=== PATIENT | female | born 1950 | race Caucasian/White ===

== ENCOUNTER → 2018-11-04 13:42 | Outpatient (CLI) | payer MEDICARE, OTHER, SELFPAY | PROVIDERS: PCP Family Medicine; Visit Provider Family Medicine | DX: I89.0 Lymphedema, not elsewhere classified (principal); S31.103A Unspecified open wound of abdominal wall, right lower quadrant without penetration into peritoneal cavity, initial encounter; E11.622 Type 2 diabetes mellitus with other skin ulcer | CPT/HCPCS: 11042; 87070; 87075; 87205; 99203; 99213 ==

== ENCOUNTER → 2018-11-18 13:02 | Outpatient (CLI) | payer MEDICARE, OTHER, SELFPAY | PROVIDERS: PCP Family Medicine; Visit Provider Family Medicine | DX: I89.0 Lymphedema, not elsewhere classified (principal); E11.622 Type 2 diabetes mellitus with other skin ulcer; S31.103D Unspecified open wound of abdominal wall, right lower quadrant without penetration into peritoneal cavity, subsequent encounter | CPT/HCPCS: 99213 ==

== ENCOUNTER → 2018-12-02 12:57 | Outpatient (CLI) | payer MEDICARE, OTHER, SELFPAY | PROVIDERS: PCP Family Medicine; Visit Provider Family Medicine | DX: I89.0 Lymphedema, not elsewhere classified (principal); S31.103A Unspecified open wound of abdominal wall, right lower quadrant without penetration into peritoneal cavity, initial encounter; E11.622 Type 2 diabetes mellitus with other skin ulcer; E66.01 Morbid (severe) obesity due to excess calories | CPT/HCPCS: 11042; 87070; 87075; 87077; 87186; 87205 ==

== ENCOUNTER → 2018-12-09 10:57 | Outpatient (CLI) | payer MEDICARE, OTHER, SELFPAY | PROVIDERS: PCP Family Medicine; Visit Provider Family Medicine | DX: E11.628 Type 2 diabetes mellitus with other skin complications (principal); I89.0 Lymphedema, not elsewhere classified; S31.103A Unspecified open wound of abdominal wall, right lower quadrant without penetration into peritoneal cavity, initial encounter; L08.9 Local infection of the skin and subcutaneous tissue, unspecified; B96.4 Proteus (mirabilis) (morganii) as the cause of diseases classified elsewhere; E66.01 Morbid (severe) obesity due to excess calories | CPT/HCPCS: 11044; 97597; 99203; 99213; 99214 ==

== ENCOUNTER → 2018-12-24 13:03 | Outpatient (CLI) | payer MEDICARE, OTHER, SELFPAY | PROVIDERS: PCP Family Medicine; Visit Provider Family Medicine | DX: E11.628 Type 2 diabetes mellitus with other skin complications (principal); S31.103D Unspecified open wound of abdominal wall, right lower quadrant without penetration into peritoneal cavity, subsequent encounter; I89.0 Lymphedema, not elsewhere classified; L08.9 Local infection of the skin and subcutaneous tissue, unspecified; B96.4 Proteus (mirabilis) (morganii) as the cause of diseases classified elsewhere; E66.01 Morbid (severe) obesity due to excess calories | CPT/HCPCS: 99212; 99213 ==

== ENCOUNTER → 2019-01-07 09:56 | Outpatient (CLI) | payer MEDICARE, OTHER, SELFPAY | PROVIDERS: PCP Family Medicine; Visit Provider Family Medicine | DX: I89.0 Lymphedema, not elsewhere classified (principal); S31.103A Unspecified open wound of abdominal wall, right lower quadrant without penetration into peritoneal cavity, initial encounter; E11.622 Type 2 diabetes mellitus with other skin ulcer | CPT/HCPCS: 11042; 87070; 87077; 87185; 87186; 87205 ==

== ENCOUNTER → 2019-02-10 13:09 | Outpatient (CLI) | payer MEDICARE, OTHER, SELFPAY | PROVIDERS: PCP Family Medicine; Visit Provider Family Medicine | DX: E11.628 Type 2 diabetes mellitus with other skin complications (principal); S31.103A Unspecified open wound of abdominal wall, right lower quadrant without penetration into peritoneal cavity, initial encounter; I89.0 Lymphedema, not elsewhere classified; E66.01 Morbid (severe) obesity due to excess calories | CPT/HCPCS: 17250 ==

== ENCOUNTER → 2019-02-24 09:47 | Outpatient (CLI) | payer MEDICARE, OTHER, SELFPAY | PROVIDERS: PCP Family Medicine; Visit Provider Family Medicine | DX: E11.628 Type 2 diabetes mellitus with other skin complications (principal); S31.103A Unspecified open wound of abdominal wall, right lower quadrant without penetration into peritoneal cavity, initial encounter; I89.0 Lymphedema, not elsewhere classified; R23.8 Other skin changes | CPT/HCPCS: 11042; 87070; 87075; 87077; 87147; 87185; 87186; 87205 ==

== ENCOUNTER → 2019-03-17 13:19 | Outpatient (CLI) | payer MEDICARE, OTHER, SELFPAY | PROVIDERS: PCP Family Medicine; Visit Provider Family Medicine | DX: I89.0 Lymphedema, not elsewhere classified (principal); S31.103A Unspecified open wound of abdominal wall, right lower quadrant without penetration into peritoneal cavity, initial encounter; E11.628 Type 2 diabetes mellitus with other skin complications | CPT/HCPCS: 11042; 97605; 99214 ==

== ENCOUNTER → 2019-03-19 08:47 | Outpatient (CLI) | payer MEDICARE, OTHER, SELFPAY | PROVIDERS: PCP Family Medicine; Visit Provider Family Medicine | DX: I89.0 Lymphedema, not elsewhere classified (principal); S31.103A Unspecified open wound of abdominal wall, right lower quadrant without penetration into peritoneal cavity, initial encounter | CPT/HCPCS: 97607 ==

== ENCOUNTER → 2019-03-24 09:31 | Outpatient (CLI) | payer MEDICARE, OTHER, SELFPAY | PROVIDERS: PCP Family Medicine; Visit Provider Family Medicine | DX: I89.0 Lymphedema, not elsewhere classified (principal); S31.103A Unspecified open wound of abdominal wall, right lower quadrant without penetration into peritoneal cavity, initial encounter; R23.8 Other skin changes; E11.628 Type 2 diabetes mellitus with other skin complications | CPT/HCPCS: 11042 ==

== ENCOUNTER → 2019-03-31 10:03 | Outpatient (CLI) | payer MEDICARE, OTHER, SELFPAY | PROVIDERS: PCP Family Medicine; Visit Provider Family Medicine | DX: E11.622 Type 2 diabetes mellitus with other skin ulcer (principal); I89.0 Lymphedema, not elsewhere classified; S31.103A Unspecified open wound of abdominal wall, right lower quadrant without penetration into peritoneal cavity, initial encounter; R23.8 Other skin changes | CPT/HCPCS: 97597 ==

== ENCOUNTER 2019-04-02 14:30 | Outpatient (RCR) | payer MEDICARE, OTHER, SELFPAY ==
--- NOTE | 2019-03-05 16:02 | PT.OIE ---
Current Diagnoses Lymphedema, not elsewhere classified (03/05/19) Unspecified open wound of abdominal wall, right lower quadrant without penetration into peritoneal cavity, initial encounter (03/05/19) Visit Care Team Role Provider Type Cee Diggs DO Primary Care Provider Non-Staff Specialty: Family Practice Address: [address] [place] [address], [phone] Email: Pawel Mckenzie MD Attending Provider Physician Specialty: Wound Care Address: [address] [place] [address], [phone] Email: [email or web address] Physical Therapy Initial Evaluation PT-OP-A Visit Information Start: 03/04/19 16:21 Freq: Status: Active Protocol: Document 03/05/19 14:30 SAK (Rec: 03/05/19 14:55 SAK [id number]) Out-Patient Physical Therapy Visit Information Visit Information Visit Type Initial Evaluation Visit Start Time 14:30 Visit Stop Time 15:21 Total Visit Minutes 51 Visit Number 1 Evaluation Information Evaluation Date 03/05/19 PT-OP-C Subjective Start: 03/04/19 16:21 Freq: Status: Active Protocol: Document 03/05/19 14:30 SAK (Rec: 03/05/19 14:55 SAK [id number]) OP-PT Subjective Patient Comments Patient Comments Patient reports Dr. Cruz thinks she has lymphedema in her abdomen though reports she has an abdominal hernia; previous history of hernia repair, redo, infection. States over the past 1 1/2 years hernia worsening right side of abdomen, denies pain. Denies LE swelling. Has been going wo wound care for abcess right side of abdomen; previously healed but then reopened. Has not been wearing any type of compression over her abdomen since her first hernia surgery . Has not had any lymph node removal. Patient is 5'3 275 lbs. OP-PT Pain Assessment Pain Assessment Grid Paper Pain Assessment Grid Completed No PT-OP-J Posture/Palpation/Skin Start: 03/04/19 16:21 Freq: Status: Active Protocol: Document 03/05/19 14:30 SAK (Rec: 03/05/19 15:47 SAK [id number]) Palpation Assessment Location abdomen Palpation Details soft, nontender, no fibrosis apparent. Good scar mobility from abdominal surgical scars. Skin Assessment Circumference Measurement below abdomen Measurement (Centimeters) 136.2 waist Measurement (Centimeters) 155 inferior to breast Measurement (Centimeters) 128.2 Incisional Assessment Incision Appearance/Comments prior abdominal surgical scars (see photos in chart) well- healed and good mobility. Other Assessments Skin Assessment Comments 2x2 dressing over abdominal wound, wound not observed. PT-OP-Q Treatments Start: 03/04/19 16:21 Freq: Status: Active Protocol: Document 03/05/19 14:30 [facility] (Rec: 03/05/19 15:59 [facility] [id number]) Self-Care/Home Management Treatment Education Other Education Discussed compression options, patient given information regarding Lymphedema products website and [facility] [place] for consultation regarding compression garment options for her abdominal edema. PT-OP-T Assessment and Plan Start: 03/04/19 16:21 Freq: Status: Active Protocol: Document 03/05/19 14:30 [facility] (Rec: 03/05/19 15:47 [facility] [id number]) Physical Therapy Assessment Rehab Potential Rehabilitation Potential Good Evaluation Complexity Number of Personal Factors/Comorbidities 1-2 Number of Body Systems Impaired 1-2 Clinical Presentation at Evaluation Evolving Impairments Impairments Edema Goals 1 Impairment edema Short Term Goal (STG) Patient to be instructed in edema management and be given information about obtaining appropriate compression garment for abdominal edema, instructed in deep breathing, ther ex, and self massage for edema reduction STG Duration 4 wks Alf Goal (LTG) Patient to be fit with appropriate abdominal compression garment and be independent in self-management . LTG Duration 8 wks Assessment Summary Assessment Patient presents with moderate edema in right side of abdomen which appears related to her abdominal hernia. She would benefit from the use of an abdominal compression garment, plus ther ex and massage for edema management. Additionally I recommend she return to her surgeon to consider surgical repair of her hernia which appears to be worsening. No fibrosis of tissue present. She is in agreement. Our facility did not have an appropriate compression garment for her; I showed her options online and gave her information for [facility] [place] to obtain appropriate garment. She was receptive and demonstrated good understanding. She will return for follow-up 03/19/19 and at that time will be instructed in ther ex (to be performed while wearing garment) and self-massage. At that time we will determine need for further PT sessions. Physical Therapy Plan Frequency and Duration Frequency of Treatment 1x/Week Duration of Treatment 8 wks Plan of Care Start Date 03/05/19 Plan of Care End Date 04/25/19 Therapeutic Interventions Therapeutic Interventions Home Exercise Program,Manual Therapy,Self-Care/Home Management,Therapeutic Exercises Next Visit Focus/Plan Next Note Type Treatment Note Next Visit Plan Assess any garment patient has obtained for proper fit and edema control. Circumferential measurements, instruct in ther ex and provide gentle massage for edema reduction with instruction for self- management..
--- NOTE | 2019-03-19 07:58 | PT-OP ANOTE ---
Patient cancelled appointment due to not having followed up with surgeon yet and hasn't yet obtained appropriate abdominal binder.
--- NOTE | 2019-04-02 15:27 | PT.OTN ---
Current Diagnoses Lymphedema, not elsewhere classified (04/02/19) Unspecified open wound of abdominal wall, right lower quadrant without penetration into peritoneal cavity, initial encounter (04/02/19) Physical Therapy Treatment Note PT-OP-A Visit Information Start: 03/04/19 16:21 Freq: Status: Active Protocol: Document 04/02/19 14:30 SAK (Rec: 04/02/19 15:26 SAK [id number]) Out-Patient Physical Therapy Visit Information Visit Information Visit Type Treatment Note Visit Start Time 14:30 Visit Stop Time 15:13 Total Visit Minutes 43 Visit Number 2 Evaluation Information Evaluation Date 03/05/19 PT-OP-C Subjective Start: 03/04/19 16:21 Freq: Status: Active Protocol: Document 04/02/19 14:30 SAK (Rec: 04/02/19 15:26 SAK [id number]) OP-PT Subjective Patient Comments Patient Comments States it has been a rough few weeks with use of wound vac and debridement of her wound. Reports Dr. Cruz says the abdominal binder she bought online (went to [employer] but states they didn't have other options besides what she could obtain online) can be worn over the wound vac. She has had moderate discomfort in her abdomen due to the debridement and wound vac. PT-OP-J Posture/Palpation/Skin Start: 03/04/19 16:21 Freq: Status: Active Protocol: Document 03/05/19 14:30 SAK (Rec: 03/05/19 15:47 SAK [id number]) Palpation Assessment Location abdomen Palpation Details soft, nontender, no fibrosis apparent. Good scar mobility from abdominal surgical scars. Skin Assessment Circumference Measurement below abdomen Measurement (Centimeters) 136.2 waist Measurement (Centimeters) 155 inferior to breast Measurement (Centimeters) 128.2 Incisional Assessment Incision Appearance/Comments prior abdominal surgical scars (see photos in chart) well- healed and good mobility. Other Assessments Skin Assessment Comments 2x2 dressing over abdominal wound, wound not observed. PT-OP-Q Treatments Start: 03/04/19 16:21 Freq: Status: Active Protocol: Document 04/02/19 14:30 SAK (Rec: 04/02/19 15:26 SAK [id number]) Therapeutic Exercises Supine Exercises shoulder flexion Reps/Minutes 2x5 hip IR/ER Comments 2x5 bridging Reps/Minutes 2x5 lower trunk rotation Reps/Minutes 2x5 diaphragmatic breathing Reps/Minutes 2x5 Self-Care/Home Management Treatment Education Other Education Patient abdominal binder applied; requires 2 people and patient to assist. Good fit achieved with multiple positions with no slipping. Patient instructed in HEP for activation of lymphatic system to be done while wearing binder. Also instructed to begin use of her exercise bike at home to facilitate lymphatic flow while wearing compression binder. Patient to contact PT with any further issues. May schedule follow-up to measure circumference after use of binder 1-2 wks. PT-OP-T Assessment and Plan Start: 03/04/19 16:21 Freq: Status: Active Protocol: Document 04/02/19 14:30 SAK (Rec: 04/02/19 15:26 SAK [id number]) Physical Therapy Assessment Rehab Potential Rehabilitation Potential Good Evaluation Complexity Number of Personal Factors/Comorbidities 1-2 Number of Body Systems Impaired 1-2 Clinical Presentation at Evaluation Evolving Impairments Impairments Edema Goals 1 Impairment edema Short Term Goal (STG) Patient to be instructed in edema management and be given information about obtaining appropriate compression garment for abdominal edema, instructed in deep breathing, ther ex, and self massage for edema reduction STG Duration goal met 04/02/19 Assisted Goal (LTG) Patient to be fit with appropriate abdominal compression garment and be independent in self-management . 04/02/19: binder fits appropriately, patient to have assistance of for proper fit and support and demonstrated good understanding. She demonstrated good understanding of exercises to be performed while wearing binder for compression. Was able to tolerate 10 min on ex recumbent elliptical and plans to start use of exercise bike at home. She will contact PT with any further difficulties or issues. LTG Duration 8 wks Assessment Summary Assessment Patient to be on hold for PT pending any further difficulties or issues with use of binder and self management of edema. Physical Therapy Plan Frequency and Duration Frequency of Treatment 1x/Week Duration of Treatment 8 wks Plan of Care Start Date 03/05/19 Plan of Care End Date 04/25/19 Therapeutic Interventions Therapeutic Interventions Home Exercise Program,Manual Therapy,Self-Care/Home Management,Therapeutic Exercises Next Visit Focus/Plan Next Note Type Treatment Note Next Visit Plan Patient on hold at this time for PT; will contact if any further issues with binder or therapeutic exercises. She is going to consult with surgeon regarding hernia.
--- NOTE | 2019-06-30 11:06 | PT.OPDS ---
Current Diagnoses Lymphedema, not elsewhere classified (04/02/19) Unspecified open wound of abdominal wall, right lower quadrant without penetration into peritoneal cavity, initial encounter (04/02/19) Visit Care Team Role Provider Type Cee Diggs DO Primary Care Provider Non-Staff Specialty: Family Practice Address: [address] [place] [address], [phone] Email: Pawel Mckenzie MD Attending Provider Physician Specialty: Wound Care Address: [address] [place] [address], [id number] Email: [email or web address] Visit Number Visit Number 2 Discharge Summary PT-OP-C Subjective Start: 03/04/19 16:21 Freq: Status: Active Protocol: Document 04/02/19 14:30 SAK (Rec: 04/02/19 15:26 SAK [id number]) OP-PT Subjective Patient Comments Patient Comments States it has been a rough few weeks with use of wound vac and debridement of her wound. Reports Dr. Cruz says the abdominal binder she bought online (went to [facility] but states they didn't have other options besides what she could obtain online) can be worn over the wound vac. She has had moderate discomfort in her abdomen due to the debridement and wound vac. PT-OP-J Posture/Palpation/Skin Start: 03/04/19 16:21 Freq: Status: Active Protocol: Document 03/05/19 14:30 SAK (Rec: 03/05/19 15:47 SAK [id number]) Palpation Assessment Location abdomen Palpation Details soft, nontender, no fibrosis apparent. Good scar mobility from abdominal surgical scars. Skin Assessment Circumference Measurement below abdomen Measurement (Centimeters) 136.2 waist Measurement (Centimeters) 155 inferior to breast Measurement (Centimeters) 128.2 Incisional Assessment Incision Appearance/Comments prior abdominal surgical scars (see photos in chart) well- healed and good mobility. Other Assessments Skin Assessment Comments 2x2 dressing over abdominal wound, wound not observed. PT-OP-T Assessment and Plan Start: 03/04/19 16:21 Freq: Status: Active Protocol: Document 06/30/19 11:05 SAK (Rec: 06/30/19 11:06 PHILOMENA [id number]) Physical Therapy Plan Discharge Physical Therapy Discharge Reasons No Longer Attending PT Discharge Comments following up with physician and surgeon
== END 2019-07-01 07:56 ==
LOC: PHYS 14:30
PROVIDERS: PCP Family Medicine; Visit Provider Family Medicine
DX: I89.0 Lymphedema, not elsewhere classified (principal); S31.103A Unspecified open wound of abdominal wall, right lower quadrant without penetration into peritoneal cavity, initial encounter
CPT/HCPCS: 97110; 97162; 97535

== ENCOUNTER → 2019-04-03 14:55 | Outpatient (CLI) | payer MEDICARE, OTHER, SELFPAY | PROVIDERS: PCP Family Medicine; Visit Provider Family Medicine | DX: I89.0 Lymphedema, not elsewhere classified (principal); S31.103A Unspecified open wound of abdominal wall, right lower quadrant without penetration into peritoneal cavity, initial encounter | CPT/HCPCS: 97607 ==

== ENCOUNTER → 2019-04-10 10:08 | Outpatient (CLI) | payer MEDICARE, OTHER, SELFPAY | PROVIDERS: PCP Family Medicine; Visit Provider Family Medicine | DX: E11.628 Type 2 diabetes mellitus with other skin complications (principal); S31.103A Unspecified open wound of abdominal wall, right lower quadrant without penetration into peritoneal cavity, initial encounter; I89.0 Lymphedema, not elsewhere classified; R23.8 Other skin changes | CPT/HCPCS: 11042; 97607 ==

== ENCOUNTER → 2019-04-16 14:54 | Outpatient (CLI) | payer MEDICARE, OTHER, SELFPAY | PROVIDERS: PCP Family Medicine; Visit Provider Family Medicine | DX: I89.0 Lymphedema, not elsewhere classified (principal); S31.103A Unspecified open wound of abdominal wall, right lower quadrant without penetration into peritoneal cavity, initial encounter; E11.628 Type 2 diabetes mellitus with other skin complications | CPT/HCPCS: 11042 ==

== ENCOUNTER → 2019-05-05 10:57 | Outpatient (CLI) | payer MEDICARE, OTHER, SELFPAY | PROVIDERS: PCP Family Medicine; Visit Provider Family Medicine | DX: E11.628 Type 2 diabetes mellitus with other skin complications (principal); I89.0 Lymphedema, not elsewhere classified; S31.103A Unspecified open wound of abdominal wall, right lower quadrant without penetration into peritoneal cavity, initial encounter; R23.8 Other skin changes | CPT/HCPCS: 17250 ==

== ENCOUNTER → 2019-05-12 10:09 | Outpatient (CLI) | payer MEDICARE, OTHER, SELFPAY | PROVIDERS: PCP Family Medicine; Visit Provider Family Medicine | DX: I89.0 Lymphedema, not elsewhere classified (principal); R23.8 Other skin changes; Z79.84 Long term (current) use of oral hypoglycemic drugs; E11.628 Type 2 diabetes mellitus with other skin complications | CPT/HCPCS: 99212 ==

== ENCOUNTER → 2020-02-23 12:55 | Outpatient (CLI) | payer MEDICARE, OTHER, SELFPAY | PROVIDERS: PCP Family Medicine; Referring Provider Family Medicine; Visit Provider Family Medicine | DX: I89.0 Lymphedema, not elsewhere classified (principal); S31.103A Unspecified open wound of abdominal wall, right lower quadrant without penetration into peritoneal cavity, initial encounter; E11.622 Type 2 diabetes mellitus with other skin ulcer; L08.9 Local infection of the skin and subcutaneous tissue, unspecified | CPT/HCPCS: 11042; 87070; 87075; 87077; 87147; 87186; 87205; 99214 ==

== ENCOUNTER → 2020-03-01 11:36 | Outpatient (CLI) | payer MEDICARE, OTHER, SELFPAY | PROVIDERS: PCP Family Medicine; Referring Provider Family Medicine; Visit Provider Family Medicine | DX: I89.0 Lymphedema, not elsewhere classified (principal); S31.103A Unspecified open wound of abdominal wall, right lower quadrant without penetration into peritoneal cavity, initial encounter; E11.628 Type 2 diabetes mellitus with other skin complications | CPT/HCPCS: 11042; 11045 ==

== ENCOUNTER → 2020-03-08 10:52 | Outpatient (CLI) | payer MEDICARE, OTHER, SELFPAY | PROVIDERS: PCP Family Medicine; Referring Provider Family Medicine; Visit Provider Family Medicine | DX: I89.0 Lymphedema, not elsewhere classified (principal); S31.103A Unspecified open wound of abdominal wall, right lower quadrant without penetration into peritoneal cavity, initial encounter | CPT/HCPCS: 99213 ==

== ENCOUNTER → 2020-03-15 14:15 | Outpatient (CLI) | payer MEDICARE, OTHER, SELFPAY | PROVIDERS: PCP Family Medicine; Referring Provider Family Medicine; Visit Provider Family Medicine | DX: I89.0 Lymphedema, not elsewhere classified (principal); E11.628 Type 2 diabetes mellitus with other skin complications; S31.103A Unspecified open wound of abdominal wall, right lower quadrant without penetration into peritoneal cavity, initial encounter | CPT/HCPCS: 11042; 11045 ==

== ENCOUNTER → 2020-03-22 15:33 | Outpatient (CLI) | payer MEDICARE, OTHER, SELFPAY | PROVIDERS: PCP Family Medicine; Referring Provider Family Medicine; Visit Provider Family Medicine | DX: I89.0 Lymphedema, not elsewhere classified (principal); S31.103A Unspecified open wound of abdominal wall, right lower quadrant without penetration into peritoneal cavity, initial encounter; E11.628 Type 2 diabetes mellitus with other skin complications | CPT/HCPCS: 11042 ==

== ENCOUNTER → 2020-03-29 15:17 | Outpatient (CLI) | payer MEDICARE, OTHER, SELFPAY | PROVIDERS: PCP Family Medicine; Referring Provider Family Medicine; Visit Provider Family Medicine | DX: I89.0 Lymphedema, not elsewhere classified (principal); E11.628 Type 2 diabetes mellitus with other skin complications; S31.103A Unspecified open wound of abdominal wall, right lower quadrant without penetration into peritoneal cavity, initial encounter; E11.622 Type 2 diabetes mellitus with other skin ulcer; L08.9 Local infection of the skin and subcutaneous tissue, unspecified; R60.0 Localized edema | CPT/HCPCS: 11042; 11045; 87070; 87075; 87077; 87186; 87205; 99214 ==

== ENCOUNTER → 2020-04-13 14:27 | Outpatient (CLI) | payer MEDICARE, OTHER, SELFPAY | PROVIDERS: PCP Family Medicine; Referring Provider Family Medicine; Visit Provider Family Medicine | DX: E11.628 Type 2 diabetes mellitus with other skin complications (principal); I89.0 Lymphedema, not elsewhere classified; S31.103A Unspecified open wound of abdominal wall, right lower quadrant without penetration into peritoneal cavity, initial encounter | CPT/HCPCS: 15271; Q4110 ==

== ENCOUNTER → 2020-04-19 09:39 | Outpatient (CLI) | payer MEDICARE, OTHER, SELFPAY | PROVIDERS: PCP Family Medicine; Referring Provider Family Medicine; Visit Provider Family Medicine | DX: E11.628 Type 2 diabetes mellitus with other skin complications (principal); I89.0 Lymphedema, not elsewhere classified; S31.103A Unspecified open wound of abdominal wall, right lower quadrant without penetration into peritoneal cavity, initial encounter; L08.9 Local infection of the skin and subcutaneous tissue, unspecified | CPT/HCPCS: 11042; 87070; 87077; 87186; 87205; 99214 ==

== ENCOUNTER → 2020-04-25 10:30 | Outpatient (CLI) | payer MEDICARE, OTHER, SELFPAY | PROVIDERS: PCP Family Medicine; Referring Provider Family Medicine; Visit Provider Family Medicine | DX: I89.0 Lymphedema, not elsewhere classified (principal); S31.103A Unspecified open wound of abdominal wall, right lower quadrant without penetration into peritoneal cavity, initial encounter; L08.9 Local infection of the skin and subcutaneous tissue, unspecified; L03.311 Cellulitis of abdominal wall; E11.628 Type 2 diabetes mellitus with other skin complications | CPT/HCPCS: 11042; 87070; 87075; 87077; 87186; 87205; 99214 ==

== ENCOUNTER → 2020-05-02 15:11 | Outpatient (CLI) | payer MEDICARE, OTHER, SELFPAY | PROVIDERS: PCP Family Medicine; Referring Provider Family Medicine; Visit Provider Family Medicine | DX: E11.628 Type 2 diabetes mellitus with other skin complications (principal); S31.103A Unspecified open wound of abdominal wall, right lower quadrant without penetration into peritoneal cavity, initial encounter; I89.0 Lymphedema, not elsewhere classified; Z79.2 Long term (current) use of antibiotics | CPT/HCPCS: 11042; 99213; Q4105 ==

== ENCOUNTER → 2020-05-09 14:35 | Outpatient (CLI) | payer MEDICARE, OTHER, SELFPAY | PROVIDERS: PCP Family Medicine; Referring Provider Family Medicine; Visit Provider Family Medicine | DX: I89.0 Lymphedema, not elsewhere classified (principal); S31.103A Unspecified open wound of abdominal wall, right lower quadrant without penetration into peritoneal cavity, initial encounter; Z68.42 Body mass index [BMI] 45.0-49.9, adult; E11.628 Type 2 diabetes mellitus with other skin complications; E66.01 Morbid (severe) obesity due to excess calories | CPT/HCPCS: 11042 ==

== ENCOUNTER → 2020-05-17 14:59 | Outpatient (CLI) | payer MEDICARE, OTHER, SELFPAY | PROVIDERS: PCP Family Medicine; Referring Provider Family Medicine; Visit Provider Family Medicine | DX: I89.0 Lymphedema, not elsewhere classified (principal); S31.103A Unspecified open wound of abdominal wall, right lower quadrant without penetration into peritoneal cavity, initial encounter; E11.628 Type 2 diabetes mellitus with other skin complications; E66.01 Morbid (severe) obesity due to excess calories; Z68.42 Body mass index [BMI] 45.0-49.9, adult | CPT/HCPCS: 11042 ==

== ENCOUNTER → 2020-05-18 09:39 | Outpatient (CLI) | payer MEDICARE, OTHER, SELFPAY | PROVIDERS: PCP Family Medicine; Referring Provider Family Medicine; Visit Provider Family Medicine | DX: I89.0 Lymphedema, not elsewhere classified (principal); L08.9 Local infection of the skin and subcutaneous tissue, unspecified | CPT/HCPCS: 87070; 87205; 99213 ==

== ENCOUNTER → 2020-05-18 14:16 | Outpatient (ROUT) | payer MEDICARE, OTHER, SELFPAY | PROVIDERS: PCP Family Medicine; Visit Provider Family Medicine | DX: L08.9 Local infection of the skin and subcutaneous tissue, unspecified (principal) | CPT/HCPCS: 87070; 87205 ==

== ENCOUNTER → 2020-05-25 11:21 | Outpatient (CLI) | payer MEDICARE, OTHER, SELFPAY | PROVIDERS: PCP Family Medicine; Referring Provider Family Medicine; Visit Provider Family Medicine | DX: I89.0 Lymphedema, not elsewhere classified (principal); S31.103A Unspecified open wound of abdominal wall, right lower quadrant without penetration into peritoneal cavity, initial encounter; E11.628 Type 2 diabetes mellitus with other skin complications | CPT/HCPCS: 11042 ==

== ENCOUNTER → 2020-06-01 10:48 | Outpatient (CLI) | payer MEDICARE, OTHER, SELFPAY | PROVIDERS: PCP Family Medicine; Referring Provider Family Medicine; Visit Provider Family Medicine | DX: I89.0 Lymphedema, not elsewhere classified (principal); S31.103A Unspecified open wound of abdominal wall, right lower quadrant without penetration into peritoneal cavity, initial encounter; E66.01 Morbid (severe) obesity due to excess calories; E11.628 Type 2 diabetes mellitus with other skin complications | CPT/HCPCS: 15271; Q4110 ==

== ENCOUNTER → 2020-06-08 13:47 | Outpatient (CLI) | payer MEDICARE, OTHER, SELFPAY | PROVIDERS: PCP Family Medicine; Referring Provider Family Medicine; Visit Provider Family Medicine | DX: I89.0 Lymphedema, not elsewhere classified (principal); S31.103A Unspecified open wound of abdominal wall, right lower quadrant without penetration into peritoneal cavity, initial encounter | CPT/HCPCS: 99212 ==

== ENCOUNTER → 2020-06-15 14:20 | Outpatient (CLI) | payer MEDICARE, OTHER, SELFPAY | PROVIDERS: PCP Family Medicine; Referring Provider Family Medicine; Visit Provider Family Medicine | DX: I89.0 Lymphedema, not elsewhere classified (principal); S31.103A Unspecified open wound of abdominal wall, right lower quadrant without penetration into peritoneal cavity, initial encounter; E11.628 Type 2 diabetes mellitus with other skin complications | CPT/HCPCS: 11042 ==

== ENCOUNTER → 2020-06-22 10:02 | Outpatient (CLI) | payer MEDICARE, OTHER, SELFPAY | PROVIDERS: PCP Family Medicine; Referring Provider Family Medicine; Visit Provider Family Medicine | DX: I89.0 Lymphedema, not elsewhere classified (principal); S31.103A Unspecified open wound of abdominal wall, right lower quadrant without penetration into peritoneal cavity, initial encounter; E11.628 Type 2 diabetes mellitus with other skin complications; L08.9 Local infection of the skin and subcutaneous tissue, unspecified | CPT/HCPCS: 87070; 87077; 87147; 87186; 87205; 97597; 99214 ==

== ENCOUNTER → 2020-06-22 14:55 | Outpatient (ROUT) | payer MEDICARE, OTHER, SELFPAY | PROVIDERS: PCP Family Medicine; Visit Provider Family Medicine | DX: L08.9 Local infection of the skin and subcutaneous tissue, unspecified (principal) | CPT/HCPCS: 87070; 87075; 87077; 87147; 87186; 87205 ==

== ENCOUNTER → 2020-06-30 10:18 | Outpatient (CLI) | payer MEDICARE, OTHER, SELFPAY | PROVIDERS: PCP Family Medicine; Referring Provider Family Medicine; Visit Provider Family Medicine | DX: E11.628 Type 2 diabetes mellitus with other skin complications (principal); I89.0 Lymphedema, not elsewhere classified; S31.103A Unspecified open wound of abdominal wall, right lower quadrant without penetration into peritoneal cavity, initial encounter; L08.9 Local infection of the skin and subcutaneous tissue, unspecified; B95.61 Methicillin susceptible Staphylococcus aureus infection as the cause of diseases classified elsewhere; E66.01 Morbid (severe) obesity due to excess calories; Z68.42 Body mass index [BMI] 45.0-49.9, adult; Z48.01 Encounter for change or removal of surgical wound dressing | CPT/HCPCS: 99213; 99214 ==

== ENCOUNTER → 2020-07-07 09:25 | Outpatient (CLI) | payer MEDICARE, OTHER, SELFPAY | PROVIDERS: PCP Family Medicine; Referring Provider Family Medicine; Visit Provider Family Medicine | DX: I89.0 Lymphedema, not elsewhere classified (principal); E11.628 Type 2 diabetes mellitus with other skin complications; S31.103A Unspecified open wound of abdominal wall, right lower quadrant without penetration into peritoneal cavity, initial encounter; S31.105A Unspecified open wound of abdominal wall, periumbilic region without penetration into peritoneal cavity, initial encounter; E66.01 Morbid (severe) obesity due to excess calories; Z68.42 Body mass index [BMI] 45.0-49.9, adult | CPT/HCPCS: 87070; 87075; 87077; 87186; 87205; 97597; 99214 ==

== ENCOUNTER → 2020-07-13 13:28 | Outpatient (CLI) | payer MEDICARE, OTHER, SELFPAY | PROVIDERS: PCP Family Medicine; Referring Provider Family Medicine; Visit Provider Family Medicine | DX: I89.0 Lymphedema, not elsewhere classified (principal); E11.628 Type 2 diabetes mellitus with other skin complications; S31.103A Unspecified open wound of abdominal wall, right lower quadrant without penetration into peritoneal cavity, initial encounter; S31.105A Unspecified open wound of abdominal wall, periumbilic region without penetration into peritoneal cavity, initial encounter; L08.9 Local infection of the skin and subcutaneous tissue, unspecified; B95.7 Other staphylococcus as the cause of diseases classified elsewhere; E66.01 Morbid (severe) obesity due to excess calories; Z68.41 Body mass index [BMI] 40.0-44.9, adult | CPT/HCPCS: 11042; 97597 ==

== ENCOUNTER → 2020-07-27 10:38 | Outpatient (CLI) | payer MEDICARE, OTHER, SELFPAY | PROVIDERS: PCP Family Medicine; Referring Provider Family Medicine; Visit Provider Family Medicine | DX: E11.628 Type 2 diabetes mellitus with other skin complications (principal); I89.0 Lymphedema, not elsewhere classified; S31.103A Unspecified open wound of abdominal wall, right lower quadrant without penetration into peritoneal cavity, initial encounter; S31.105A Unspecified open wound of abdominal wall, periumbilic region without penetration into peritoneal cavity, initial encounter | CPT/HCPCS: 15271; 15272; Q4110 ==

== ENCOUNTER → 2020-08-03 14:13 | Outpatient (CLI) | payer MEDICARE, OTHER, SELFPAY | PROVIDERS: PCP Family Medicine; Referring Provider Family Medicine; Visit Provider Family Medicine | DX: I89.0 Lymphedema, not elsewhere classified (principal); S31.103A Unspecified open wound of abdominal wall, right lower quadrant without penetration into peritoneal cavity, initial encounter; S31.105A Unspecified open wound of abdominal wall, periumbilic region without penetration into peritoneal cavity, initial encounter; T36.8X5A Adverse effect of other systemic antibiotics, initial encounter; E11.628 Type 2 diabetes mellitus with other skin complications | CPT/HCPCS: 11042; 11045; 87070; 87075; 87077; 87186; 87205; 99214 ==

== ENCOUNTER → 2020-08-11 10:33 | Outpatient (CLI) | payer MEDICARE, OTHER, SELFPAY | PROVIDERS: PCP Family Medicine; Referring Provider Family Medicine; Visit Provider Family Medicine | DX: I89.0 Lymphedema, not elsewhere classified (principal); S31.103A Unspecified open wound of abdominal wall, right lower quadrant without penetration into peritoneal cavity, initial encounter; E11.622 Type 2 diabetes mellitus with other skin ulcer; S31.105A Unspecified open wound of abdominal wall, periumbilic region without penetration into peritoneal cavity, initial encounter; S31.100A Unspecified open wound of abdominal wall, right upper quadrant without penetration into peritoneal cavity, initial encounter; L08.9 Local infection of the skin and subcutaneous tissue, unspecified; B95.7 Other staphylococcus as the cause of diseases classified elsewhere; E11.628 Type 2 diabetes mellitus with other skin complications | CPT/HCPCS: 11042; 99214 ==

== ENCOUNTER → 2020-08-11 14:36 | Outpatient (ROUT) | payer MEDICARE, OTHER, SELFPAY | PROVIDERS: PCP Family Medicine; Visit Provider Family Medicine | DX: L08.9 Local infection of the skin and subcutaneous tissue, unspecified (principal) | CPT/HCPCS: 87070; 87075; 87077; 87147; 87186; 87205 ==

== ENCOUNTER → 2020-08-24 10:24 | Outpatient (CLI) | payer MEDICARE, OTHER, SELFPAY | PROVIDERS: PCP Family Medicine; Referring Provider Family Medicine; Visit Provider Family Medicine | DX: I89.0 Lymphedema, not elsewhere classified (principal); S31.103A Unspecified open wound of abdominal wall, right lower quadrant without penetration into peritoneal cavity, initial encounter; E11.622 Type 2 diabetes mellitus with other skin ulcer; S31.105A Unspecified open wound of abdominal wall, periumbilic region without penetration into peritoneal cavity, initial encounter; B95.7 Other staphylococcus as the cause of diseases classified elsewhere | CPT/HCPCS: 87070; 87075; 87205; 99213 ==

== ENCOUNTER → 2020-08-31 15:15 | Outpatient (CLI) | payer MEDICARE, OTHER, SELFPAY | PROVIDERS: PCP Family Medicine; Referring Provider Family Medicine; Visit Provider Family Medicine | DX: E11.628 Type 2 diabetes mellitus with other skin complications (principal); I89.0 Lymphedema, not elsewhere classified; S31.103A Unspecified open wound of abdominal wall, right lower quadrant without penetration into peritoneal cavity, initial encounter; L08.9 Local infection of the skin and subcutaneous tissue, unspecified | CPT/HCPCS: 99213; 99214 ==

== ENCOUNTER → 2020-10-10 12:08 | Outpatient (CLI) | payer MEDICARE, OTHER, SELFPAY | PROVIDERS: PCP Family Medicine; Referring Provider Family Medicine; Visit Provider Family Medicine | DX: E11.628 Type 2 diabetes mellitus with other skin complications (principal); I89.0 Lymphedema, not elsewhere classified; S31.103A Unspecified open wound of abdominal wall, right lower quadrant without penetration into peritoneal cavity, initial encounter; L08.9 Local infection of the skin and subcutaneous tissue, unspecified; E66.01 Morbid (severe) obesity due to excess calories; Z68.42 Body mass index [BMI] 45.0-49.9, adult | CPT/HCPCS: 11042; 99213 ==

== ENCOUNTER → 2020-10-31 13:19 | Outpatient (CLI) | payer MEDICARE, OTHER, SELFPAY | PROVIDERS: PCP Family Medicine; Referring Provider Family Medicine; Visit Provider Family Medicine | DX: I89.0 Lymphedema, not elsewhere classified (principal); S31.103A Unspecified open wound of abdominal wall, right lower quadrant without penetration into peritoneal cavity, initial encounter; E11.622 Type 2 diabetes mellitus with other skin ulcer | CPT/HCPCS: 97597 ==

== ENCOUNTER → 2020-11-17 11:09 | Outpatient (CLI) | payer MEDICARE, OTHER, SELFPAY | PROVIDERS: PCP Family Medicine; Referring Provider Family Medicine; Visit Provider Family Medicine | DX: I89.0 Lymphedema, not elsewhere classified (principal); S31.103A Unspecified open wound of abdominal wall, right lower quadrant without penetration into peritoneal cavity, initial encounter; E11.622 Type 2 diabetes mellitus with other skin ulcer; E66.01 Morbid (severe) obesity due to excess calories; Z68.42 Body mass index [BMI] 45.0-49.9, adult | CPT/HCPCS: 97597; 99213 ==

== ENCOUNTER → 2020-12-08 13:50 | Outpatient (CLI) | payer MEDICARE, OTHER, SELFPAY | PROVIDERS: PCP Family Medicine; Referring Provider Family Medicine; Visit Provider Family Medicine | DX: I89.0 Lymphedema, not elsewhere classified (principal); L98.491 Non-pressure chronic ulcer of skin of other sites limited to breakdown of skin; E11.622 Type 2 diabetes mellitus with other skin ulcer | CPT/HCPCS: 97597; 99212 ==

== ENCOUNTER → 2020-12-29 10:33 | Outpatient (CLI) | payer MEDICARE, OTHER, SELFPAY | PROVIDERS: PCP Family Medicine; Referring Provider Family Medicine; Visit Provider Family Medicine | DX: I89.0 Lymphedema, not elsewhere classified (principal); L98.491 Non-pressure chronic ulcer of skin of other sites limited to breakdown of skin | CPT/HCPCS: 99213 ==

== ENCOUNTER → 2021-01-18 10:03 | Outpatient (CLI) | payer MEDICARE, OTHER, SELFPAY | PROVIDERS: PCP Family Medicine; Referring Provider Family Medicine; Visit Provider Family Medicine | DX: I89.0 Lymphedema, not elsewhere classified (principal); S31.103A Unspecified open wound of abdominal wall, right lower quadrant without penetration into peritoneal cavity, initial encounter; E11.622 Type 2 diabetes mellitus with other skin ulcer | CPT/HCPCS: 97597; 99212 ==

== ENCOUNTER → 2021-02-01 10:13 | Outpatient (CLI) | payer MEDICARE, OTHER, SELFPAY | PROVIDERS: PCP Family Medicine; Referring Provider Family Medicine; Visit Provider Family Medicine | DX: I89.0 Lymphedema, not elsewhere classified (principal); S31.103A Unspecified open wound of abdominal wall, right lower quadrant without penetration into peritoneal cavity, initial encounter; E11.628 Type 2 diabetes mellitus with other skin complications | CPT/HCPCS: 11042; 99212 ==

== ENCOUNTER → 2021-02-22 10:01 | Outpatient (CLI) | payer MEDICARE, OTHER, SELFPAY | PROVIDERS: PCP Family Medicine; Referring Provider Family Medicine; Visit Provider Family Medicine | DX: S31.103A Unspecified open wound of abdominal wall, right lower quadrant without penetration into peritoneal cavity, initial encounter (principal); E11.628 Type 2 diabetes mellitus with other skin complications | CPT/HCPCS: 99213 ==

== ENCOUNTER → 2021-03-01 10:41 | Outpatient (CLI) | payer MEDICARE, OTHER, SELFPAY | PROVIDERS: PCP Family Medicine; Referring Provider Family Medicine; Visit Provider Family Medicine | DX: S31.103A Unspecified open wound of abdominal wall, right lower quadrant without penetration into peritoneal cavity, initial encounter (principal); E11.622 Type 2 diabetes mellitus with other skin ulcer | CPT/HCPCS: 87070; 87075; 87077; 87147; 87186; 87205; 99212; 99213 ==

== ENCOUNTER → 2021-03-21 14:20 | Outpatient (CLI) | payer MEDICARE, OTHER, SELFPAY | PROVIDERS: PCP Family Medicine; Referring Provider Family Medicine; Visit Provider Family Medicine | DX: S31.103A Unspecified open wound of abdominal wall, right lower quadrant without penetration into peritoneal cavity, initial encounter (principal); E11.622 Type 2 diabetes mellitus with other skin ulcer | CPT/HCPCS: 15271; 99213; Q4132 ==

== ENCOUNTER → 2021-03-28 14:32 | Outpatient (CLI) | payer MEDICARE, OTHER, SELFPAY | PROVIDERS: PCP Family Medicine; Referring Provider Family Medicine; Visit Provider Family Medicine | DX: S31.103A Unspecified open wound of abdominal wall, right lower quadrant without penetration into peritoneal cavity, initial encounter (principal); E11.622 Type 2 diabetes mellitus with other skin ulcer | CPT/HCPCS: 15271; Q4133 ==

== ENCOUNTER → 2021-04-04 10:04 | Outpatient (CLI) | payer MEDICARE, OTHER, SELFPAY | PROVIDERS: PCP Internal Medicine; Referring Provider Internal Medicine; Visit Provider Family Medicine | DX: S31.103A Unspecified open wound of abdominal wall, right lower quadrant without penetration into peritoneal cavity, initial encounter (principal); E11.622 Type 2 diabetes mellitus with other skin ulcer | CPT/HCPCS: 15271; Q4133 ==

== ENCOUNTER → 2021-04-17 13:19 | Outpatient (CLI) | payer MEDICARE, OTHER, SELFPAY | PROVIDERS: PCP Internal Medicine; Referring Provider Internal Medicine; Visit Provider Family Medicine | DX: S31.103A Unspecified open wound of abdominal wall, right lower quadrant without penetration into peritoneal cavity, initial encounter (principal); E11.622 Type 2 diabetes mellitus with other skin ulcer; L08.9 Local infection of the skin and subcutaneous tissue, unspecified | CPT/HCPCS: 87070; 87075; 87077; 87147; 87186; 87205; 99213 ==

== ENCOUNTER → 2021-04-25 09:36 | Outpatient (CLI) | payer MEDICARE, OTHER, SELFPAY ==
[2021-04-25 10:45] LABS: Hemoglobin A1C% w Est Avg Glu 8.2 % (4.0-6.0)
[2021-04-25 11:04] LABS: Alanine Aminotransferase 36 IU/L (<35); Albumin 4.1 g/dL (3.5-5.0); Albumin Globulin Ratio 1.5 (1.0-2.8); Alkaline Phosphatase 52 U/L (38-126); Aspartate Aminotransferase 59 IU/L (14-36); BUN Creatinine Ratio 19.5 (6-22); Bilirubin Total 1.2 mg/dL (0.2-1.3); Blood Urea Nitrogen 16 mg/dL (7-17); Calcium 10.2 mg/dL (8.4-10.2); Carbon Dioxide 25 mmol/L (22-32); Chloride 105 mmol/L (98-107); Creatine Kinase 35 U/L (30-135); Estimated Glomerular Filt Rate > 60.0 mL/min (>60); Globulin 2.8 g/dL (1.7-4.1); Glucose 197 mg/dL (80-110); HEMOLYSIS 15 (0-50); Potassium 4.5 mmol/L (3.4-5.1); Sodium 138 mmol/L (137-145); Total Protein 6.9 g/dL (6.3-8.2)
[2021-04-25 12:02] LABS: TSH w/ Reflex to FT4 0.32 uIU/mL (0.47-4.68)
[2021-04-25 12:28] LABS: Free T4, Direct Thyroxine 1.13 ng/dL (0.78-2.19)
== END ==
PROVIDERS: PCP Internal Medicine; Referring Provider Internal Medicine; Visit Provider Internal Medicine
DX: E11.9 Type 2 diabetes mellitus without complications (principal); E78.2 Mixed hyperlipidemia; F32.A Depression, unspecified; I10 Essential (primary) hypertension; M79.10 Myalgia, unspecified site
CPT/HCPCS: 36415; 80053; 82550; 83036; 84439; 84443

== ENCOUNTER → 2021-05-01 14:12 | Outpatient (CLI) | payer MEDICARE, OTHER, SELFPAY | PROVIDERS: PCP Internal Medicine; Referring Provider Internal Medicine; Visit Provider Family Medicine | DX: L98.492 Non-pressure chronic ulcer of skin of other sites with fat layer exposed (principal); E11.622 Type 2 diabetes mellitus with other skin ulcer; E66.01 Morbid (severe) obesity due to excess calories; Z68.42 Body mass index [BMI] 45.0-49.9, adult | CPT/HCPCS: 11042 ==

== ENCOUNTER → 2021-05-22 15:11 | Outpatient (CLI) | payer MEDICARE, OTHER, SELFPAY | PROVIDERS: PCP Internal Medicine; Referring Provider Internal Medicine; Visit Provider Family Medicine | DX: Z09 Encounter for follow-up examination after completed treatment for conditions other than malignant neoplasm (principal); E11.9 Type 2 diabetes mellitus without complications; E66.01 Morbid (severe) obesity due to excess calories; Z68.42 Body mass index [BMI] 45.0-49.9, adult; Z79.84 Long term (current) use of oral hypoglycemic drugs | CPT/HCPCS: 99212; 99213 ==

== ENCOUNTER → 2021-07-27 10:31 | Outpatient (CLI) | payer MEDICARE, OTHER, SELFPAY ==
[2021-07-27 12:25] LABS: Hemoglobin A1C% w Est Avg Glu 8.6 % (4.0-6.0)
[2021-07-27 13:13] LABS: HEMOLYSIS < 15 (0-50); Iron 100 ug/dL (37-170)
[2021-07-27 13:20] LABS: Alanine Aminotransferase 57 IU/L (<35); Albumin 4.2 g/dL (3.5-5.0); Albumin Globulin Ratio 1.6 (1.0-2.8); Alkaline Phosphatase 56 U/L (38-126); Aspartate Aminotransferase 81 IU/L (14-36); BUN Creatinine Ratio 22.4 (6-22); Bilirubin Total 1.5 mg/dL (0.2-1.3); Blood Urea Nitrogen 19 mg/dL (7-17); Calcium 9.4 mg/dL (8.4-10.2); Carbon Dioxide 27 mmol/L (22-32); Chloride 105 mmol/L (98-107); Estimated Glomerular Filt Rate > 60 mL/min (>60); Globulin 2.7 g/dL (1.7-4.1); Glucose 227 mg/dL (80-110); HEMOLYSIS < 15 (0-50); Potassium 4.7 mmol/L (3.4-5.1); Sodium 140 mmol/L (137-145); Total Protein 6.9 g/dL (6.3-8.2)
[2021-07-27 13:24] LABS: Percent Iron Saturation 25 % (15-50); Total Iron Binding Capacity 393 ug/dL (265-497); Transferrin 311 mg/dL (206-381)
[2021-07-27 16:39] LABS: Hep C Virus Ab w/Reflex Quant NEGATIVE s/c (NEGATIVE); Hepatitis B Surface Antigen NEGATIVE s/c (NEGATIVE)
== END ==
PROVIDERS: PCP Internal Medicine; Referring Provider Internal Medicine; Visit Provider Internal Medicine
DX: E11.9 Type 2 diabetes mellitus without complications (principal); E66.01 Morbid (severe) obesity due to excess calories; R74.01 Elevation of levels of liver transaminase levels
CPT/HCPCS: 36415; 80053; 83036; 83540; 83550; 86803; 87340

== ENCOUNTER → 2021-11-17 11:56 | Outpatient (CLI) | payer MEDICARE, OTHER, SELFPAY ==
[2021-11-17 12:45] LABS: Hemoglobin A1C% w Est Avg Glu 7.6 % (4.0-6.0)
[2021-11-17 13:07] LABS: Alanine Aminotransferase 35 IU/L (<35); Albumin 4.1 g/dL (3.5-5.0); Albumin Globulin Ratio 1.4 (1.0-2.8); Alkaline Phosphatase 53 U/L (38-126); Aspartate Aminotransferase 57 IU/L (14-36); BUN Creatinine Ratio 23.2 (6-22); Bilirubin Total 1.7 mg/dL (0.2-1.3); Blood Urea Nitrogen 19 mg/dL (7-17); Calcium 10.1 mg/dL (8.4-10.2); Carbon Dioxide 29 mmol/L (22-32); Chloride 103 mmol/L (98-107); Estimated Glomerular Filt Rate > 60 mL/min (>60); Globulin 2.9 g/dL (1.7-4.1); Glucose 161 mg/dL (80-110); HEMOLYSIS < 15 (0-50); Potassium 4.7 mmol/L (3.4-5.1); Sodium 139 mmol/L (137-145)
== END ==
PROVIDERS: PCP Internal Medicine; Referring Provider Internal Medicine; Visit Provider Internal Medicine
DX: E11.65 Type 2 diabetes mellitus with hyperglycemia (principal); E80.4 Gilbert syndrome; I10 Essential (primary) hypertension; R74.01 Elevation of levels of liver transaminase levels
CPT/HCPCS: 36415; 80053; 83036

== ENCOUNTER 2021-12-19 09:10 | Day surgery (SDC) | payer MEDICARE, OTHER, SELFPAY ==
[2021-12-19 09:44] LABS: COVID19 -Nasal RAPID Negative (Negative)
[2021-12-19 09:45] VITALS: BP 102/61; PULSE 98; RESP 20; TEMP 36.1; O2SAT 97; BMI 49.4
[2021-12-19 10:05] VITALS: BMI 49.4
[2021-12-19] MEDS: LACTATED RINGERS 1,000 ML 150 ML IV (10:07)
[2021-12-19 10:24] VITALS: BP 125/52; PULSE 58; RESP 12; O2SAT 98
--- NOTE | 2021-12-19 10:27 | PM.HP.1 ---
History of Present Illness History of Present Illness Date Patient Seen: 12/19/21 Time Patient Seen: 10:27 Chief complaint: DEC Narrative: The patient presents for colorectal screening. Previous colonoscopy 2013 demonstrated benign polyps. Her father had colon cancer. On further history denies any recent gastrointestinal symptoms. No nausea, vomiting, abdominal pain, loss of appetite, unexplained weight loss, change in bowel habits, diarrhea, constipation, melena, hematochezia, or bright red blood per rectum. Patient History Medical History Arm pain Atrial septal defect Chicken pox Deep vein thrombosis Depression Diabetes type 2, controlled (~2003) Elevated transaminase measurement Essential hypertension Fractures Gilbert's syndrome (~1999) Hearing loss History of adenomatous polyp of colon Measles Mixed hyperlipidemia Obesity, morbid Paroxysmal atrial flutter Rubella (~1967) Uncontrolled type 2 diabetes mellitus with hyperglycemia Ventral hernia Visit for wound care Surgical History Anesthesia H/O cardiac radiofrequency ablation (~04/2019) History of cataract removal with insertion of prosthetic lens (~2017) History of elbow surgery (~1986) Hx of laparoscopic gastric banding (~2009) S/P appy S/P atrial septal defect closure (~1983) S/P cholecystectomy S/P repair of ventral hernia Status post carpal tunnel release of both wrists Family & Social History Family History Father Colon cancer Atrial fibrillation Mother Diabetes mellitus Hypertension Brother Chronic pain Sister Mental health problem Uses wheelchair Grandfather Hypertension Stroke Grandfather Stroke Grandmother Alzheimer's disease Social History: household members none Tobacco & Substance use: Smoking Status Never smoker alcohol intake current alcohol intake frequency holiday/special occasion Substance Use Type does not use Meds Home Medications and Allergies Home Medications Medication Instructions Recorded Confirmed Type ascorbate calcium (vitamin C) 1 cap PO DAILY 03/02/21 11/23/21 History aspirin 81 mg tablet,delayed 81 mg PO DAILY 03/02/21 11/23/21 History release (Adult Low Dose Aspirin) calcium citrate 1,000 mg tablet 1,000 mg PO BID 03/02/21 11/23/21 History cholecalciferol (vitamin D3) 10 10 mcg PO DAILY 03/02/21 11/23/21 History mcg (400 unit) capsule krill oil 1 cap PO DAILY 03/02/21 11/23/21 History multivitamin 1 tab PO DAILY 03/02/21 11/23/21 History vitamin B complex 1 tab PO DAILY 03/02/21 11/23/21 History glimepiride 2 mg tablet 2 mg PO DAILY #90 tabs 03/30/21 11/23/21 Rx lisinopril 10 mg tablet 10 mg PO DAILY #90 tabs 03/30/21 11/23/21 Rx metformin 1,000 mg tablet 1,000 mg PO BID #180 tabs 03/30/21 11/23/21 Rx metoprolol tartrate 50 mg tablet 50 mg PO DAILY #90 tabs 03/30/21 11/23/21 Rx paroxetine HCl 20 mg tablet 20 mg PO DAILY #90 tabs 03/30/21 11/23/21 Rx simvastatin 40 mg tablet 40 mg PO BEDTIME #90 tabs 03/30/21 11/23/21 Rx pioglitazone 15 mg tablet 15 mg PO DAILY #90 tabs 08/15/21 11/23/21 Rx Disabled Parking #1 ea 11/23/21 11/23/21 Rx sodium,potassium,mag sulfates 17.5 See Rx Instructions PO .COMPLEX 12/04/21 Rx gram-3.13 gram-1.6 gram oral soln #354 mL (Suprep Bowel Prep Kit) Allergies Allergy/AdvReac Type Severity Reaction Status Date / Time Penicillins Allergy Intermediate Hives Verified 12/19/21 09:35 morphine AdvReac Intermediate Nausea/Vomi Verified 12/19/21 09:35 ting Exam Vital Signs (past 8 hours): - 12/19/21 09:45 Temperature 97.0 F L Pulse Rate 98 H Respiratory Rate 20 Blood Pressure 102/61 Pulse Oximetry 97 Oxygen Delivery Method Room Air Oxygen Delivery Method Room Air Narrative Exam Narrative: General adult woman alert oriented no acute distress Chest nonlabored respiration Abdomen soft nontender nondistended Objective Labs Labs: Laboratory Results - last 24 hr 12/19/21 09:25 SARS-CoV-2 (PCR) Negative Assessment & Plan Assessment & Plan narrative: The patient requires colorectal screening and colonoscopy is recommended. Technical details were discussed. Risks, benefits, alternatives explained. Risks including but not limited to myocardial infarction, aspiration, bleeding, pain, missed lesion, incomplete examination, need for further radiographic studies, colonic perforation, and need for major abdominal surgery were discussed. All questions were answered to their satisfaction, and they are in agreement with this plan. Time Spent With Patient Critical Care time: I spent a total of [] minutes of critical care time on this patient's care today; this time is exclusive of procedural time.
[2021-12-19] MEDS: MIDAZOLAM 5 MG/5 ML VIAL IV (10:52)
[2021-12-19] MEDS: fentaNYL 100 MCG/2 ML INJ IV (10:54)
--- NOTE | 2021-12-19 11:02 | SUR.OPER ---
EXTERNAL PRERSSURE REQUIRED, TOLERATED PROCEDURE WELL
--- NOTE | 2021-12-19 11:15 | PM.OP.COLON ---
Operative Date/Time/Diagnoses Date of procedure: 12/19/21 Time of procedure: 11:15 Pre-op diagnosis: Family history of colon cancer. Personal history of colonic polyps. Post-op diagnosis: same Procedure & Clinicians Study performed: Colonoscopy Same procedure as scheduled: Yes Indications: Personal history of colonic polyps. Family history of colon cancer. Surgeon: Javy Johnson Procedure Notes Procedure in detail: Medications: Conscious sedation using 5mg IV midazolam and 150mcg IV of fentanyl The history and physical was performed/updated and the patient is ASA class is 3. The procedure was discussed in detail with the patient. Potential risks complications including infection, bleeding, missed diagnosis, perforation, need for surgery, and were explained. Their questions were answered and informed consent was obtained. Patient was brought to the procedure room and placed standard monitoring equipment. The patient's vital signs were monitored continuously throughout the entire procedure. Prior to starting time-out was performed. The patient was placed in the left lateral recumbent position. Procedural sedation was administered. Examination began with a thorough inspection of the perianal area there was no evidence of fissures, fistulae, external hemorrhoids or cutaneous malignancy. The colonoscopy scope was then placed into the anal canal and was advanced to the cecum, which was identified by the ileocecal valve, the appendiceal orifice and the confluence of the taenia. The scope was then slowly withdrawn examining colon thoroughly in all directions, irrigating it of any residual stool. FINDINGS 1. No masses or polyps 2. Tortuous colon 3. Internal hemorrhoids The patient tolerated the procedure well. They will be discharged once criteria are met. The prep was of good/excellent quality. The withdrawl time was 7 minutes. The sedation time was 34 minutes. Specimen(s): none sent Complications: none Impression: Normal colon Post-procedure Plan for aftercare: No further colonoscopy is necessary Disposition: same day surgery
[2021-12-19 11:19] VITALS: BP 126/63; PULSE 60; RESP 13; TEMP 36.2; O2SAT 97
[2021-12-19 11:29] VITALS: BP 108/67; PULSE 62; RESP 14; TEMP 36.2; O2SAT 98
[2021-12-19 11:38] VITALS: BP 101/65; PULSE 63; RESP 16; TEMP 36.2; O2SAT 99
== END 2021-12-19 11:45 | disposition home or self-care (01) ==
PROVIDERS: PCP Internal Medicine; Referring Provider Surgery; Visit Provider Surgery
PROC: 0DJD8ZZ Inspection of Lower Intestinal Tract, Via Natural or Artificial Opening Endoscopic (ICD-10-PCS; CPT 45378; principal; 2021-12-19 10:45)
DX: Z12.11 Encounter for screening for malignant neoplasm of colon (principal); Z80.0 Family history of malignant neoplasm of digestive organs; Z86.010 Personal history of colon polyps; K64.8 Other hemorrhoids
CPT/HCPCS: G0105; 87635; 99152; 99153; C9803; J2250; J3010

== ENCOUNTER → 2022-02-06 13:01 | Outpatient (CLI) | payer MEDICARE, OTHER, SELFPAY | PROVIDERS: PCP Internal Medicine; Referring Provider Internal Medicine; Visit Provider Family Medicine | DX: S31.103A Unspecified open wound of abdominal wall, right lower quadrant without penetration into peritoneal cavity, initial encounter (principal); E11.628 Type 2 diabetes mellitus with other skin complications; Z79.84 Long term (current) use of oral hypoglycemic drugs; E66.01 Morbid (severe) obesity due to excess calories; Z68.43 Body mass index [BMI] 50.0-59.9, adult; M54.16 Radiculopathy, lumbar region; M43.16 Spondylolisthesis, lumbar region; M43.8X6 Other specified deforming dorsopathies, lumbar region; R10.9 Unspecified abdominal pain | CPT/HCPCS: 72110; 87086; 99213; 99214 ==

== ENCOUNTER → 2022-02-06 15:15 | Outpatient (CLI) | payer MEDICARE, OTHER, SELFPAY ==
--- NOTE | 2022-02-06 15:17 | DI.RAD.S_ITS ---
PROCEDURE: XR LUMBAR SPINE MIN 4V INDICATIONS: low back pain w/radiculopathy, fall 10 days ago TECHNIQUE: 5 views of the lumbar spine were acquired, including bilateral oblique views. COMPARISON: [facility], CT, CT ABDOMEN PELVIS WITH CONTRAST, 01/14/2018, 15:18. FINDINGS: Bones: There are 5 [id number] lumbar vertebral bodies. There is grade 1 L1 on L2 retrolisthesis. A compression deformity at is present at L5 with approximately 40% vertebral body height loss. There may be some retropulsion of fracture fragments present. No other compression deformities. There is diffuse intervertebral disc space narrowing, endplate sclerosis, osteophytosis, and facet sclerosis throughout the lumbar spine. Soft tissues: Overlying bowel gas pattern is normal. No suspicious soft tissue calcifications. Oblique images: No pars defects where visualized. Severe facet sclerosis limits evaluation of the L4-5 pars interarticularis. IMPRESSION: 1. L5 compression deformity, the acuity of which is unknown without prior recent comparison studies. Question retropulsed fracture fragments. If the patient endorses acute pain in this region, acute fracture could be suspected. If further characterization is warranted, noncontrast MRI of the lumbar spine could be used. 2. L1-2 retrolisthesis. No spondylolysis where visualized. Dictated by: Cyndi Neil M.D. on 02/06/2022 at 16:04 Approved by: Cyndi Neil M.D. on 02/06/2022 at 16:08
== END ==
PROVIDERS: PCP Internal Medicine; Referring Provider Student in an Organized Health Care Education/Training Program; Visit Provider Student in an Organized Health Care Education/Training Program
DX: M54.16 Radiculopathy, lumbar region (principal); M43.16 Spondylolisthesis, lumbar region; M43.8X6 Other specified deforming dorsopathies, lumbar region
CPT/HCPCS: 72110

== ENCOUNTER → 2022-02-06 15:19 | Outpatient (CLI) | payer MEDICARE, OTHER, SELFPAY | PROVIDERS: PCP Internal Medicine; Visit Provider Student in an Organized Health Care Education/Training Program | DX: R10.9 Unspecified abdominal pain (principal) | CPT/HCPCS: 87086 ==

== ENCOUNTER → 2022-02-20 11:26 | Outpatient (CLI) | payer MEDICARE, OTHER, SELFPAY ==
[2022-02-20 13:24] LABS: Alanine Aminotransferase 26 IU/L (<35); Albumin 3.7 g/dL (3.5-5.0); Albumin Globulin Ratio 1.2 (1.0-2.8); Alkaline Phosphatase 85 U/L (38-126); Aspartate Aminotransferase 38 IU/L (14-36); BUN Creatinine Ratio 22.2 (6-22); Bilirubin Total 1.2 mg/dL (0.2-1.3); Blood Urea Nitrogen 22 mg/dL (7-17); Calcium 9.4 mg/dL (8.4-10.2); Carbon Dioxide 27 mmol/L (22-32); Chloride 105 mmol/L (98-107); Cholesterol 120 mg/dL (140-199); Estimated Glomerular Filt Rate > 60 mL/min (>60); Globulin 3.1 g/dL (1.7-4.1); Glucose 143 mg/dL (80-110); HDL Cholesterol 38 mg/dL (40-60); HEMOLYSIS < 15 (0-50); LDL Cholesterol Calculated 51 mg/dL (<100); Potassium 4.2 mmol/L (3.4-5.1); Sodium 143 mmol/L (137-145); Total Protein 6.8 g/dL (6.3-8.2); Triglycerides 153 mg/dL (35-150)
== END ==
PROVIDERS: PCP Internal Medicine; Referring Provider Internal Medicine; Visit Provider Internal Medicine
DX: E78.2 Mixed hyperlipidemia (principal); E11.65 Type 2 diabetes mellitus with hyperglycemia; I10 Essential (primary) hypertension
CPT/HCPCS: 36415; 80053; 80061

== ENCOUNTER → 2022-02-22 14:53 | Outpatient (CLI) | payer MEDICARE, OTHER, SELFPAY ==
--- NOTE | 2022-02-22 14:55 | DI.RAD.S_ITS ---
PROCEDURE: XR CHEST 2V INDICATIONS: dyspnea TECHNIQUE: 2 views of the chest were acquired. COMPARISON: None. FINDINGS: Surgical changes and devices: Midline sternal wires. Patient's mandible obscures the lung apices. Lungs and pleura: Lungs are clear. No pleural effusions or pneumothorax. Mediastinum: Heart size enlarged. Mild vascular congestion accentuated by low lung volumes. Bones and chest wall: No suspicious bony abnormalities. Soft tissues appear unremarkable. IMPRESSION: Cardiomegaly and mild vascular congestion Approved by: Randy Crockett M.D. on 02/22/2022 at 18:01
[2022-02-22 17:23] LABS: Add Manual Diff / Slide Review NO; Basophils Absolute Auto 0 /uL (0-100); Basophils Percent Auto 0.4 % (0-2); Eosinophils Absolute Auto 100 /uL (0-450); Eosinophils Percent Auto 1.5 % (2-4); Hematocrit 34.1 % (36-46); Hemoglobin 11.2 g/dL (12.0-16.0); Lymphocytes Absolute Auto 1000 /uL (1100-4500); Lymphocytes Percent Auto 19.4 % (25-40); Mean Corpuscular HGB Conc 32.7 % (30-36); Mean Corpuscular Hemoglobin 28.7 PG (26-34); Mean Corpuscular Volume 87.7 fL (80-100); Monocytes Absolute Auto 300 /uL (0-900); Monocytes Percent Auto 6.4 % (3-14); Neutrophils Absolute Auto 3800 /uL (1500-7000); Neutrophils Percent Auto 72.3 % (50-75); Platelet Count 140 X10^3/uL (150-400); Red Blood Cell Count 3.89 X10^6/uL (4.0-5.2); Red Cell Distribution Width 15.5 % (11.6-14.8); White Blood Cell Count 5.2 X10^3/uL (4.5-11.0)
[2022-02-22 17:31] LABS: Hemoglobin A1C% w Est Avg Glu 7.1 % (4.0-6.0)
[2022-02-22 17:56] LABS: NT-proBNP (BNP-Adult 18+) 988 pg/mL (<125)
== END ==
PROVIDERS: PCP Internal Medicine; Referring Provider Internal Medicine; Visit Provider Internal Medicine
DX: E11.65 Type 2 diabetes mellitus with hyperglycemia (principal); I50.9 Heart failure, unspecified; R06.00 Dyspnea, unspecified; I51.7 Cardiomegaly
CPT/HCPCS: 36415; 71046; 83036; 83880; 85025

== ENCOUNTER → 2022-02-26 12:39 | Outpatient (CLI) | payer MEDICARE, OTHER, SELFPAY ==
--- NOTE | 2022-02-26 12:40 | DI.ECHO.S_ITS ---
[facility] +---------+ : : [address] : [place] : : : : [id number] : : : : Phone: [phone]+ Echocardiogram Report + + :Name: JONELLE HAMPTON Study Date: 02/26/2022 Height: 62 in : :[facility] ReadingLocation: Weight: 275 lb : : Gender: Female BSA: 2.2 m2 : :: 1950 Age: 71 yrs BP: 168/82 mmHg: :Reason For Study: Dyspnea : :Ordering Physician: NITZA, : :ADRIANNA An Performed By: Mo Matos : :Referring: ADRIANNA GODDARD : + + Interpretation Summary The ejection fraction is estimated to be 55-60%. The left atrium is severely dilated. The right atrium is moderate to severely dilated. There is mild tricuspid regurgitation. The right ventricular systolic pressure is estimated to be at least 78 mmHg based on an estimated right atrial pressure of 8 mm Hg. The right ventricle is grossly normal size. There is severe pulmonary hypertension. Procedure: A two-dimensional transthoracic echocardiogram with color flow and Doppler was performed. The study quality was technically difficult. There is no prior echocardiogram noted for this patient. Left Ventricle: The left ventricle is normal in size and wall thickness. The left ventricle is not well visualized. Left ventricular systolic function is normal. The ejection fraction is estimated to be 55-60%. There are no focal wall motion abnormalities. Diastolic parameters suggest a pseudonormalization pattern, consistent with probable elevated filling pressures. Right Ventricle: The right ventricle is not well visualized. The right ventricle is grossly normal size. Atria: The left atrium is severely dilated. The right atrium is moderate to severely dilated. The interatrial septum grossly appears intact with no obvious evidence for an atrial septal defect. Mitral Valve: The mitral valve is grossly normal. There is trace mitral regurgitation. Aortic Valve: The aortic valve is normal in structure and function. No aortic regurgitation is present. Tricuspid Valve: The tricuspid valve is normal in structure and function. There is mild tricuspid regurgitation. The right ventricular systolic pressure is estimated to be at least 78 mmHg based on an estimated right atrial pressure of 8 mm Hg. There is severe pulmonary hypertension. Pulmonic Valve: The pulmonic valve is normal in structure and function. There is no pulmonic valvular regurgitation. Great Vessels: The aortic root is normal size. The dimensions of the ascending aorta are normal. The IVC is dilated (diameter is greater than 2.1 cm) yet it collapses greater than 50% with a sniff. This suggests a right atrial pressure of 8 mm Hg. Pericardium/ Pleura There is no pericardial effusion. There is no pleural effusion. MMode/2D Measurements & Calculations LVIDd: 5.4 cm LVOT diam: 2.1 cm LVIDs: 3.8 cm Ao root diam: 3.1 cm FS: 29.6 % asc Aorta Diam: 3.3 cm IVSd: 1.0 cm LVPWd: 1.0 cm LV batres. diameter/BSA (cm/m^2): 2.5 LV sys. diameter/BSA (cm/m^2): 1.7 LA dimension: 4.3 cm RA long axis: 5.8 cm LA A2 area: 31.3 cm2 IVC diam: 2.6 cm LA A4 area: 27.9 cm2 LA length (vol): 6.3 cm LA vol: 117.5 ml LA vol index: 53.7 ml/m2 Doppler Measurements & Calculations Ao V2 max: 138.0 cm/sec LVOT Max Warren: 112.0 cm/sec Ao V2 mean: 90.6 cm/sec LV V1 max P.0 mmHg Ao max P.0 mmHg LV V1 VTI: 25.5 cm Ao mean P.0 mmHg CHIP(I,D): 2.9 cm2 Ao V2 VTI: 30.0 cm CHIP(V,D): 2.8 cm2 sev ratio: 0.85 CHIP indexed to BSA (cm^2/m^2): 1.3 MV E max warren: 132.0 cm/sec TR max warren: 417.0 cm/sec MV A max warren: 71.3 cm/sec TR max P.6 mmHg MV E/A: 1.9 Med Peak E' Warren: 6.0 cm/sec E/E' med: 22.0 Lat Peak E' Warren: 6.9 cm/sec E/E' lat: 19.2 E/e' average: 20.6 MV dec time: 0.22 sec SV(LVOT): 88.3 ml AV VR_phl: 0.81 CHIP(VTI)/BSA_phl: 1.3 MV P1/2t-pr_phl: 65.0 msec Reading Physician:03:47 PM
== END ==
PROVIDERS: PCP Internal Medicine; Referring Provider Internal Medicine; Visit Provider Internal Medicine
DX: R06.00 Dyspnea, unspecified (principal); I07.1 Rheumatic tricuspid insufficiency
CPT/HCPCS: 93306

== ENCOUNTER 2022-03-06 14:01 | Observation (INO) | payer MEDICARE, OTHER, SELFPAY ==
[2022-03-06] VITALS (26 sets, daily range): BP systolic 145–194; BP diastolic 63–81; PULSE 53–77; RESP 16–41; TEMP 36.6–37.1; O2SAT 89–97; BMI 48.6
--- NOTE | 2022-03-06 14:13 | DI.RAD.S_ITS ---
PROCEDURE: XR CHEST 1V INDICATIONS: Shortness of breath TECHNIQUE: One view of the chest was acquired. COMPARISON: [facility], CR, XR CHEST 2V, 02/22/2022, 15:16. FINDINGS: Surgical changes and devices: Sternal wires. Lungs and pleura: Patchy bibasilar opacities are present including minimal effusions. Overall appearance is similar versus minimally improved compared to prior exam. Mediastinum: Mediastinal contours appear normal. Heart size is normal. Bones and chest wall: No suspicious bony lesions. Overlying soft tissues appear unremarkable. IMPRESSION: Persistent appearance of effusions and bilateral opacities suggestive of pneumonia. Dictated by: Daisha Schultz M.D. on 03/06/2022 at 14:58 Approved by: Daisha Schultz M.D. on 03/06/2022 at 15:07
[2022-03-06 14:55] LABS: Add Manual Diff / Slide Review NO; Basophils Absolute Auto 0 /uL (0-100); Basophils Percent Auto 0.5 % (0-2); Eosinophils Absolute Auto 100 /uL (0-450); Eosinophils Percent Auto 1.7 % (2-4); Hematocrit 33.5 % (36-46); Hemoglobin 11.2 g/dL (12.0-16.0); Lymphocytes Absolute Auto 900 /uL (1100-4500); Lymphocytes Percent Auto 17.7 % (25-40); Mean Corpuscular HGB Conc 33.6 % (30-36); Mean Corpuscular Hemoglobin 28.9 PG (26-34); Mean Corpuscular Volume 85.9 fL (80-100); Monocytes Absolute Auto 400 /uL (0-900); Monocytes Percent Auto 7.2 % (3-14); Neutrophils Absolute Auto 3700 /uL (1500-7000); Neutrophils Percent Auto 72.9 % (50-75); Platelet Count 145 X10^3/uL (150-400); Red Blood Cell Count 3.89 X10^6/uL (4.0-5.2); Red Cell Distribution Width 15.5 % (11.6-14.8); White Blood Cell Count 5.1 X10^3/uL (4.5-11.0)
[2022-03-06 15:02] LABS: INR 1.2 (0.9-1.3); Prothrombin Time 13.4 SECONDS (10.1-12.7)
[2022-03-06 15:07] LABS: Alanine Aminotransferase 24 IU/L (<35); Albumin 3.7 g/dL (3.5-5.0); Albumin Globulin Ratio 1.2 (1.0-2.8); Alkaline Phosphatase 64 U/L (38-126); Aspartate Aminotransferase 31 IU/L (14-36); BUN Creatinine Ratio 18.6 (6-22); Bilirubin Total 1.6 mg/dL (0.2-1.3); Blood Urea Nitrogen 16 mg/dL (7-17); Calcium 8.9 mg/dL (8.4-10.2); Carbon Dioxide 30 mmol/L (22-32); Chloride 103 mmol/L (98-107); Estimated Glomerular Filt Rate > 60 mL/min (>60); Globulin 3.1 g/dL (1.7-4.1); Glucose 133 mg/dL (80-110); HEMOLYSIS < 15 (0-50); Potassium 3.9 mmol/L (3.4-5.1); Sodium 142 mmol/L (137-145); Total Protein 6.8 g/dL (6.3-8.2)
[2022-03-06 15:20] LABS: NT-proBNP (BNP-Adult 18+) 1030 pg/mL (<125); Troponin I < 0.012 ng/mL (0.01-0.034)
--- NOTE | 2022-03-06 15:26 | ED.SOB ---
HPI - SOB/Dyspnea <Jovana Chery PA-C - Last Filed: 03/06/22 20:01> General Chief Complaint: Shortness of Breath/Dyspnea Stated Complaint: SOB several weeks Time Seen by Provider: 03/06/22 14:12 Source: patient Mode of arrival: Wheelchair History of Present Illness HPI Narrative: 71-year-old female with past medical history type 2 diabetes, essential hypertension, mixed hyperlipidemia, obesity, paroxysmal a flutter, history of ASD, pulmonary hypertension presents to the ED with 4 weeks of worsening shortness of breath. Patient states that her shortness of breath is much worse on even minimal exertion such as walking from her bed to the bathroom and back. Patient endorses some leg swelling, left greater than right. Patient denies fever, chills, rhinorrhea, sore throat, chest pain, nausea, vomiting, dysuria, abdominal pain, diarrhea, constipation. Patient has a chronic wound on her right lower abdomen for 2 years for which she sees wound care routinely. Patient denies that the wound is looking any worse and endorses that it is not painful. Patient saw Dr. Bucio who is her PCP on 02/22/2022 for the same chief complaint, he did a chest x-ray and an echocardiogram. Echocardiogram shows good ejection fraction but severe pulmonary hypertension. Patient states that she was supposed to have a pulmonary function test done as next steps, however is unsure how that is going to be arranged. Patient has not seen a trial consultant yet, expresses interest in consulting a trial consultant. Patient had a repair for ASD about 40 years ago, has had pulmonary hypertension due to it. Related Data Home Medications Medication Instructions Recorded Confirmed ascorbate calcium (vitamin C) 1 cap PO DAILY 03/02/21 02/22/22 aspirin 81 mg tablet,delayed 81 mg PO DAILY 03/02/21 03/07/22 release (Adult Low Dose Aspirin) calcium citrate 1,000 mg tablet 1,000 mg PO BID 03/02/21 02/22/22 cholecalciferol (vitamin D3) 10 10 mcg PO DAILY 03/02/21 02/22/22 mcg (400 unit) capsule krill oil 1 cap PO DAILY 03/02/21 02/22/22 multivitamin 1 tab PO DAILY 03/02/21 02/22/22 vitamin B complex 1 tab PO DAILY 03/02/21 02/22/22 Previous Rx's Medication Instructions Recorded glimepiride 2 mg tablet 2 mg PO DAILY #90 tabs 03/30/21 lisinopril 10 mg tablet 10 mg PO DAILY #90 tabs 03/30/21 metformin 1,000 mg tablet 1,000 mg PO BID #180 tabs 03/30/21 metoprolol tartrate 50 mg tablet 50 mg PO DAILY #90 tabs 03/30/21 paroxetine HCl 20 mg tablet 20 mg PO DAILY #90 tabs 03/30/21 simvastatin 40 mg tablet 40 mg PO BEDTIME #90 tabs 03/30/21 pioglitazone 15 mg tablet 15 mg PO DAILY #90 tabs 08/15/21 Disabled Parking #1 ea 12/28/21 lidocaine 5 % topical patch 1 patch topical DAILY 15 days #15 02/06/22 ea Allergies Allergy/AdvReac Type Severity Reaction Status Date / Time Penicillins Allergy Intermediate Hives Verified 02/22/22 14:31 morphine AdvReac Intermediate Nausea/Vomi Verified 02/22/22 14:31 ting Review of Systems <Jovana Chery PA-C - Last Filed: 03/06/22 20:01> Review of Systems ROS Unobtainable: All systems reviewed & are unremarkable except as noted in HPI and below Constitutional Constitutional: Denies chills, Reports fatigue, Denies fever(s), Denies frequent falls, Denies lethargy and Denies weakness Eyes Eyes: Denies change in vision, Denies eye discharge, Denies irritation and Denies loss of vision ENT Ears, Nose, Mouth, and Throat: Denies change in voice, Denies dizziness, Denies neck pain, Denies sore throat and Denies throat swelling Cardiovascular Cardiovascular: Denies chest pain, Denies irregular heart rhythm, Reports leg edema, Denies lightheadedness, Denies palpitations, Reports dyspnea, Reports dyspnea on exertion and Denies orthopnea Respiratory Respiratory: Denies cough, Reports dyspnea, Reports dyspnea on exertion and Denies wheezing Gastrointestinal Gastrointestinal: Denies abdominal pain, Denies change in bowel habits, Denies diarrhea, Denies nausea and Denies vomiting Genitourinary Genitourinary: Denies hematuria, Denies flank pain, Denies urinary incontinence and Denies urinary urgency Musculoskeletal Musculoskeletal: Denies back pain, Denies muscle weakness, Denies neck pain, Denies numbness and Denies tingling Integumentary/Breasts Skin/Breast: Denies pruritus, Denies erythema, Denies rash and Denies wounds Neurologic Neurologic: Denies behavioral changes, Denies confusion, Denies dizziness, Denies frequent falls, Denies loss of vision, Denies numbness, Denies tingling and Denies weakness Psychiatric Psychiatric: Denies anxiety, Denies behavioral changes, Denies confusion, Denies depression, Denies homicidal ideation and Denies suicidal ideation Endocrine Endocrine: Reports fatigue, Denies flushing and Denies palpitations Hematologic/Lymphatic Hematologic/Lymphatic: Denies easy bruising Allergic/Immunologic Allergic/Immunologic: Denies urticaria, Denies throat swelling and Denies wheezing Patient History <Jovana Chery PA-C - Last Filed: 03/06/22 20:01> Medical History Arm pain Atrial septal defect Chicken pox Deep vein thrombosis Depression Diabetes type 2, controlled (~2003) Elevated transaminase measurement Essential hypertension Fractures Gilbert's syndrome (~1999) Hearing loss History of adenomatous polyp of colon Measles Mixed hyperlipidemia Obesity, morbid Paroxysmal atrial flutter Rubella (~1967) Uncontrolled type 2 diabetes mellitus with hyperglycemia Ventral hernia Visit for wound care Surgical History Anesthesia H/O cardiac radiofrequency ablation (~04/2019) History of cataract removal with insertion of prosthetic lens (~2017) History of elbow surgery (~1986) Hx of laparoscopic gastric banding (~2009) S/P appy S/P atrial septal defect closure (~1983) S/P cholecystectomy S/P repair of ventral hernia Status post carpal tunnel release of both wrists Family History Father Colon cancer Atrial fibrillation Mother Diabetes mellitus Hypertension Brother Chronic pain Sister Mental health problem Uses wheelchair Grandfather Hypertension Stroke Grandfather Stroke Grandmother Alzheimer's disease Social History household members: none Smoking Status: Never smoker alcohol intake: current Smoking Status: Never smoker alcohol intake frequency: holidays/special occasions only Substance Use Type: does not use Exam <Jovana Chery PA-C - Last Filed: 03/06/22 20:01> Narrative Exam Narrative: Const General:?cooperative, healthy appearing and comfortable [facility] Head:?normal to inspection Ears:?hearing grossly normal bilaterally Nose:?external nose normal Face and sinus:?normal facial exam and sinuses nontender Mouth:?oral mucosae normal Throat:?posterior oropharynx normal Eyes General:?appearance normal, both eyes and all related structures Neck Neck:?normal visual inspection and no lymphadenopathy noted Resp Effort & Inspection:?normal respiratory effort Auscultation:?clear to auscultation bilaterally Cardio Rate:?regular rate Rhythm:?regular rhythm Bilateral lower leg edema, left greater than right Neuro General:?patient alert, patient awake and patient oriented x3 Initial Vital Signs Initial Vital Signs: Vital Signs Temperature 98.7 F 03/06/22 14:06 Pulse Rate 69 03/06/22 14:06 Respiratory Rate 18 03/06/22 14:06 Blood Pressure 175/70 H 03/06/22 14:06 Pulse Oximetry 95 03/06/22 14:06 Oxygen Delivery Method 03/06/22 14:06 <Kieran Bennett DO - Last Filed: 03/07/22 07:06> Initial Vital Signs Initial Vital Signs: Vital Signs Temperature 98.7 F 03/06/22 14:06 Pulse Rate 69 03/06/22 14:06 Respiratory Rate 18 03/06/22 14:06 Blood Pressure 175/70 H 03/06/22 14:06 Pulse Oximetry 95 03/06/22 14:06 Oxygen Delivery Method 03/06/22 14:06 Course <Jovana Chery PA-C - Last Filed: 03/06/22 20:01> Orders Ordered: ED Orders 03/07/22 05:52 Basic Metabolic Panel Routine Complete Blood Count AUTO DIFF Routine Magnesium Routine NT-proBNP (BNP-Adult 18+) Routine Acetaminophen (Acetaminophen 325 Mg Tablet) 650 mg PO Q6H PRN PRN Reason: Fever/Mild Pain (1-3) Aspirin (Aspirin Ec 81 Mg Tablet) 81 mg PO DAILY [facility] Atorvastatin Calcium (Atorvastatin 20 Mg Tablet) 20 mg PO BEDTIME [facility] Last Admin: 03/07/22 00:01 Dose: 20 mg Documented By: AGW Dextrose (Dextrose 50 % In Water 25 Gm/50 Ml Syringe) 25 gm IV PRN PRN PRN Reason: Hypoglycemia Enoxaparin Sodium (Enoxaparin 40 Mg/0.4 Ml Syringe) 40 mg SUBCUT DAILY [facility] Furosemide (Furosemide 40 Mg/4 Ml Vial) 40 mg IV Q12H [facility] Glimepiride (Glimepiride 2 Mg Tablet) 2 mg PO DAILY [facility] Insulin Human Lispro (Insulin Lispro 100 Unit/Ml 3ml Vial) 0 unit SUBCUT ACHS [facility]; Protocol Last Admin: 03/07/22 00:01 Dose: Not Given Documented By: TODDW Lisinopril (Lisinopril 10 Mg Tablet) 10 mg PO DAILY [facility] Metformin HCl (Metformin Hcl 500 Mg Tablet) 1,000 mg PO BID [facility] Last Admin: 03/07/22 00:01 Dose: 1,000 mg Documented By: SHAKIRA Metoprolol Tartrate (Metoprolol Ir 50 Mg Tablet) 50 mg PO DAILY [facility] Naloxone HCl (Naloxone 0.4 Mg/Ml Vial) 0.2 mg IV Q2MIN PRN PRN Reason: Opiate Reversal Oxycodone HCl (Oxycodone Ir 5 Mg Tablet) 5 mg PO Q3H PRN PRN Reason: Pain, Moderate (4-6) Last Admin: 03/07/22 00:54 Dose: 5 mg Documented By: SHAKIRA Paroxetine HCl (Paroxetine 20 Mg Tablet) 20 mg PO DAILY [facility] Pioglitazone HCl (Pioglitazone 15 Mg Tablet) 15 mg PO DAILY [facility] Discontinued Medications Furosemide (Furosemide 40 Mg/4 Ml Vial) 40 mg IV NOW ONE Stop: 03/06/22 15:53 Last Admin: 03/06/22 16:07 Dose: 40 mg Documented By: NR Vital Signs Vital signs: Vital Signs - 8 hr 03/06/22 14:06 03/06/22 15:02 03/06/22 15:03 Temperature 98.7 F Pulse Rate 69 58 L Respiratory Rate 18 Blood Pressure 175/70 H Pulse Oximetry 95 95 96 Oxygen Delivery Method Room Air 03/06/22 15:03 03/06/22 15:30 03/06/22 15:31 Temperature Pulse Rate 53 L 54 L Respiratory Rate 19 16 Blood Pressure 152/65 H Pulse Oximetry 95 95 Oxygen Delivery Method 03/06/22 15:31 03/06/22 16:00 03/06/22 16:01 Temperature Pulse Rate 56 L Respiratory Rate 21 Blood Pressure 172/71 H 190/81 H Pulse Oximetry 96 Oxygen Delivery Method 03/06/22 16:01 03/06/22 16:30 03/06/22 17:00 Temperature Pulse Rate 55 L 69 58 L Respiratory Rate 19 19 24 Blood Pressure Pulse Oximetry 96 93 97 Oxygen Delivery Method 03/06/22 17:30 03/06/22 18:00 03/06/22 18:18 Temperature Pulse Rate 63 71 58 L Respiratory Rate 23 34 H 29 H Blood Pressure Pulse Oximetry 94 95 95 Oxygen Delivery Method 03/06/22 18:18 03/06/22 18:45 Temperature 97.9 F Pulse Rate Respiratory Rate Blood Pressure 194/77 H Pulse Oximetry Oxygen Delivery Method <Kieran Bennett DO - Last Filed: 03/07/22 07:06> Orders Ordered: ED Orders 03/07/22 05:52 Basic Metabolic Panel Routine Complete Blood Count AUTO DIFF Routine Magnesium Routine NT-proBNP (BNP-Adult 18+) Routine Acetaminophen (Acetaminophen 325 Mg Tablet) 650 mg PO Q6H PRN PRN Reason: Fever/Mild Pain (1-3) Aspirin (Aspirin Ec 81 Mg Tablet) 81 mg PO DAILY [facility] Atorvastatin Calcium (Atorvastatin 20 Mg Tablet) 20 mg PO BEDTIME [facility] Last Admin: 03/07/22 00:01 Dose: 20 mg Documented By: AGW Dextrose (Dextrose 50 % In Water 25 Gm/50 Ml Syringe) 25 gm IV PRN PRN PRN Reason: Hypoglycemia Enoxaparin Sodium (Enoxaparin 40 Mg/0.4 Ml Syringe) 40 mg SUBCUT DAILY [facility] Furosemide (Furosemide 40 Mg/4 Ml Vial) 40 mg IV Q12H [facility] Glimepiride (Glimepiride 2 Mg Tablet) 2 mg PO DAILY [facility] Insulin Human Lispro (Insulin Lispro 100 Unit/Ml 3ml Vial) 0 unit SUBCUT ACHS [facility]; Protocol Last Admin: 03/07/22 00:01 Dose: Not Given Documented By: AGW Lisinopril (Lisinopril 10 Mg Tablet) 10 mg PO DAILY [facility] Metformin HCl (Metformin Hcl 500 Mg Tablet) 1,000 mg PO BID [facility] Last Admin: 03/07/22 00:01 Dose: 1,000 mg Documented By: AGW Metoprolol Tartrate (Metoprolol Ir 50 Mg Tablet) 50 mg PO DAILY [facility] Naloxone HCl (Naloxone 0.4 Mg/Ml Vial) 0.2 mg IV Q2MIN PRN PRN Reason: Opiate Reversal Oxycodone HCl (Oxycodone Ir 5 Mg Tablet) 5 mg PO Q3H PRN PRN Reason: Pain, Moderate (4-6) Last Admin: 03/07/22 00:54 Dose: 5 mg Documented By: AGW Paroxetine HCl (Paroxetine 20 Mg Tablet) 20 mg PO DAILY [facility] Pioglitazone HCl (Pioglitazone 15 Mg Tablet) 15 mg PO DAILY [facility] Discontinued Medications Furosemide (Furosemide 40 Mg/4 Ml Vial) 40 mg IV NOW ONE Stop: 03/06/22 15:53 Last Admin: 03/06/22 16:07 Dose: 40 mg Documented By: NR Vital Signs Vital signs: Vital Signs - 8 hr 03/06/22 14:06 03/06/22 15:02 03/06/22 15:03 Temperature 98.7 F Pulse Rate 69 58 L Respiratory Rate 18 Blood Pressure 175/70 H Pulse Oximetry 95 95 96 Oxygen Delivery Method Room Air 03/06/22 15:03 03/06/22 15:30 03/06/22 15:31 Temperature Pulse Rate 53 L 54 L Respiratory Rate 19 16 Blood Pressure 152/65 H Pulse Oximetry 95 95 Oxygen Delivery Method 03/06/22 15:31 03/06/22 16:00 03/06/22 16:01 Temperature Pulse Rate 56 L Respiratory Rate 21 Blood Pressure 172/71 H 190/81 H Pulse Oximetry 96 Oxygen Delivery Method 03/06/22 16:01 03/06/22 16:30 03/06/22 17:00 Temperature Pulse Rate 55 L 69 58 L Respiratory Rate 19 19 24 Blood Pressure Pulse Oximetry 96 93 97 Oxygen Delivery Method 03/06/22 17:30 03/06/22 18:00 03/06/22 18:18 Temperature Pulse Rate 63 71 58 L Respiratory Rate 23 34 H 29 H Blood Pressure Pulse Oximetry 94 95 95 Oxygen Delivery Method 03/06/22 18:18 03/06/22 18:45 Temperature 97.9 F Pulse Rate Respiratory Rate Blood Pressure 194/77 H Pulse Oximetry Oxygen Delivery Method MDM - SOB/Dyspnea <Jovana Chery PA-C - Last Filed: 03/06/22 20:01> Lab Data Result diagrams: 03/07/22 05:52 03/07/22 05:52 Labs: Lab Results 03/06/22 03/06/22 03/06/22 Range/Units 14:46 14:46 14:46 WBC 5.1 (4.5-11.0) X10^3/uL RBC 3.89 L (4.0-5.2) X10^6/uL Hgb 11.2 L (12.0-16.0) g/dL Hct 33.5 L (36-46) % MCV 85.9 (80-100) fL MCH 28.9 (26-34) PG MCHC 33.6 (30-36) % RDW 15.5 H (11.6-14.8) % Plt Count 145 L (150-400) X10^3/uL Neut % (Auto) 72.9 (50-75) % Lymph % (Auto) 17.7 L (25-40) % [place] % (Auto) 7.2 (3-14) % Eos % (Auto) 1.7 L (2-4) % Baso % (Auto) 0.5 (0-2) % Neut # (Auto) 3700 (0880-9806) /uL Lymph # (Auto) 900 L (3491-0686) /uL [place] # (Auto) 400 (0-900) /uL Eos # (Auto) 100 (0-450) /uL Baso # (Auto) 0 (0-100) /uL PT 13.4 H (10.1-12.7) SECONDS INR 1.2 (0.9-1.3) D-Dimer (<500) ng/ml Sodium 142 (137-145) mmol/L Potassium 3.9 (3.4-5.1) mmol/L Chloride 103 (98-107) mmol/L Carbon Dioxide 30 (22-32) mmol/L BUN 16 (7-17) mg/dL Creatinine 0.86 (0.52-1.04) mg/dL Estimated GFR > 60 (>60) mL/min BUN/Creatinine Ratio 18.6 (6-22) Glucose 133 H (80-110) mg/dL Lactate (0.7-2.1) mmol/L Calcium 8.9 (8.4-10.2) mg/dL Total Bilirubin 1.6 H (0.2-1.3) mg/dL AST 31 (14-36) IU/L ALT 24 (<35) IU/L Alkaline Phosphatase 64 (38-126) U/L Troponin I < 0.012 (0.01-0.034) ng/mL NT-Pro-B Natriuret Pep 1030 H (<125) pg/mL Total Protein 6.8 (6.3-8.2) g/dL Albumin 3.7 (3.5-5.0) g/dL Globulin 3.1 (1.7-4.1) g/dL Albumin/Globulin Ratio 1.2 (1.0-2.8) Chlamy pneumoniae PCR (Not Detect) Adenovirus (PCR) (Not Detect) B. pertussis DNA (PCR) (Not Detecte) B.parapertussis DNA PCR (Not Detecte) Coronavirus OC43 (PCR) (Not Detect) Coronavirus HKU1 (PCR) (Not Detect) Coronavirus 229E (PCR) (Not Detect) SARS-CoV-2 (PCR) (Negative) Coronavirus NL63 (PCR) (Not Detect) Human Metapneumovir PCR (Not Detect) Influenza Type A (PCR) (Not Detect) Influenza Type B (PCR) (Not Detect) M. pneumoniae (PCR) (Not Detect) Parainfluenza 1 (PCR) (Not Detect) Parainfluenza 2 (PCR) (Not Detect) Parainfluenza 3 (PCR) (Not Detect) Parainfluenza 4 (PCR) (Not Detect) RSV (PCR) (Not Detect) Entero/Rhino (PCR) (Not Detect) 03/06/22 03/06/22 03/06/22 Range/Units 14:46 14:46 15:03 WBC (4.5-11.0) X10^3/uL RBC (4.0-5.2) X10^6/uL Hgb (12.0-16.0) g/dL Hct (36-46) % MCV (80-100) fL MCH (26-34) PG MCHC (30-36) % RDW (11.6-14.8) % Plt Count (150-400) X10^3/uL Neut % (Auto) (50-75) % Lymph % (Auto) (25-40) % [place] % (Auto) (3-14) % Eos % (Auto) (2-4) % Baso % (Auto) (0-2) % Neut # (Auto) (6520-3926) /uL Lymph # (Auto) (0193-2300) /uL [place] # (Auto) (0-900) /uL Eos # (Auto) (0-450) /uL Baso # (Auto) (0-100) /uL PT (10.1-12.7) SECONDS INR (0.9-1.3) D-Dimer 1672 H (<500) ng/ml Sodium (137-145) mmol/L Potassium (3.4-5.1) mmol/L Chloride (98-107) mmol/L Carbon Dioxide (22-32) mmol/L BUN (7-17) mg/dL Creatinine (0.52-1.04) mg/dL Estimated GFR (>60) mL/min BUN/Creatinine Ratio (6-22) Glucose (80-110) mg/dL Lactate 2.0 (0.7-2.1) mmol/L Calcium (8.4-10.2) mg/dL Total Bilirubin (0.2-1.3) mg/dL AST (14-36) IU/L ALT (<35) IU/L Alkaline Phosphatase (38-126) U/L Troponin I (0.01-0.034) ng/mL NT-Pro-B Natriuret Pep (<125) pg/mL Total Protein (6.3-8.2) g/dL Albumin (3.5-5.0) g/dL Globulin (1.7-4.1) g/dL Albumin/Globulin Ratio (1.0-2.8) Chlamy pneumoniae PCR (Not Detect) Adenovirus (PCR) (Not Detect) B. pertussis DNA (PCR) (Not Detecte) B.parapertussis DNA PCR (Not Detecte) Coronavirus OC43 (PCR) (Not Detect) Coronavirus HKU1 (PCR) (Not Detect) Coronavirus 229E (PCR) (Not Detect) SARS-CoV-2 (PCR) Negative (Negative) Coronavirus NL63 (PCR) (Not Detect) Human Metapneumovir PCR (Not Detect) Influenza Type A (PCR) (Not Detect) Influenza Type B (PCR) (Not Detect) M. pneumoniae (PCR) (Not Detect) Parainfluenza 1 (PCR) (Not Detect) Parainfluenza 2 (PCR) (Not Detect) Parainfluenza 3 (PCR) (Not Detect) Parainfluenza 4 (PCR) (Not Detect) RSV (PCR) (Not Detect) Entero/Rhino (PCR) (Not Detect) 03/06/22 Range/Units 18:20 WBC (4.5-11.0) X10^3/uL RBC (4.0-5.2) X10^6/uL Hgb (12.0-16.0) g/dL Hct (36-46) % MCV (80-100) fL MCH (26-34) PG MCHC (30-36) % RDW (11.6-14.8) % Plt Count (150-400) X10^3/uL Neut % (Auto) (50-75) % Lymph % (Auto) (25-40) % [place] % (Auto) (3-14) % Eos % (Auto) (2-4) % Baso % (Auto) (0-2) % Neut # (Auto) (0153-2329) /uL Lymph # (Auto) (2159-6766) /uL [place] # (Auto) (0-900) /uL Eos # (Auto) (0-450) /uL Baso # (Auto) (0-100) /uL PT (10.1-12.7) SECONDS INR (0.9-1.3) D-Dimer (<500) ng/ml Sodium (137-145) mmol/L Potassium (3.4-5.1) mmol/L Chloride (98-107) mmol/L Carbon Dioxide (22-32) mmol/L BUN (7-17) mg/dL Creatinine (0.52-1.04) mg/dL Estimated GFR (>60) mL/min BUN/Creatinine Ratio (6-22) Glucose (80-110) mg/dL Lactate (0.7-2.1) mmol/L Calcium (8.4-10.2) mg/dL Total Bilirubin (0.2-1.3) mg/dL AST (14-36) IU/L ALT (<35) IU/L Alkaline Phosphatase (38-126) U/L Troponin I (0.01-0.034) ng/mL NT-Pro-B Natriuret Pep (<125) pg/mL Total Protein (6.3-8.2) g/dL Albumin (3.5-5.0) g/dL Globulin (1.7-4.1) g/dL Albumin/Globulin Ratio (1.0-2.8) Chlamy pneumoniae PCR Not detected (Not Detect) Adenovirus (PCR) Not detected (Not Detect) B. pertussis DNA (PCR) Not detected (Not Detecte) B.parapertussis DNA PCR Not detected (Not Detecte) Coronavirus OC43 (PCR) Not detected (Not Detect) Coronavirus HKU1 (PCR) Not detected (Not Detect) Coronavirus 229E (PCR) Not detected (Not Detect) SARS-CoV-2 (PCR) Not detected (Negative) Coronavirus NL63 (PCR) Not detected (Not Detect) Human Metapneumovir PCR Not detected (Not Detect) Influenza Type A (PCR) Not detected (Not Detect) Influenza Type B (PCR) Not detected (Not Detect) M. pneumoniae (PCR) Not detected (Not Detect) Parainfluenza 1 (PCR) Not detected (Not Detect) Parainfluenza 2 (PCR) Not detected (Not Detect) Parainfluenza 3 (PCR) Not detected (Not Detect) Parainfluenza 4 (PCR) Not detected (Not Detect) RSV (PCR) Not detected (Not Detect) Entero/Rhino (PCR) Not detected (Not Detect) Imaging Data Chest x-ray: Radiologist's Impression: PROCEDURE:? XR CHEST 1V ? INDICATIONS:? Shortness of breath ? TECHNIQUE:? One view of the chest was acquired.? ? COMPARISON:? [facility], , XR CHEST 2V, 02/22/2022, 15:16. ? FINDINGS:? ? Surgical changes and devices:? Sternal wires. ? Lungs and pleura:? Patchy bibasilar opacities are present including minimal effusions.? Overall appearance is similar versus minimally improved compared to prior exam. ? Mediastinum:? Mediastinal contours appear normal.? Heart size is normal.? ? Bones and chest wall:? No suspicious bony lesions.? Overlying soft tissues appear unremarkable.? ? IMPRESSION:? Persistent appearance of effusions and bilateral opacities suggestive of pneumonia. ? ? Dictated by: Daisha Schultz M.D. on 03/06/2022 at 14:58 ? ? Approved by: Daisha Schultz M.D. on 03/06/2022 at 15:07 ? CT scan - chest: Radiologist's Impression: PROCEDURE:? CT ANGIO CHEST PE PROTOCOL ? INDICATIONS:? Short of breath ? TECHNIQUE:? After the administration of intravenous contrast, 2 mm thick sections acquired from the pulmonary apices to the posterior costophrenic angles.? 3-dimensional maximum intensity projection (MIP) coronal and sagittal reformats were then acquired through the thorax.? For radiation dose reduction, the following was used:? automated exposure control, adjustment of mA and/or kV according to patient size.? ? COMPARISON:? [facility], CR, XR CHEST 1V, 03/06/2022, 14:35. ? FINDINGS:? Image quality:? Adequate ? Pulmonary arteries:? no convincing intraluminal filling defects to suggest central pulmonary embolism.? ? Lungs and pleura:? Small-moderate bilateral pleural effusions.? Mild bilateral ground-glass opacities .? Bilateral bandlike opacities which probably represent atelectasis. ? Mediastinum:? abberent right subclavian artery variant anatomy.? Probable multi chamber cardiac enlargement.? No pericardial effusion.? No definite mediastinal adenopathy. ? Bones and chest wall:? Median sternotomy wires. Multilevel degenerative change of the visualized spine. Abdomen:? Gastric lap band.? Prior cholecystectomy.? Left upper kidney cortical cyst without suspicious features identified. ? IMPRESSION:? 1. No pulmonary embolism demonstrated. 2. Small-moderate bilateral pleural effusions.? Bilateral pulmonary opacities also present at least in part likely due to atelectasis, underlying edema or infection are also possible.? ? Dictated by: Miguel Hein M.D. on 03/06/2022 at 17:58 ? ? Approved by: Miguel Hein M.D. on 03/06/2022 at 18:09 ? [facility] Narrative Medical decision making narrative: 71-year-old female with past medical history type 2 diabetes, essential hypertension, mixed hyperlipidemia, obesity, paroxysmal a flutter, history of ASD, pulmonary hypertension presents to the ED with 4 weeks of worsening shortness of breath. Concern for pulmonary congestion from pulmonary hypertension versus ACS versus CHF versus PE versus pneumonia versus other. Will obtain EKG, chest x-ray, labs, troponin, BNP, D-dimer, COVID swab. Will reassess. It is noted that patient was desaturating to the mid-to-high 80s on room air with minimal exertion such as moving from the bed to the commode. Patient is saturating in the mid 90s on room air at rest. NT proBNP was elevated to 1030. 40 mg of Lasix IV given. D-dimer elevated. CT PE was performed which showed no pulmonary embolism with bilateral pleural effusions that could either be due to atelectasis, edema, or infection. Front [employer]er Dr. Wang was consulted, he recommended continued diuresis with Lasix to achieve euvolemia. He recommends outpatient follow-up with pulmonology for the pulmonary hypertension. Dr. Bucio was consulted to admit the patient. Patient was accepted as inpatient for continued diuresis. <Kieran Bennett, DO - Last Filed: 03/07/22 07:06> Lab Data Labs: Lab Results 03/06/22 03/06/22 03/06/22 Range/Units 14:46 14:46 14:46 WBC 5.1 (4.5-11.0) X10^3/uL RBC 3.89 L (4.0-5.2) X10^6/uL Hgb 11.2 L (12.0-16.0) g/dL Hct 33.5 L (36-46) % MCV 85.9 (80-100) fL MCH 28.9 (26-34) PG MCHC 33.6 (30-36) % RDW 15.5 H (11.6-14.8) % Plt Count 145 L (150-400) X10^3/uL Neut % (Auto) 72.9 (50-75) % Lymph % (Auto) 17.7 L (25-40) % [place] % (Auto) 7.2 (3-14) % Eos % (Auto) 1.7 L (2-4) % Baso % (Auto) 0.5 (0-2) % Neut # (Auto) 3700 (6478-0322) /uL Lymph # (Auto) 900 L (1384-2449) /uL [place] # (Auto) 400 (0-900) /uL Eos # (Auto) 100 (0-450) /uL Baso # (Auto) 0 (0-100) /uL PT 13.4 H (10.1-12.7) SECONDS INR 1.2 (0.9-1.3) D-Dimer (<500) ng/ml Sodium 142 (137-145) mmol/L Potassium 3.9 (3.4-5.1) mmol/L Chloride 103 (98-107) mmol/L Carbon Dioxide 30 (22-32) mmol/L BUN 16 (7-17) mg/dL Creatinine 0.86 (0.52-1.04) mg/dL Estimated GFR > 60 (>60) mL/min BUN/Creatinine Ratio 18.6 (6-22) Glucose 133 H (80-110) mg/dL Lactate (0.7-2.1) mmol/L Calcium 8.9 (8.4-10.2) mg/dL Total Bilirubin 1.6 H (0.2-1.3) mg/dL AST 31 (14-36) IU/L ALT 24 (<35) IU/L Alkaline Phosphatase 64 (38-126) U/L Troponin I < 0.012 (0.01-0.034) ng/mL NT-Pro-B Natriuret Pep 1030 H (<125) pg/mL Total Protein 6.8 (6.3-8.2) g/dL Albumin 3.7 (3.5-5.0) g/dL Globulin 3.1 (1.7-4.1) g/dL Albumin/Globulin Ratio 1.2 (1.0-2.8) Chlamy pneumoniae PCR (Not Detect) Adenovirus (PCR) (Not Detect) B. pertussis DNA (PCR) (Not Detecte) B.parapertussis DNA PCR (Not Detecte) Coronavirus OC43 (PCR) (Not Detect) Coronavirus HKU1 (PCR) (Not Detect) Coronavirus 229E (PCR) (Not Detect) SARS-CoV-2 (PCR) (Negative) Coronavirus NL63 (PCR) (Not Detect) Human Metapneumovir PCR (Not Detect) Influenza Type A (PCR) (Not Detect) Influenza Type B (PCR) (Not Detect) M. pneumoniae (PCR) (Not Detect) Parainfluenza 1 (PCR) (Not Detect) Parainfluenza 2 (PCR) (Not Detect) Parainfluenza 3 (PCR) (Not Detect) Parainfluenza 4 (PCR) (Not Detect) RSV (PCR) (Not Detect) Entero/Rhino (PCR) (Not Detect) 03/06/22 03/06/2203/06/22 Range/Units 14:46 14:46 15:03 WBC (4.5-11.0) X10^3/uL RBC (4.0-5.2) X10^6/uL Hgb (12.0-16.0) g/dL Hct (36-46) % MCV (80-100) fL MCH (26-34) PG MCHC (30-36) % RDW (11.6-14.8) % Plt Count (150-400) X10^3/uL Neut % (Auto) (50-75) % Lymph % (Auto) (25-40) % [place] % (Auto) (3-14) % Eos % (Auto) (2-4) % Baso % (Auto) (0-2) % Neut # (Auto) (0536-7258) /uL Lymph # (Auto) (1104-8487) /uL [place] # (Auto) (0-900) /uL Eos # (Auto) (0-450) /uL Baso # (Auto) (0-100) /uL PT (10.1-12.7) SECONDS INR (0.9-1.3) D-Dimer 1672 H (<500) ng/ml Sodium (137-145) mmol/L Potassium (3.4-5.1) mmol/L Chloride (98-107) mmol/L Carbon Dioxide (22-32) mmol/L BUN (7-17) mg/dL Creatinine (0.52-1.04) mg/dL Estimated GFR (>60) mL/min BUN/Creatinine Ratio (6-22) Glucose (80-110) mg/dL Lactate 2.0 (0.7-2.1) mmol/L Calcium (8.4-10.2) mg/dL Total Bilirubin (0.2-1.3) mg/dL AST (14-36) IU/L ALT (<35) IU/L Alkaline Phosphatase (38-126) U/L Troponin I (0.01-0.034) ng/mL NT-Pro-B Natriuret Pep (<125) pg/mL Total Protein (6.3-8.2) g/dL Albumin (3.5-5.0) g/dL Globulin (1.7-4.1) g/dL Albumin/Globulin Ratio (1.0-2.8) Chlamy pneumoniae PCR (Not Detect) Adenovirus (PCR) (Not Detect) B. pertussis DNA (PCR) (Not Detecte) B.parapertussis DNA PCR (Not Detecte) Coronavirus OC43 (PCR) (Not Detect) Coronavirus HKU1 (PCR) (Not Detect) Coronavirus 229E (PCR) (Not Detect) SARS-CoV-2 (PCR) Negative (Negative) Coronavirus NL63 (PCR) (Not Detect) Human Metapneumovir PCR (Not Detect) Influenza Type A (PCR) (Not Detect) Influenza Type B (PCR) (Not Detect) M. pneumoniae (PCR) (Not Detect) Parainfluenza 1 (PCR) (Not Detect) Parainfluenza 2 (PCR) (Not Detect) Parainfluenza 3 (PCR) (Not Detect) Parainfluenza 4 (PCR) (Not Detect) RSV (PCR) (Not Detect) Entero/Rhino (PCR) (Not Detect) 03/06/22 Range/Units 18:20 WBC (4.5-11.0) X10^3/uL RBC (4.0-5.2) X10^6/uL Hgb (12.0-16.0) g/dL Hct (36-46) % MCV (80-100) fL MCH (26-34) PG MCHC (30-36) % RDW (11.6-14.8) % Plt Count (150-400) X10^3/uL Neut % (Auto) (50-75) % Lymph % (Auto) (25-40) % [place] % (Auto) (3-14) % Eos % (Auto) (2-4) % Baso % (Auto) (0-2) % Neut # (Auto) (4108-1827) /uL Lymph # (Auto) (6703-3422) /uL [place] # (Auto) (0-900) /uL Eos # (Auto) (0-450) /uL Baso # (Auto) (0-100) /uL PT (10.1-12.7) SECONDS INR (0.9-1.3) D-Dimer (<500) ng/ml Sodium (137-145) mmol/L Potassium (3.4-5.1) mmol/L Chloride (98-107) mmol/L Carbon Dioxide (22-32) mmol/L BUN (7-17) mg/dL Creatinine (0.52-1.04) mg/dL Estimated GFR (>60) mL/min BUN/Creatinine Ratio (6-22) Glucose (80-110) mg/dL Lactate (0.7-2.1) mmol/L Calcium (8.4-10.2) mg/dL Total Bilirubin (0.2-1.3) mg/dL AST (14-36) IU/L ALT (<35) IU/L Alkaline Phosphatase (38-126) U/L Troponin I (0.01-0.034) ng/mL NT-Pro-B Natriuret Pep (<125) pg/mL Total Protein (6.3-8.2) g/dL Albumin (3.5-5.0) g/dL Globulin (1.7-4.1) g/dL Albumin/Globulin Ratio (1.0-2.8) Chlamy pneumoniae PCR Not detected (Not Detect) Adenovirus (PCR) Not detected (Not Detect) B. pertussis DNA (PCR) Not detected (Not Detecte) B.parapertussis DNA PCR Not detected (Not Detecte) Coronavirus OC43 (PCR) Not detected (Not Detect) Coronavirus HKU1 (PCR) Not detected (Not Detect) Coronavirus 229E (PCR) Not detected (Not Detect) SARS-CoV-2 (PCR) Not detected (Negative) Coronavirus NL63 (PCR) Not detected (Not Detect) Human Metapneumovir PCR Not detected (Not Detect) Influenza Type A (PCR) Not detected (Not Detect) Influenza Type B (PCR) Not detected (Not Detect) M. pneumoniae (PCR) Not detected (Not Detect) Parainfluenza 1 (PCR) Not detected (Not Detect) Parainfluenza 2 (PCR) Not detected (Not Detect) Parainfluenza 3 (PCR) Not detected (Not Detect) Parainfluenza 4 (PCR) Not detected (Not Detect) RSV (PCR) Not detected (Not Detect) Entero/Rhino (PCR) Not detected (Not Detect) Discharge Plan Departure Patient Disposition: Admitted As Inpatient Clinical Impression: Shortness of breath Admit Date/Time: 03/06/22 19:58 Admit Provider: Galo Bucio <Kieran Bennett, DO - Last Filed: 03/07/22 07:06> Cosign ED Attending Cosignature Attestation: Dr Bennett Co-Sign Statement: I was available for consultation during this patient's emergency department visit. This chart is signed by myself for administrative purposes only. I did not have direct contact with this patient during this visit. They were seen independently by the APC.
[2022-03-06 15:45] LABS: COVID19 -Nasal RAPID Negative (Negative)
[2022-03-06] MEDS: FUROSEMIDE 40 MG/4 ML VIAL IV (16:07)
[2022-03-06 16:24] LABS: D Dimer 1672 ng/ml (<500)
--- NOTE | 2022-03-06 16:59 | DI.CT.S_ITS ---
PROCEDURE: CT ANGIO CHEST PE PROTOCOL INDICATIONS: Short of breath TECHNIQUE: After the administration of intravenous contrast, 2 mm thick sections acquired from the pulmonary apices to the posterior costophrenic angles. 3-dimensional maximum intensity projection (MIP) coronal and sagittal reformats were then acquired through the thorax. For radiation dose reduction, the following was used: automated exposure control, adjustment of mA and/or kV according to patient size. COMPARISON: [facility], CR, XR CHEST 1V, 03/06/2022, 14:35. FINDINGS: Image quality: Adequate Pulmonary arteries: no convincing intraluminal filling defects to suggest central pulmonary embolism. Lungs and pleura: Small-moderate bilateral pleural effusions. Mild bilateral ground-glass opacities . Bilateral bandlike opacities which probably represent atelectasis. Mediastinum: abberent right subclavian artery variant anatomy. Probable multi chamber cardiac enlargement. No pericardial effusion. No definite mediastinal adenopathy. Bones and chest wall: Median sternotomy wires. Multilevel degenerative change of the visualized spine. Abdomen: Gastric lap band. Prior cholecystectomy. Left upper kidney cortical cyst without suspicious features identified. IMPRESSION: 1. No pulmonary embolism demonstrated. 2. Small-moderate bilateral pleural effusions. Bilateral pulmonary opacities also present at least in part likely due to atelectasis, underlying edema or infection are also possible. Dictated by: Miguel Hein M.D. on 03/06/2022 at 17:58 Approved by: Miguel Hein M.D. on 03/06/2022 at 18:09
--- NOTE | 2022-03-06 18:47 | PC.NURSE ---
patient used bedside commode, oxygen saturation drops to 86% with exertion, and returns to mid90s with rest
--- NOTE | 2022-03-06 19:15 | PC.NURSE ---
Report received - assumed care of pt at this time
[2022-03-06 19:25] LABS: Adenovirus Not Detected (Not Detect); B. parapertussis Not Detected (Not Detecte); Bordetella pertussis Not Detected (Not Detecte); Chlamydophila pneumoniae Not Detected (Not Detect); Coronavirus 229E Not Detected (Not Detect); Coronavirus HKU1 Not Detected (Not Detect); Coronavirus NL 63 Not Detected (Not Detect); Coronavirus OC43 Not Detected (Not Detect); Human Metapneumovirus Not Detected (Not Detect); Human Rhinovirus/Enterovirus Not Detected (Not Detect); Influenza A Not Detected (Not Detect); Influenza B Not Detected (Not Detect); Mycoplasma pneumoniae Not Detected (Not Detect); Parainfluenza Virus 1 Not Detected (Not Detect); Parainfluenza Virus 2 Not Detected (Not Detect); Parainfluenza Virus 3 Not Detected (Not Detect); Parainfluenza Virus 4 Not Detected (Not Detect); Respiratory Syncytial Virus Not Detected (Not Detect); SARS- CoV-2 Not Detected (Not Detecte)
--- NOTE | 2022-03-06 20:00 | PC.NURSE ---
resting quietly in NAD - no needs voiced - awaiting admission
--- NOTE | 2022-03-06 20:30 | PC.NURSE ---
No changes in pt status at this time
--- NOTE | 2022-03-06 21:00 | PC.NURSE ---
No changes in pt status
--- NOTE | 2022-03-06 21:45 | PC.NURSE ---
Report called to [facility]
[2022-03-07] MEDS: METFORMIN HCL 500 MG TABLET 1000 MG PO ×3 (00:01→21:03)
[2022-03-07] MEDS: ATORVASTATIN 20 MG TABLET PO (00:01)
[2022-03-07] MEDS: OXYCODONE IR 5 MG TABLET PO ×3 (00:54→21:02)
[2022-03-07 06:46] LABS: Add Manual Diff / Slide Review NO; Basophils Absolute Auto 0 /uL (0-100); Basophils Percent Auto 0.5 % (0-2); Eosinophils Absolute Auto 100 /uL (0-450); Eosinophils Percent Auto 2.1 % (2-4); Hematocrit 33.4 % (36-46); Hemoglobin 11.1 g/dL (12.0-16.0); Lymphocytes Absolute Auto 1500 /uL (1100-4500); Lymphocytes Percent Auto 27.4 % (25-40); Mean Corpuscular HGB Conc 33.2 % (30-36); Mean Corpuscular Hemoglobin 28.5 PG (26-34); Mean Corpuscular Volume 85.7 fL (80-100); Monocytes Absolute Auto 500 /uL (0-900); Monocytes Percent Auto 9.1 % (3-14); Neutrophils Absolute Auto 3300 /uL (1500-7000); Neutrophils Percent Auto 60.9 % (50-75); Platelet Count 138 X10^3/uL (150-400); Red Cell Distribution Width 15.6 % (11.6-14.8); White Blood Cell Count 5.3 X10^3/uL (4.5-11.0)
[2022-03-07 06:54] LABS: BUN Creatinine Ratio 16.9 (6-22); Blood Urea Nitrogen 15 mg/dL (7-17); Calcium 8.9 mg/dL (8.4-10.2); Carbon Dioxide 33 mmol/L (22-32); Chloride 98 mmol/L (98-107); Estimated Glomerular Filt Rate > 60 mL/min (>60); Glucose 115 mg/dL (80-110); HEMOLYSIS < 15 (0-50); Magnesium 1.2 mg/dL (1.6-2.3); Potassium 2.9 mmol/L (3.4-5.1); Sodium 140 mmol/L (137-145)
[2022-03-07 07:00] VITALS: BP 163/65; PULSE 74; RESP 16; TEMP 36.4; O2SAT 96
[2022-03-07 07:00] LABS: NT-proBNP (BNP-Adult 18+) 942 pg/mL (<125)
--- NOTE | 2022-03-07 07:37 | P.HP_ITS ---
History of Present Illness History of Present Illness Date Patient Seen: 03/07/22 Time Patient Seen: 07:37 Chief complaint: SOB several weeks Narrative: 71-year-old female admitted via emergency department with increasing shortness of breath and probable congestive heart failure She was seen by me in the clinic on the 22 of February and at that time complaining only of some mild dyspnea with activity. She had chest x-ray performed which was essentially unremarkable and then echocardiography which showed significant pulmonary hypertension and biatrial enlargement with normal left ventricular function In any event her dyspnea became progressively worse and she finally presented to the Emergency Department on day of admission with orthopnea as well as worsening dyspnea with any exertion whatsoever. She was documenting oxygen desaturations into the low 80s with activity ER evaluation demonstrates bilateral pleural effusions evidence of pulmonary edema and she was admitted for diuresis and therapy given her acute respiratory failure with hypoxia due to her congestive heart failure. The congestive heart failure would be acute on chronic secondary to heart failure with preserved ejection fraction Patient History Medical History Arm pain Atrial septal defect Chicken pox Deep vein thrombosis Depression Diabetes type 2, controlled (~2003) Elevated transaminase measurement Essential hypertension Fractures Gilbert's syndrome (~1999) Hearing loss History of adenomatous polyp of colon Measles Mixed hyperlipidemia Obesity, morbid Paroxysmal atrial flutter Rubella (~1967) Uncontrolled type 2 diabetes mellitus with hyperglycemia Ventral hernia Visit for wound care Surgical History Anesthesia H/O cardiac radiofrequency ablation (~04/2019) History of cataract removal with insertion of prosthetic lens (~2017) History of elbow surgery (~1986) Hx of laparoscopic gastric banding (~2009) S/P appy S/P atrial septal defect closure (~1983) S/P cholecystectomy S/P repair of ventral hernia Status post carpal tunnel release of both wrists Family & Social History Family History Father Colon cancer Atrial fibrillation Mother Diabetes mellitus Hypertension Brother Chronic pain Sister Mental health problem Uses wheelchair Grandfather Hypertension Stroke Grandfather Stroke Grandmother Alzheimer's disease Social History: household members none Prior Living Arrangements House Safety & Behavioral: Feels Safe in Current Yes Environment Been Physically Hurt or No Threatened By a Person Tobacco & Substance use: Smoking Status Never smoker alcohol intake current alcohol intake frequency holiday/special occasion Substance Use Type does not use Meds Home Medications and Allergies Home Medications Medication Instructions Recorded Confirmed Type ascorbate calcium (vitamin C) 1 cap PO DAILY 03/02/21 02/22/22 History aspirin 81 mg tablet,delayed 81 mg PO DAILY 03/02/21 03/07/22 History release (Adult Low Dose Aspirin) calcium citrate 1,000 mg tablet 1,000 mg PO BID 03/02/21 02/22/22 History cholecalciferol (vitamin D3) 10 10 mcg PO DAILY 03/02/21 02/22/22 History mcg (400 unit) capsule krill oil 1 cap PO DAILY 03/02/21 02/22/22 History multivitamin 1 tab PO DAILY 03/02/21 02/22/22 History vitamin B complex 1 tab PO DAILY 03/02/21 02/22/22 History glimepiride 2 mg tablet 2 mg PO DAILY #90 tabs 03/30/21 03/07/22 Rx lisinopril 10 mg tablet 10 mg PO DAILY #90 tabs 03/30/21 03/07/22 Rx metformin 1,000 mg tablet 1,000 mg PO BID #180 tabs 03/30/21 03/07/22 Rx metoprolol tartrate 50 mg tablet 50 mg PO DAILY #90 tabs 03/30/21 02/22/22 Rx paroxetine HCl 20 mg tablet 20 mg PO DAILY #90 tabs 03/30/21 03/07/22 Rx simvastatin 40 mg tablet 40 mg PO BEDTIME #90 tabs 03/30/21 03/07/22 Rx pioglitazone 15 mg tablet 15 mg PO DAILY #90 tabs 08/15/21 03/07/22 Rx Disabled Parking #1 ea 12/28/21 02/22/22 Rx lidocaine 5 % topical patch 1 patch topical DAILY 15 days #15 02/06/22 02/22/22 Rx ea Allergies Allergy/AdvReac Type Severity Reaction Status Date / Time Penicillins Allergy Intermediate Hives Verified 02/22/22 14:31 morphine AdvReac Intermediate Nausea/Vomi Verified 02/22/22 14:31 ting Exam Vital Signs (past 8 hours): Oxygen Delivery Method Room Air Narrative Exam Narrative: Obese elderly female in no obvious distress sitting in a bedside chair in her hospital room HEENT-unremarkable Neck-no bruits Lungs-clear with good breath sounds Heart-regular rate and rhythm Abdomen-obese with wound right lower quadrant covered with gauze and Tegaderm dressing, positive bowel tones soft nontender nondistended [id number]+ pitting edema pretibially bilaterally Neuro-alert orient x3 no focal findings gait not tested Objective Imaging CT scan - chest: Radiologist's impression: PROCEDURE:? CT ANGIO CHEST PE PROTOCOL ? INDICATIONS:? Short of breath ? TECHNIQUE:? After the administration of intravenous contrast, 2 mm thick sections acquired from the pulmonary apices to the posterior costophrenic angles.? 3-dimensional maximum intensity projection (MIP) coronal and sagittal reformats were then acquired through the thorax.? For radiation dose reduction, the following was used:? automated exposure control, adjustment of mA and/or kV according to patient size.? ? COMPARISON:? [facility], CR, XR CHEST 1V, 03/06/2022, 14:35. ? FINDINGS:? Image quality:? Adequate ? Pulmonary arteries:? no convincing intraluminal filling defects to suggest central pulmonary embolism.? ? Lungs and pleura:? Small-moderate bilateral pleural effusions.? Mild bilateral ground-glass opacities .? Bilateral bandlike opacities which probably represent atelectasis. ? Mediastinum:? abberent right subclavian artery variant anatomy.? Probable multi chamber cardiac enlargement.? No pericardial effusion.? No definite mediastinal adenopathy. ? Bones and chest wall:? Median sternotomy wires. Multilevel degenerative change of the visualized spine. Abdomen:? Gastric lap band.? Prior cholecystectomy.? Left upper kidney cortical cyst without suspicious features identified. ? IMPRESSION:? 1. No pulmonary embolism demonstrated. 2. Small-moderate bilateral pleural effusions.? Bilateral pulmonary opacities also present at least in part likely due to atelectasis, underlying edema or infe ction are also possible.? ECHO: Radiologist's impression: Loc: ECHO Accession Number: [id number] ?? Procedure: EC echo doppler complete Ordering Provider: Adrianna Bucio MD ? [facility] +---------+? [facility]? +---------+ : ? :? [address] ? : ? : : ? :? [place], [place] ? : ? : : ? :? [address] ? : ? : : ? : ? Phone: [phone] : ? : [phone]---------[phone]? [phone]? +---------+ ? Echocardiogram Report + + :Name: JONELLE HAMPTON ? Study Date: 02/26/2022 ? Height: 62 in? : :Hospital ? ReadingLocation: ? Weight: 275 lb : : ? Gender: Female ? BSA: 2.2 m2? ? : :: 1950? Age: 71 yrs? BP: 168/82 mmHg: :Reason For Study: Dyspnea? : :Ordering Physician: NITZA,? : :ADRIANNA R ? Performed By: Mo Matos ? : :Referring: ADRIANNA BUCIO? : + + Interpretation Summary The ejection fraction is estimated to be 55-60%. The left atrium is severely dilated. The right atrium is moderate to severely dilated. There is mild tricuspid regurgitation. The right ventricular systolic pressure is estimated to be at least 78 mmHg based on an estimated right atrial pressure of 8 mm Hg. The right ventricle is grossly normal size. There is severe pulmonary hypertension. ? Procedure: ? A two-dimensional transthoracic echocardiogram with color flow and Doppler was performed. The study quality was technically difficult. There is no prior echocardiogram noted for this patient. Left Ventricle: ? The left ventricle is normal in size and wall thickness. The left ventricle is not well visualized. Left ventricular systolic function is normal. The ejection fraction is estimated to be 55-60%. There are no focal wall motion abnormalities. Diastolic parameters suggest a pseudonormalization pattern, consistent with probable elevated filling pressures. Right Ventricle: ? The right ventricle is not well visualized. The right ventricle is grossly normal size. Atria: ? The left atrium is severely dilated. The right atrium is moderate to severely dilated. The interatrial septum grossly appears intact with no obvious evidence for an atrial septal defect. Mitral Valve: ? The mitral valve is grossly normal. There is trace mitral regurgitation. Aortic Valve: ? The aortic valve is normal in structure and function. No aortic regurgitation is present. Tricuspid Valve: ? The tricuspid valve is normal in structure and function. There is mild tricuspid regurgitation. The right ventricular systolic pressure is estimated to be at least 78 mmHg based on an estimated right atrial pressure of 8 mm Hg. There is severe pulmonary hypertension. Pulmonic Valve: ? The pulmonic valve is normal in structure and function. There is no pulmonic valvular regurgitation. Great Vessels: ? The aortic root is normal size. The dimensions of the ascending aorta are normal. The IVC is dilated (diameter is greater than 2.1 cm) yet it collapses greater than 50% with a sniff. This suggests a right atrial pressure of 8 mm Hg. Pericardium/ Pleura ? There is no pericardial effusion. There is no pleural effusion. ? MMode/2D Measurements & Calculations LVIDd: 5.4 cm ? LVOT diam: 2.1 cm LVIDs: 3.8 cm ? Ao root diam: 3.1 cm FS: 29.6 %? asc Aorta Diam: 3.3 cm IVSd: 1.0 cm LVPWd: 1.0 cm LV batres. diameter/BSA (cm/m^2): 2.5 LV sys. diameter/BSA (cm/m^2): 1.7 ? LA dimension: 4.3 cm? RA long axis: 5.8 cm LA A2 area: 31.3 cm2? IVC diam: 2.6 cm LA A4 area: 27.9 cm2 LA length (vol): 6.3 cm LA vol: 117.5 ml LA vol index: 53.7 ml/m2 ? Doppler Measurements & Calculations Ao V2 max: 138.0 cm/sec ? LVOT Max Warren: 112.0 cm/sec Ao V2 mean: 90.6 cm/sec ? LV V1 max P.0 mmHg Ao max P.0 mmHg ? LV V1 VTI: 25.5 cm Ao mean P.0 mmHg? CHIP(I,D): 2.9 cm2 Ao V2 VTI: 30.0 cm? CHIP(V,D): 2.8 cm2 ? sev ratio: 0.85 ? CHIP indexed to BSA (cm^2/m^2): 1.3 ? MV E max warren: 132.0 cm/sec? TR max warren: 417.0 cm/sec MV A max warren: 71.3 cm/sec ? TR max P.6 mmHg MV E/A: 1.9 Med Peak E' Warren: 6.0 cm/sec E/E' med: 22.0 Lat Peak E' Warren: 6.9 cm/sec E/E' lat: 19.2 E/e' average: 20.6 MV dec time: 0.22 sec ? SV(LVOT): 88.3 ml ? AV VR_phl: 0.81 ? CHIP(VTI)/BSA_phl: 1.3 ? MV P1/2t-pr_phl: 65.0 msec ? Labs Result Diagrams: 03/07/22 05:52 03/07/22 05:52 Labs: Laboratory Results - last 24 hr 03/06/22 03/06/22 03/06/22 14:46 14:46 14:46 WBC 5.1 RBC 3.89 L Hgb 11.2 L Hct 33.5 L MCV 85.9 MCH 28.9 MCHC 33.6 RDW 15.5 H Plt Count 145 L Neut % (Auto) 72.9 Lymph % (Auto) 17.7 L Petroleum % (Auto) 7.2 Eos % (Auto) 1.7 L Baso % (Auto) 0.5 Neut # (Auto) 3700 Lymph # (Auto) 900 L Petroleum # (Auto) 400 Eos # (Auto) 100 Baso # (Auto) 0 PT 13.4 H INR 1.2 D-Dimer Sodium 142 Potassium 3.9 Chloride 103 Carbon Dioxide 30 BUN 16 Creatinine 0.86 Estimated GFR > 60 BUN/Creatinine Ratio 18.6 Glucose 133 H Lactate Calcium 8.9 Magnesium Total Bilirubin 1.6 H AST 31 ALT 24 Alkaline Phosphatase 64 Troponin I < 0.012 NT-Pro-B Natriuret Pep 1030 H Total Protein 6.8 Albumin 3.7 Globulin 3.1 Albumin/Globulin Ratio 1.2 Chlamy pneumoniae PCR Adenovirus (PCR) B. pertussis DNA (PCR) B.parapertussis DNA PCR Coronavirus OC43 (PCR) Coronavirus HKU1 (PCR) Coronavirus 229E (PCR) SARS-CoV-2 (PCR) Coronavirus NL63 (PCR) Human Metapneumovir PCR Influenza Type A (PCR) Influenza Type B (PCR) M. pneumoniae (PCR) Parainfluenza 1 (PCR) Parainfluenza 2 (PCR) Parainfluenza 3 (PCR) Parainfluenza 4 (PCR) RSV (PCR) Entero/Rhino (PCR) 03/06/22 03/06/22 03/06/22 14:46 14:46 15:03 WBC RBC Hgb Hct MCV MCH MCHC RDW Plt Count Neut % (Auto) Lymph % (Auto) Petroleum % (Auto) Eos % (Auto) Baso % (Auto) Neut # (Auto) Lymph # (Auto) Petroleum # (Auto) Eos # (Auto) Baso # (Auto) PT INR D-Dimer 1672 H Sodium Potassium Chloride Carbon Dioxide BUN Creatinine Estimated GFR BUN/Creatinine Ratio Glucose Lactate 2.0 Calcium Magnesium Total Bilirubin AST ALT Alkaline Phosphatase Troponin I NT-Pro-B Natriuret Pep Total Protein Albumin Globulin Albumin/Globulin Ratio Chlamy pneumoniae PCR Adenovirus (PCR) B. pertussis DNA (PCR) B.parapertussis DNA PCR Coronavirus OC43 (PCR) Coronavirus HKU1 (PCR) Coronavirus 229E (PCR) SARS-CoV-2 (PCR) Negative Coronavirus NL63 (PCR) Human Metapneumovir PCR Influenza Type A (PCR) Influenza Type B (PCR) M. pneumoniae (PCR) Parainfluenza 1 (PCR) Parainfluenza 2 (PCR) Parainfluenza 3 (PCR) Parainfluenza 4 (PCR) RSV (PCR) Entero/Rhino (PCR) 03/06/22 03/07/22 03/07/22 18:20 05:52 05:52 WBC 5.3 RBC 3.90 L Hgb 11.1 L Hct 33.4 L MCV 85.7 MCH 28.5 MCHC 33.2 RDW 15.6 H Plt Count 138 L Neut % (Auto) 60.9 Lymph % (Auto) 27.4 Petroleum % (Auto) 9.1 Eos % (Auto) 2.1 Baso % (Auto) 0.5 Neut # (Auto) 3300 Lymph # (Auto) 1500 Petroleum # (Auto) 500 Eos # (Auto) 100 Baso # (Auto) 0 PT INR D-Dimer Sodium 140 Potassium 2.9 L Chloride 98 Carbon Dioxide 33 H BUN 15 Creatinine 0.89 Estimated GFR > 60 BUN/Creatinine Ratio 16.9 Glucose 115 H Lactate Calcium 8.9 Magnesium 1.2 L Total Bilirubin AST ALT Alkaline Phosphatase Troponin I NT-Pro-B Natriuret Pep 942 H Total Protein Albumin Globulin Albumin/Globulin Ratio Chlamy pneumoniae PCR Not detected Adenovirus (PCR) Not detected B. pertussis DNA (PCR) Not detected B.parapertussis DNA PCR Not detected Coronavirus OC43 (PCR) Not detected Coronavirus HKU1 (PCR) Not detected Coronavirus 229E (PCR) Not detected SARS-CoV-2 (PCR) Not detected Coronavirus NL63 (PCR) Not detected Human Metapneumovir PCR Not detected Influenza Type A (PCR) Not detected Influenza Type B (PCR) Not detected M. pneumoniae (PCR) Not detected Parainfluenza 1 (PCR) Not detected Parainfluenza 2 (PCR) Not detected Parainfluenza 3 (PCR) Not detected Parainfluenza 4 (PCR) Not detected RSV (PCR) Not detected Entero/Rhino (PCR) Not detected Assessment & Plan Assessment & Plan narrative: 1. Congestive heart failure with preserved ejection fraction-patient quite symptomatic with hypoxia etcetera. I do believe she would benefit from continued diuresis and eventually continued management or evaluation for chronic pulmonary disease etcetera. The most likely etiology for this is her severe pulmonary hypertension. She does have a history of an ASD repair in the 1980s but that should not be the cause of pulmonary hypertension at this point, nor e jayden back then. 2. Pulmonary hypertension-most likely etiology here is either her obesity with a degree of hypoventilation or possibly primary lung disease. This form of pulmonary hypertension is traditionally not very well treated with any available therapies at this time. Oxygen replacement therapy and management of fluid balance is the most important aspects for management of this condition. Given that I believe her etiology is secondary to her obesity and possibly primary lung disease, she maybe a candidate for treatment with something such as sildenafil. PFTs should be performed as well, eventually, to evaluate for underlying lung disease. This was anticipated to be done as an outpatient and we will complete that as an outpatient with probable referral to Pulmonary Medicine as well. She l possibly will require oxygen replacement therapy at home for activity but that is yet to be determined. 3. Biatrial enlargement-not surprising given the degree of pulmonary hypertension. This puts her at high risk of developing atrial based dysrhythmia such as her previously identified paroxysmal atrial flutter as well as atrial fibrillation. Continue monitor for development of this condition 4. Diabetes-patient's numbers have been fairly well controlled with recent A1c of 7.1 on the 22 of February. Continue patient's usual medications and a carb consistent diet during this hospitalization 5. Hypertension-continue patient's usual medications. She is still quite hypertensive and may well benefit from additional aggressive treatment of her hypertension, particular with a calcium channel blair which may provide some benefit for her pulmonary hypertension as well. Patient tells me she has been taking her metoprolol twice a day at home despite the fact I have it listed as once a day. Not sure where the disconnect has occurred she is on the metoprolol tartrate which is best administered more than once a day and so I have corrected that for administration here 6. Morbid obesity-patient's morbid obesity is a contributing factor to pretty much all of the above. This been complicating her ability to ambulate etcetera. Continue to offer nutritional advice regarding weight loss etcetera 7. VTE prophylaxis-Lovenox is been ordered and is appropriate 8. Code status-patient should be a full code in the event of a sudden cardiac or respiratory arrest which is not anticipated at this point. 9. Chronic wound right lower abdomen-continues to be managed by wound care clinic. Did not really examine as above given that she has a fresh bandage on there as she was at Wound Care yesterday before she went to the ER. Apparently not healing well (wound care notes not available in this EMR) and they are considering CT imaging to see if there is some other underlying problem related to her prior abdominal hernia surgeries. 10. Electrolytes-patient already somewhat hypokalemic with single dose of IV Lasix. Will replace with limited amount parenterally and initiate oral potassium replacement. Also hypomagnesemia is present and that will need to be replaced orally as well specially given that we are going to continue with ongoing IV furosemide. Patient deserves inpatient hospitalization given the serious nature of her presentation as above as well as her failure as an outpatient with outpatient management. She would likely be in the hospital greater than 48 hours that will span 2 separate midnights COVID-19 COVID-19 status: Negative Result date/Date tested (Pos, Neg/Pending): 03/06/22 Quality VTE Deep Vein Thrombosis/Pulmonary Embolism Present on Admission: No
[2022-03-07] MEDS: ACETAMINOPHEN 325 MG TABLET 650 MG PO (08:09)
[2022-03-07] MEDS: FUROSEMIDE 40 MG/4 ML VIAL IV ×2 (08:11→17:33)
[2022-03-07 08:24] VITALS: BP 163/65; PULSE 74
[2022-03-07] MEDS: MAGNESIUM OXIDE 400 MG TABLET PO ×2 (08:24→21:03)
[2022-03-07] MEDS: lisinopriL 10 MG TABLET PO (08:24)
[2022-03-07] MEDS: PARoxetine 20 MG TABLET PO (08:24)
[2022-03-07] MEDS: ASPIRIN EC 81 MG TABLET PO (08:24)
[2022-03-07] MEDS: PIOGLITAZONE 15 MG TABLET PO (08:25)
[2022-03-07] MEDS: ENOXAPARIN 40 MG/0.4 ML SYRINGE SUBCUT ×2 (08:25→21:03)
[2022-03-07] MEDS: AMLODIPINE 5 MG TABLET PO (08:25)
[2022-03-07] MEDS: GLIMEPIRIDE 2 MG TABLET PO (08:25)
[2022-03-07] MEDS: METOPROLOL IR 50 MG TABLET PO ×2 (08:26→21:03)
[2022-03-07] MEDS: POTASSIUM CHLORIDE IN WATER 10 MEQ/100 ML PIGGYBACK 100 MEQ IV ×4 (08:27→14:57)
--- NOTE | 2022-03-07 11:07 | PT-IP ANOTE ---
Pt eval received. EMR reviewed and pt independent with mobility with nursing staff. Talked with NAC and nurse and confirmed that pt is independent with mobility and no PT needs at this time. talked with pt and stated that she is feeling better and mobilizing in room and agreed that no PT intervention needed. will d/c PT eval order.
[2022-03-07] MEDS: POTASSIUM CHLORIDE 20 MEQ TAB 40 MEQ PO ×2 (13:00→17:28)
--- NOTE | 2022-03-07 14:02 | CM.DANOTE ---
DCP/Assessment: Reviewed chart. Patient is a 71yr old female admitted to [facility] with SOB. Patient with h/o CHF. PCP is Dr. Bucio. Primary payor is 1)[employer] 2)[employer]. Met with patient this AM explained CM/SW role. Patient reports that she is I with all ADL's. Patient resides alone in [place] Patient reports that her daughter resides in [place] and comes to see her weekly. Patient reports that she has both cane and walker but does not use either. Patient has another daughter in [place]. Patient up in room during visit independently. Patient hopes to d/c home when medically stable. Patient currently OBS status and CM team does not anticipate long hospitalization. Patient denies any d/c planning needs but does request community resources for independent/assisted living in the future. P: Home when medically stable. CM team to follow closely for any d/c planning needs. At this time do not anticipate needs. Community resources provided. KJS Discharge Planning/Care Management Advanced directive, confirm from FAMILY Start: 03/06/22 22:14 Freq: Q24H Status: Active Protocol: Document 03/06/22 22:14 AGW (Rec: 03/07/22 07:40 AGW [id number]) Advance Directive, confirm on record Time 23:30 Person contacted patient Copy received No CM Discharge Assessment Start: 03/07/22 13:54 Freq: Status: Active Protocol: Document 03/07/22 13:55 KJS (Rec: 03/07/22 14:01 KJS [id number]) Discharge Planning Assessment Assigned Shirt Creaser JOSEPH Reardon Contact Information Sandra Kessler Sheila # (daughter) Advance Directives? Yes Advance Directives on File No History Provided By Patient,Medical Record Prior Living Arrangements House Household Members none Type of transporation used prior to Drives own vehicle admit Independent with ADL's Yes Is patient alert and oriented? Yes Caregiver for Another No DME Already Rented / Owned FWW / Walker,Cane Comment Patient reports that she has both cane and walker but does not use either. Barriers to Discharge No Discharge Plan Home Referrals Initiated Other Additional Comment Provided patient with senior resource guide as requested. Whiteboard Updated in Patient Room with Yes name and ext. # of Shirt Creaser Review Status In Process Next Review Type Continued Stay Review
[2022-03-07 18:20] VITALS: BP 136/61; PULSE 63; RESP 20; TEMP 36.2; O2SAT 98
[2022-03-07 19:45] VITALS: O2SAT 96
[2022-03-07 20:00] VITALS: BP 150/70; PULSE 69; RESP 19; TEMP 36.4; O2SAT 96
[2022-03-07] MEDS: SODIUM CHLORIDE 0.9% FLUSH 10 ML IV (21:03)
[2022-03-08] MEDS: OXYCODONE IR 5 MG TABLET PO ×2 (03:17→12:22)
[2022-03-08 07:00] VITALS: BP 153/63; PULSE 63; RESP 17; TEMP 36.6; O2SAT 93; O2SAT 97
[2022-03-08] MEDS: POTASSIUM CHLORIDE 20 MEQ TAB 40 MEQ PO ×2 (08:49→12:19)
[2022-03-08 08:52] VITALS: BP 153/63; PULSE 78
[2022-03-08] MEDS: METFORMIN HCL 500 MG TABLET 1000 MG PO (08:52)
[2022-03-08] MEDS: lisinopriL 10 MG TABLET PO (08:52)
[2022-03-08] MEDS: FUROSEMIDE 40 MG/4 ML VIAL IV (08:52)
[2022-03-08] MEDS: ENOXAPARIN 40 MG/0.4 ML SYRINGE SUBCUT (08:52)
[2022-03-08] MEDS: AMLODIPINE 5 MG TABLET PO (08:58)
[2022-03-08] MEDS: METOPROLOL IR 50 MG TABLET PO (08:58)
[2022-03-08] MEDS: ASPIRIN EC 81 MG TABLET PO (08:58)
[2022-03-08] MEDS: MAGNESIUM OXIDE 400 MG TABLET PO (08:58)
[2022-03-08] MEDS: PIOGLITAZONE 15 MG TABLET PO (08:59)
[2022-03-08] MEDS: SODIUM CHLORIDE 0.9% FLUSH 10 ML IV (08:59)
[2022-03-08] MEDS: GLIMEPIRIDE 2 MG TABLET PO (08:59)
[2022-03-08] MEDS: PARoxetine 20 MG TABLET PO (08:59)
[2022-03-08 09:34] LABS: Blood Urea Nitrogen 18 mg/dL (7-17); Calcium 9.3 mg/dL (8.4-10.2); Carbon Dioxide 34 mmol/L (22-32); Chloride 92 mmol/L (98-107); Estimated Glomerular Filt Rate > 60 mL/min (>60); Glucose 119 mg/dL (80-110); HEMOLYSIS < 15 (0-50); Magnesium 1.3 mg/dL (1.6-2.3); Potassium 3.6 mmol/L (3.4-5.1); Sodium 138 mmol/L (137-145)
--- NOTE | 2022-03-08 10:33 | P.DS_ITS ---
History of Present Illness History of Present Illness Date Patient Seen: 03/08/22 Time Patient Seen: 10:33 Chief complaint: SOB several weeks Narrative: Feeling and breathing much better today up and ambulating to bathroom without oxygen s/p copious diuresis ankles look much better this morninng she is ambulating around unit without desatting i think she is clear to go home. Discharge Providers Provider Date of admission: 03/06/22 19:58 Discharge Date: 03/08/22 Primary care physician: Galo Bucio MD Consults: 03/06/22 21:52 Consult to Physical Therapy Evaluate & Treat Comment: Physician Instructions: Evaluate and Treat Discharge provider: Victor Hugo Cabezas MD Summary Hospital Course Discharge Diagnosis: # acute on chronic congestive heart failure with preserved ejection fraction # acute hypoxic respiratory failure #Pulmonary hypertension in context of obesity hypoventilation. #Biatrial enlargement #Non insulin dependent Diabetes #Hypertension #Morbid obesity #L5 vertebral compression fracture, about six weeks old, s/p ground level fall #Chronic wound right lower abdomen #hypokalemia #hypomagnesemia Hospital Course: Ms. Cutler improved well with IV diuresis and had basically no edema this morning with clear lungs and able to ambulate and maintain her oxygen sats. She feels ready to go home and will f/u with Dr. Bucio next week. Although she lives along she was planning on spending the holidays with her daughter in [place] anyway. Status at Discharge Cognitive/behavioral status at discharge: at baseline, oriented Functional status at discharge: independent ambulation Overall status at discharge: patient is progressing back to baseline Exam Vital Signs (past 8 hours): - 03/08/22 07:00 03/08/22 08:52 Temperature 97.9 F Pulse Rate 63 78 Respiratory Rate 17 Blood Pressure 153/63 H 153/63 H Pulse Oximetry 93 Oxygen Flow Rate 0 Oxygen Delivery Method Room Air Oxygen Flow Rate 0 Narrative Exam Narrative: sitting in bed chatting with staff Const Nutritional Appearance: obese HENMT Head: normocephalic and atraumatic Resp Other: clear to auscultation bilaterally easy work of breathing Cardio Rate: regular rate Rhythm: regular rhythm GI Other: active bowel sounds, wound on RLQ under clean dry dressing Neuro General: patient alert, patient awake, patient oriented x3, moves all extremities and CN's II-XI intact bilaterally Extrem General: full ROM and no pedal edema Psych Mental Status: mental status grossly normal Speech and Movement: speech and movement normal Objective Labs Result Diagrams: 03/07/22 05:52 03/08/22 06:54 Labs: Laboratory Results - last 24 hr 03/08/22 06:54 Sodium 138 Potassium 3.6 Chloride 92 L Carbon Dioxide 34 H BUN 18 H Creatinine 0.90 Estimated GFR > 60 BUN/Creatinine Ratio 20.0 Glucose 119 H Calcium 9.3 Magnesium 1.3 L PFSH Medical History Arm pain Atrial septal defect Chicken pox Deep vein thrombosis Depression Diabetes type 2, controlled (~2003) Elevated transaminase measurement Essential hypertension Fractures Gilbert's syndrome (~1999) Hearing loss History of adenomatous polyp of colon Measles Mixed hyperlipidemia Obesity, morbid Paroxysmal atrial flutter Rubella (~1967) Uncontrolled type 2 diabetes mellitus with hyperglycemia Ventral hernia Visit for wound care Surgical History Anesthesia H/O cardiac radiofrequency ablation (~04/2019) History of cataract removal with insertion of prosthetic lens (~2017) History of elbow surgery (~1986) Hx of laparoscopic gastric banding (~2009) S/P appy S/P atrial septal defect closure (~1983) S/P cholecystectomy S/P repair of ventral hernia Status post carpal tunnel release of both wrists Family History Father Colon cancer Atrial fibrillation Mother Diabetes mellitus Hypertension Brother Chronic pain Sister Mental health problem Uses wheelchair Grandfather Hypertension Stroke Grandfather Stroke Grandmother Alzheimer's disease Social History household members: none Smoking Status: Never smoker alcohol intake: current Discharge Assessment & Plan Assessment and Plan Assessment: # acute on chronic congestive heart failure with preserved ejection fraction # acute hypoxic respiratory failure Much improved today s/p IV diuresis, will need workup for pulmonary hypertension but I do not think she needs discharge diuretics for now #Pulmonary hypertension in context of obesity hypoventilation. This form of pulmonary hypertension is traditionally not very well treated with any available therapies at this time.? Oxygen replacement therapy and management of fluid balance is the most important aspects for management of this condition.? Agree continue outpatient workup and consideration for sildenafil or similar. #Biatrial enlargement increased cardiac risk of arrhythmia, monitor #Non insulin dependent diabetes Patient's numbers have been fairly well controlled with recent A1c of 7.1 on the 22 of February.? Continue patient's usual medications and a carb consistent diet during this hospitalization #Hypertension continue patient's usual medications including twice daily metoprolol tartrate - BP reasonable but not balaji, continue to tweak as outpatient. #Morbid obesity contributing factor to pretty much all of the above, complicating her ability to ambulate etcetera.? Continue to offer nutritional advice regarding weight loss etcetera #L5 vertebral compression fracture, about six weeks old, s/p ground level fall very painful to mobilize still and impacting her ability to move. she has been doing much better with inpatient oxycodone i think a short course of hydrocodone on discharge is reasonable and should not negatively impact her respiration #Chronic wound right lower abdomen Managed by wound care, no signs of infection, clean dry bandage no drainage, she was at Wound Care the day before she went to the ER.? Apparently not healing well (wound care notes not available in this EMR) and they are considering CT imaging to see if there is some other underlying problem related to her prior abdominal hernia surgeries. Continue outpatient f/u. #hypokalemia resolved s/p repletion this morning, resume normal diet #hypomagnesemia improving with repletion, got morning dose today, continue home multivitamin and regular diet, f/u as outpt. dispo: dc home with family DVT ppx: Lovenox code: full MDM: daughter Discharge Plan Discharge Plan Patient Disposition: Home Discharge orders & Medications Prescriptions: New hydrocodone-acetaminophen 5-325 mg tablet 1 tab PO BID PRN (Reason: pain) Qty: 8 0RF Continued lidocaine 5 % adhesive patch,medicated 1 patch topical DAILY 15 Days Qty: 15 1RF Rx Instructions: leave on most painful area for up to 12 hrs glimepiride 2 mg tablet 2 mg PO DAILY Qty: 90 3RF lisinopril 10 mg tablet 10 mg PO DAILY Qty: 90 3RF metformin 1,000 mg tablet 1,000 mg PO BID Qty: 180 3RF metoprolol tartrate 50 mg tablet 50 mg PO DAILY Qty: 90 3RF paroxetine HCl 20 mg tablet 20 mg PO DAILY Qty: 90 3RF simvastatin 40 mg tablet 40 mg PO BEDTIME Qty: 90 3RF pioglitazone 15 mg tablet 15 mg PO DAILY Qty: 90 3RF (DME) Disabled Parking See Rx Instructions .ROUTE .MEDSUPPLY Qty: 1 0RF Rx Instructions: Patient qualifies for disabled parking as per the attached form. calcium citrate 1,000 mg tablet 1,000 mg PO BID multivitamin Tablet 1 tab PO DAILY krill oil 1 cap PO DAILY aspirin [Adult Low Dose Aspirin] 81 mg tablet,delayed release (DR/EC) 81 mg PO DAILY vitamin B complex 1 tab PO DAILY cholecalciferol (vitamin D3) 10 mcg (400 unit) capsule 10 mcg PO DAILY ascorbate calcium (vitamin C) 1 cap PO DAILY Follow up/Referrals: Galo Bucio MD [Primary Care Provider] - Discharge Data Primary Care Provider: Galo Bucio Attending Provider: Victor Hugo Cabezas VTE Deep Vein Thrombosis/Pulmonary Embolism Present on Admission: No
--- NOTE | 2022-03-08 10:39 | CM.DPNOTE ---
DC Note According to Dr Cabezas; Discharge home w/family today, no needs from CM team JW
== END 2022-03-08 14:30 | disposition home or self-care (01) ==
LOC: ED 19:57 → AC 20:05 → ICU 03-07 08:56 → AC 03-07 14:41
PROVIDERS: Admitting Provider Internal Medicine; Emergency Provider Student in an Organized Health Care Education/Training Program; PCP Internal Medicine; Referring Provider Student in an Organized Health Care Education/Training Program; Visit Provider Family Medicine
DX: I11.0 Hypertensive heart disease with heart failure (principal); I50.31 Acute diastolic (congestive) heart failure; J96.01 Acute respiratory failure with hypoxia; I27.20 Pulmonary hypertension, unspecified; E87.6 Hypokalemia; E83.42 Hypomagnesemia; I48.0 Paroxysmal atrial fibrillation; E78.2 Mixed hyperlipidemia; E66.01 Morbid (severe) obesity due to excess calories; E11.9 Type 2 diabetes mellitus without complications; Z79.84 Long term (current) use of oral hypoglycemic drugs; S31.103A Unspecified open wound of abdominal wall, right lower quadrant without penetration into peritoneal cavity, initial encounter; S32.059D Unspecified fracture of fifth lumbar vertebra, subsequent encounter for fracture with routine healing; Z20.822 Contact with and (suspected) exposure to COVID-19; E11.628 Type 2 diabetes mellitus with other skin complications; E66.9 Obesity, unspecified; Z68.43 Body mass index [BMI] 50.0-59.9, adult
CPT/HCPCS: 36415; 71045; 71275; 80048; 80053; 82962; 83605; 83735; 83880; 84484; 85025; 85379; 85610; 87633; 87635; 96365; 96366; 96372; 96375; 96376; 97597; 99212; 99219; 99284; C9803; G0378; J1650; J1940; Q9967

== ENCOUNTER → 2022-03-06 14:15 | Outpatient (CLI) | payer MEDICARE, OTHER, SELFPAY | PROVIDERS: PCP Internal Medicine; Referring Provider Internal Medicine; Visit Provider Surgery | DX: S31.103A Unspecified open wound of abdominal wall, right lower quadrant without penetration into peritoneal cavity, initial encounter (principal); E11.628 Type 2 diabetes mellitus with other skin complications; E66.9 Obesity, unspecified; Z68.43 Body mass index [BMI] 50.0-59.9, adult | CPT/HCPCS: 97597; 99212; 99213 ==

== ENCOUNTER → 2022-03-14 12:53 | Outpatient (CLI) | payer MEDICARE, OTHER, SELFPAY ==
[2022-03-06 21:52] VITALS: BMI 48.6
--- NOTE | 2022-03-14 12:55 | DI.CT.S_ITS ---
PROCEDURE: CT ABDOMEN PELVIS WO CON INDICATIONS: Recurrent incisional hernia TECHNIQUE: Noncontrast 5 mm thick sections acquired from the diaphragms to the symphysis. 5 mm coronal and sagittal reformats were then performed. For radiation dose reduction, the following was used: automated exposure control, adjustment of mA and/or kV according to patient size. COMPARISON: [facility], CT, CT ABDOMEN PELVIS WITH CONTRAST, 01/14/2018, 15:18. [facility], CT, CT ANGIO CHEST PE PROTOCOL, 03/06/2022, 17:20. FINDINGS: Image quality: Excellent. ABDOMEN: Lung bases: Recent previous moderate bilateral pleural effusions have resolved. Mild cardiomegaly. Solid organs: Liver is normal in size. Gallbladder is surgically absent. Pancreas is normal in contours. Spleen is normal in size. No adrenal nodules. Kidneys are normal in size, without hydronephrosis or nephrolithiasis. Peritoneum and bowel: Unenhanced bowel loops demonstrate normal wall thickness and caliber. No free fluid or air. Nodes and vessels: No retroperitoneal or mesenteric adenopathy by size criteria. Aorta and inferior vena cava are normal in caliber. Miscellaneous: Chronic diastasis of the anterior abdominal wall with herniation a large amount of small bowel and colon and mesenteric fat. The bowel loops extend to the skin surface, where there is a relatively sizable superficial skin wound. The loops immediately subjacent to the wound are not abnormally thickened. There are no dilated loops. The abdominal wall defect measures approximately 13.0 x 17.5 cm. PELVIS: Genitourinary: Bladder wall thickness is normal. Miscellaneous: No inguinal hernias or adenopathy. Bones: No suspicious bony lesions. There is a severe L5 compression of uncertain chronicity. There is severe canal stenosis at L4-L5. IMPRESSION: 1. Chronic diastasis of the anterior abdominal wall with large hernia containing abundant small bowel and colon. There is a skin wound. There are loops of bowel close to the skin wound. However, they have a normal appearance. 2. Severe L5 compression of uncertain chronicity. Severe canal stenosis at L4-L5. Dictated by: Jona Azul M.D. on 03/14/2022 at 15:56 Approved by: Jona Azul M.D. on 03/14/2022 at 16:14
== END ==
PROVIDERS: PCP Internal Medicine; Referring Provider Surgery; Visit Provider Surgery
DX: K43.2 Incisional hernia without obstruction or gangrene (principal); M62.08 Separation of muscle (nontraumatic), other site; M48.061 Spinal stenosis, lumbar region without neurogenic claudication
CPT/HCPCS: 74176

== ENCOUNTER → 2022-03-15 14:43 | Outpatient (CLI) | payer MEDICARE, OTHER, SELFPAY ==
[2022-03-06 21:52] VITALS: BMI 48.6
[2022-03-15 16:08] LABS: COVID19 -Nasal RAPID Negative (Negative)
== END ==
PROVIDERS: PCP Internal Medicine; Referring Provider Internal Medicine; Visit Provider Internal Medicine
DX: Z20.822 Contact with and (suspected) exposure to COVID-19 (principal)
CPT/HCPCS: 87635; C9803

== ENCOUNTER → 2022-03-16 08:14 | Outpatient (CLI) | payer MEDICARE, OTHER, SELFPAY ==
[2022-03-06 21:52] VITALS: BMI 48.6
--- NOTE | 2022-03-21 10:41 | PM.PFT.1 ---
Pulmonary Function Test Referral & Results Date Patient Seen: 03/16/22 Requesting provider: Galo Bucio Indication: Pulmonary hypertension Results: The spirometry demonstrates an FVC of 1.46 L which is 53% of predicted. The FEV1 was measured at 1.04 L which is 50% of predicted. The FEV1/FVC ratio was 71 which is 94% of predicted. Following the administration of bronchodilator there was no appreciable change. Lung volumes show an SVC of 1.87 L which is 69% of predicted. The diffusing capacity was measured at 17.53 which is 76% of predicted. No hemoglobin value was provided, so no correction for potential anemia could be made, if appropriate. The maximum voluntary ventilation was reduced Interpretation: This study demonstrates possibly moderate to moderately severe obstructive lung disease based on reduction FEV1 although FEV1/FVC ratio is preserved and there is no evidence of benefit after bronchodilator There is a moderate reduction in lung volumes suggesting moderate restrictive lung disease which probably explains part of the abnormality of the FEV1 above There is also evidence mild disease at the capillary alveolar level based on reduction in diffusing capacity
== END ==
PROVIDERS: PCP Internal Medicine; Referring Provider Internal Medicine; Visit Provider Internal Medicine
DX: J98.4 Other disorders of lung (principal)
CPT/HCPCS: 94060; 94726; 94729

== ENCOUNTER → 2022-03-20 09:54 | Outpatient (CLI) | payer MEDICARE, OTHER, SELFPAY ==
[2022-03-06 21:52] VITALS: BMI 48.6
== END ==
PROVIDERS: PCP Internal Medicine; Referring Provider Internal Medicine; Visit Provider Surgery
DX: S31.103A Unspecified open wound of abdominal wall, right lower quadrant without penetration into peritoneal cavity, initial encounter (principal); E11.628 Type 2 diabetes mellitus with other skin complications
CPT/HCPCS: 99213; 99214

== ENCOUNTER → 2022-03-20 16:30 | Outpatient (ROUT) | payer MEDICARE, OTHER, SELFPAY ==
[2022-03-06 21:52] VITALS: BMI 48.6
== END ==
PROVIDERS: Visit Provider Surgery
DX: L08.9 Local infection of the skin and subcutaneous tissue, unspecified (principal)
CPT/HCPCS: 87070; 87075; 87077; 87147; 87186; 87205

== ENCOUNTER → 2022-03-27 12:53 | Outpatient (CLI) | payer MEDICARE, OTHER, SELFPAY ==
[2022-03-06 21:52] VITALS: BMI 48.6
== END ==
PROVIDERS: PCP Internal Medicine; Referring Provider Internal Medicine; Visit Provider Surgery
DX: E11.628 Type 2 diabetes mellitus with other skin complications (principal); S31.103A Unspecified open wound of abdominal wall, right lower quadrant without penetration into peritoneal cavity, initial encounter; K43.2 Incisional hernia without obstruction or gangrene; L08.9 Local infection of the skin and subcutaneous tissue, unspecified
CPT/HCPCS: 99213

== ENCOUNTER → 2022-04-10 12:56 | Outpatient (CLI) | payer MEDICARE, OTHER, SELFPAY ==
[2022-03-06 21:52] VITALS: BMI 48.6
--- NOTE | 2022-04-10 | DI.MRI.S_ITS ---
PROCEDURE: MR LUMBAR SPINE WO CON INDICATIONS: Spinal stenosis, lumbar region TECHNIQUE: Noncontrast sagittal T1 spin echo and T2 fast echo, sagittal STIR, and T2 fast spin echo through the lumbar spine. In cases with scoliosis, additional coronal T2 fast spin echo may be performed. COMPARISON: [facility], CR, XR LUMBAR SPINE MIN 4V, 02/06/2022, 15:21. [facility], CT, CT ABDOMEN PELVIS WITH CONTRAST, 01/14/2018, 15:18. [facility], CR, XR CHEST 2V, 02/22/2022, 15:16. [facility], CT, CT ABDOMEN PELVIS WO CON, 03/14/2022, 12:59. FINDINGS: Image quality: Excellent. Alignment and Curvature: There is grade 1 L1 on L2 retrolisthesis. A severe compression deformity is present at L5. There are retropulsed fracture fragments present with resultant severe canal stenosis. Bone Marrow: Reactive endplate changes are present at L1-L2. Marrow edema is present at the superior L5 endplate in the region of the severe compression deformity. Spinal Cord: Conus medullaris terminates at the L1-L2 level. Visualized cord demonstrates normal signal and size. Paraspinous Soft Tissues: No paravertebral masses. There is likely a left renal cyst which is incompletely characterized. T12-L1: Mild disc desiccation and height loss. Severe facet ligamentum flavum hypertrophy. Broad-based disc bulge. No canal stenosis. Mild bilateral foraminal narrowing. L1-L2: Severe disc desiccation and height loss. Retrolisthesis. Broad-based disc bulge. Severe facet ligamentum flavum hypertrophy. Severe canal stenosis. Moderate bilateral foraminal narrowing. L2-L3: Mild disc desiccation and height loss. Broad-based disc bulge. Severe facet ligamentum flavum hypertrophy. Severe canal stenosis. Mild bilateral foraminal stenosis. L3-L4: Mild disc desiccation and height loss. Broad-based disc bulge. Severe facet ligamentum flavum hypertrophy. Severe canal stenosis. Severe bilateral foraminal stenosis with flattening of the bilateral exiting nerve roots. L4-L5: Disc desiccation. Severe superior L5 endplate compression deformity with retropulsed fracture fragments. Severe facet and ligamentum flavum hypertrophy. Severe canal stenosis. Severe bilateral neural foraminal stenosis with flattening of the bilateral exiting nerve roots. L5-S1: Disc desiccation. Broad-based disc bulge. Severe facet sclerosis. No canal stenosis. Moderate bilateral foraminal stenosis. IMPRESSION: 1. Severe compression deformity at the superior L5 endplate with approximately 90% vertebral body height loss. Findings of likely of all the when compared with the plain film dated February 06, 2022. There retropulsed fracture fragments with resultant severe canal stenosis. 2. Severe canal stenosis is present at L1-2, L2-3, L3-4, and L4-5 secondary to broad-based disc bulges and severe facet ligamentum flavum hypertrophy. 3. Severe bilateral foraminal stenosis at L3-4 and L4-5 with flattening of the bilateral exiting nerve roots at both levels. 4. Probable left renal cyst which is incompletely characterized. Dictated by: Cyndi Neil M.D. on 04/10/2022 at 14:39 Approved by: Cyndi Neil M.D. on 04/10/2022 at 14:46
== END ==
PROVIDERS: PCP Internal Medicine; Referring Provider Orthopaedic Surgery Orthopaedic Surgery of the Spine; Visit Provider Orthopaedic Surgery Orthopaedic Surgery of the Spine
DX: M48.061 Spinal stenosis, lumbar region without neurogenic claudication (principal); M51.36 Other intervertebral disc degeneration, lumbar region; M43.9 Deforming dorsopathy, unspecified
CPT/HCPCS: 72148

== ENCOUNTER → 2022-04-11 13:19 | Outpatient (CLI) | payer MEDICARE, OTHER, SELFPAY ==
[2022-03-06 21:52] VITALS: BMI 48.6
== END ==
PROVIDERS: PCP Internal Medicine; Referring Provider Internal Medicine; Visit Provider Surgery
DX: S31.103A Unspecified open wound of abdominal wall, right lower quadrant without penetration into peritoneal cavity, initial encounter (principal); E11.628 Type 2 diabetes mellitus with other skin complications
CPT/HCPCS: 97597; 99213

== ENCOUNTER → 2022-04-25 13:14 | Outpatient (CLI) | payer MEDICARE, OTHER, SELFPAY ==
[2022-03-06 21:52] VITALS: BMI 48.6
== END ==
PROVIDERS: PCP Internal Medicine; Referring Provider Internal Medicine; Visit Provider Surgery
DX: S31.103A Unspecified open wound of abdominal wall, right lower quadrant without penetration into peritoneal cavity, initial encounter (principal); E11.628 Type 2 diabetes mellitus with other skin complications; Z01.818 Encounter for other preprocedural examination; Z01.812 Encounter for preprocedural laboratory examination; R73.9 Hyperglycemia, unspecified; L08.9 Local infection of the skin and subcutaneous tissue, unspecified; S32.050D Wedge compression fracture of fifth lumbar vertebra, subsequent encounter for fracture with routine healing; M51.36 Other intervertebral disc degeneration, lumbar region; M51.37 Other intervertebral disc degeneration, lumbosacral region; M48.061 Spinal stenosis, lumbar region without neurogenic claudication; M48.07 Spinal stenosis, lumbosacral region
CPT/HCPCS: 36415; 72131; 80053; 83036; 85025; 87070; 87075; 87077; 87147; 87185; 87186; 87205; 93005; 93010; 99213; 99214

== ENCOUNTER → 2022-04-25 14:02 | Outpatient (CLI) | payer MEDICARE, OTHER, SELFPAY ==
[2022-03-06 21:52] VITALS: BMI 48.6
--- NOTE | 2022-04-25 14:08 | DI.CT.S_ITS ---
PROCEDURE: CT LUMBAR SPINE WO CON INDICATIONS: SPINAL STENOSIS TECHNIQUE: Noncontrast 3 mm thick sections acquired from the T12 level to the sacrum. Sagittal and coronal reformats were constructed. For radiation dose reduction, the following was used: automated exposure control. COMPARISON: [facility], MR, MR LUMBAR SPINE WO CON, 04/10/2022, 13:26. [facility] [place], CR, XR LUMBAR SPINE 2 OR 3 VIEWS, 03/27/2022, 10:30. FINDINGS: Image quality: Excellent. Bones: L5 compression deformity is again seen with approximately 60% loss of vertebral body height centrally. Mild retropulsion of bony fragments is seen at the L4-5 disc space level measuring up to 4 mm, not significantly changed when compared to the MRI from 04/10/2022. There is trace dextroconvex curvature of the thoracolumbar spine. There is 5 mm grade 1 retrolisthesis of L1 on L2.No suspicious lytic or blastic bony lesions. No pars defects. T12-L1: Mild loss of disc space height with circumferential disc bulging and mild bilateral facet hypertrophy and buckling of the ligamentum flavum, which result in mild narrowing of the bilateral neural foramina without significant spinal canal stenosis. L1-L2: Severe loss of disc space height with reactive endplate changes and grade 1 retrolisthesis of L1 on L2 as well as bilateral facet hypertrophy and buckling of the ligamentum flavum. Findings result in severe narrowing of the central spinal canal as well as severe right and moderate left neural foraminal narrowing. L2-L3: Circumferential disc bulging as well as severe bilateral facet hypertrophy and buckling of the ligamentum flavum result in severe narrowing of the spinal canal as well as moderate right and severe left neural foraminal narrowing. L3-L4: Circumferential disc bulging as well as severe bilateral facet hypertrophy and buckling of the ligamentum flavum result in severe narrowing of the spinal canal as well as severe bilateral neural foraminal narrowing. L4-L5: L5 compression deformity with retropulsion of superior L5 endplate bony fragment, as well as superimposed circumferential disc bulging, severe bilateral facet hypertrophy, and buckling of the ligamentum flavum. Findings result in severe narrowing of the spinal canal as well as severe bilateral neural foraminal narrowing. L5-S1: Mild circumferential disc bulging as well as severe bilateral facet hypertrophy and mild buckling of the ligamentum flavum. Findings result in moderate right and severe left neural foraminal narrowing. Soft tissues: No retroperitoneal masses or hematomas. Fluid attenuating left renal cyst is present. Visualized aorta is normal in caliber. Grade 2 fatty infiltration of the paraspinous musculature. A gastric lap band is present. Cholecystectomy clips are partially visualized. There is bilateral sacroiliac joint osteoarthrosis. IMPRESSION: 1. Unchanged appearance of L5 compression fracture with retropulsion of osseous fragments again seen resulting in severe spinal canal stenosis at and just below the L4-5 level. 2. Advanced degenerative disc disease and facet hypertrophy throughout the lumbar spine resulting in multilevel severe spinal canal stenosis and multilevel severe neural foraminal narrowing as described in detail in the body of the report. Approved by: Miguel Diallo M.D. on 04/25/2022 at 20:32
[2022-04-25 15:24] LABS: Add Manual Diff / Slide Review NO; Basophils Absolute Auto 0 /uL (0-100); Basophils Percent Auto 0.3 % (0-2); Eosinophils Absolute Auto 100 /uL (0-450); Eosinophils Percent Auto 1.1 % (2-4); Hematocrit 37.2 % (36-46); Lymphocytes Absolute Auto 1400 /uL (1100-4500); Lymphocytes Percent Auto 17.8 % (25-40); Mean Corpuscular HGB Conc 32.3 % (30-36); Mean Corpuscular Hemoglobin 27.7 PG (26-34); Monocytes Absolute Auto 600 /uL (0-900); Neutrophils Absolute Auto 5800 /uL (1500-7000); Neutrophils Percent Auto 73.8 % (50-75); Platelet Count 249 X10^3/uL (150-400); Red Blood Cell Count 4.33 X10^6/uL (4.0-5.2); Red Cell Distribution Width 16.1 % (11.6-14.8); White Blood Cell Count 7.9 X10^3/uL (4.5-11.0)
[2022-04-25 15:44] LABS: Alanine Aminotransferase 23 IU/L (<35); Albumin 3.7 g/dL (3.5-5.0); Albumin Globulin Ratio 1.2 (1.0-2.8); Alkaline Phosphatase 75 U/L (38-126); Aspartate Aminotransferase 26 IU/L (14-36); BUN Creatinine Ratio 29.8 (6-22); Bilirubin Total 0.7 mg/dL (0.2-1.3); Blood Urea Nitrogen 34 mg/dL (7-17); Calcium 9.2 mg/dL (8.4-10.2); Carbon Dioxide 19 mmol/L (22-32); Chloride 108 mmol/L (98-107); Estimated Glomerular Filt Rate 51 mL/min (>60); Glucose 127 mg/dL (80-110); HEMOLYSIS < 15 (0-50); Potassium 4.9 mmol/L (3.4-5.1); Sodium 141 mmol/L (137-145); Total Protein 6.7 g/dL (6.3-8.2)
[2022-04-25 16:09] LABS: Hemoglobin A1C% w Est Avg Glu 6.6 % (4.0-6.0)
== END ==
PROVIDERS: PCP Internal Medicine; Referring Provider Orthopaedic Surgery Orthopaedic Surgery of the Spine; Visit Provider Orthopaedic Surgery Orthopaedic Surgery of the Spine
DX: Z01.818 Encounter for other preprocedural examination (principal); Z01.812 Encounter for preprocedural laboratory examination; R73.9 Hyperglycemia, unspecified; L08.9 Local infection of the skin and subcutaneous tissue, unspecified; S32.050D Wedge compression fracture of fifth lumbar vertebra, subsequent encounter for fracture with routine healing; M51.36 Other intervertebral disc degeneration, lumbar region; M51.37 Other intervertebral disc degeneration, lumbosacral region; M48.061 Spinal stenosis, lumbar region without neurogenic claudication; M48.07 Spinal stenosis, lumbosacral region
CPT/HCPCS: 36415; 72131; 80053; 83036; 85025; 93005

== ENCOUNTER 2022-04-30 11:12 | Emergency (ER) | payer MEDICARE, OTHER, SELFPAY ==
[2022-03-06 21:52] VITALS: BMI 48.6
[2022-04-30] VITALS (9 sets, daily range): BP systolic 110–124; BP diastolic 56–59; PULSE 79–88; RESP 18–19; TEMP 36.8; O2SAT 93–97; BMI 47.5
--- NOTE | 2022-04-30 11:26 | ED_ITS ---
HPI - Abdominal Pain General Chief Complaint: Abdominal Pain Stated Complaint: hernia/wound on RT side/loss of daryl/ feels off Time Seen by Provider: 04/30/22 11:18 History of Present Illness HPI narrative: 71-year-old female nonsmoker with history of pulmonary hypertension, CHF, elevated LFTs, hypertension, diabetes and known right lower quadrant skin wound being managed by wound care presents stating that she feels a bit weak and lightheaded and generally fatigued. She states that she has some pain in her abdomen that is somewhat reminiscent of prior bowel obstructions and is con cerned perhaps that that is what is making her feel off. The pain is moderate in intensity and seems to come and go without any obvious provocation or palliation. She states that it has been 2 or 3 days since she is had a bowel movement which is not necessarily abnormal for her. She denies fever, chills nor nausea or vomiting. She is had no chest pain or shortness of breath. She denies any dysuria, frequency or urgency. Related Data Home Medications Medication Instructions Recorded Confirmed ascorbate calcium (vitamin C) 1 cap PO DAILY 03/02/21 03/15/22 aspirin 81 mg tablet,delayed 81 mg PO DAILY 03/02/21 03/15/22 release (Adult Low Dose Aspirin) calcium citrate 1,000 mg tablet 1,000 mg PO BID 03/02/21 03/15/22 cholecalciferol (vitamin D3) 10 10 mcg PO DAILY 03/02/21 03/15/22 mcg (400 unit) capsule krill oil 1 cap PO DAILY 03/02/21 03/15/22 multivitamin 1 tab PO DAILY 03/02/21 03/15/22 vitamin B complex 1 tab PO DAILY 03/02/21 03/15/22 Previous Rx's Medication Instructions Recorded glimepiride 2 mg tablet 2 mg PO DAILY #90 tabs 03/30/21 lisinopril 10 mg tablet 10 mg PO DAILY #90 tabs 03/30/21 metformin 1,000 mg tablet 1,000 mg PO BID #180 tabs 03/30/21 paroxetine HCl 20 mg tablet 20 mg PO DAILY #90 tabs 03/30/21 simvastatin 40 mg tablet 40 mg PO BEDTIME #90 tabs 03/30/21 pioglitazone 15 mg tablet 15 mg PO DAILY #90 tabs 08/15/21 Disabled Parking #1 ea 12/28/21 lidocaine 5 % topical patch 1 patch topical DAILY 15 days #15 02/06/22 ea hydrocodone 5 mg-acetaminophen 325 1 tab PO BID PRN pain #8 tabs 03/08/22 mg tablet furosemide 20 mg tablet 20 mg PO DAILY #90 tabs 03/15/22 potassium chloride 10 mEq 10 meq PO DAILY #90 tabs 03/15/22 tablet,extended release metoprolol tartrate 50 mg tablet 50 mg PO DAILY #90 tabs 04/17/22 magnesium oxide 400 mg PO BID #30 tabs 05/01/22 Allergies Allergy/AdvReac Type Severity Reaction Status Date / Time Penicillins Allergy Intermediate Hives Verified 04/30/22 11:29 morphine AdvReac Intermediate Nausea/Vomi Verified 04/30/22 11:29 ting sulfamethoxazole AdvReac Verified 04/30/22 11:29 [From Bactrim] trimethoprim [From Bactrim] AdvReac Verified 04/30/22 11:29 Review of Systems Review of Systems Narrative: GENERAL: See HPI HEENT: Denies sinus pain, ear pain, sore throat, difficulty swallowing, dizziness. RESPIRATORY: See HPI CARDIOVASCULAR: See HPI GASTROINTESTINAL: See HPI : Denies dysuria, frequency, incontinence, hematuria, urinary retention. MUSCULOSKELETAL: denies weakness, joint pain, or bony pain SKIN: Denies rash, skin lesions, or other NEUROLOGIC: Denies weakness, headache, numbness, change in speech, confusion, seizures, incoordination. PSYCHIATRIC: No concerning psychosocial issues. 12 point review of systems is negative except for those stated above Patient History Medical History Arm pain Atrial septal defect Chicken pox Chronic heart failure with preserved ejection fraction Deep vein thrombosis Depression Diabetes type 2, controlled (~2003) Elevated transaminase measurement Essential hypertension Fractures Gilbert's syndrome (~1999) Hearing loss History of adenomatous polyp of colon Measles Mixed hyperlipidemia Obesity, morbid Paroxysmal atrial flutter Pulmonary hypertension Rubella (~1967) Ventral hernia Visit for wound care Surgical History Anesthesia H/O cardiac radiofrequency ablation (~04/2019) History of cataract removal with insertion of prosthetic lens (~2017) History of elbow surgery (~1986) Hx of laparoscopic gastric banding (~2009) S/P appy S/P atrial septal defect closure (~1983) S/P cholecystectomy S/P repair of ventral hernia Status post carpal tunnel release of both wrists Family History Father Colon cancer Atrial fibrillation Mother Diabetes mellitus Hypertension Brother Chronic pain Sister Mental health problem Uses wheelchair Grandfather Hypertension Stroke Grandfather Stroke Grandmother Alzheimer's disease Social History household members: none Smoking Status: Never smoker alcohol intake: current Smoking Status: Never smoker alcohol intake frequency: holidays/special occasions only Substance Use Type: does not use Exam Narrative Exam Narrative: GENERAL: [71] year old patient appears stated age. Well-developed patient, in mild distress. HEAD: Atraumatic. Normocephalic. EYES: Pupils equal round and reactive. Extraocular motions intact. No scleral icterus. No injection or drainage. ENT: Dry mucous membranes Nose without bleeding, purulent drainage. Throat wit hout erythema, tonsillar hypertrophy or exudate. Airway patent. NECK: Trachea midline. Non tender CARDIOVASCULAR: Regular rate and rhythm without murmurs, gallops, or rubs. RESPIRATORY: Clear to auscultation. Breath sounds equal bilaterally. No wheezes, rales, or rhonchi. GASTROINTESTINAL: Abdomen soft, non-tender, nondistended. Bowel sounds present but distant in all quadrants. Right lower quadrant room with fresh dressing, no surrounding erythema or drainage EXTREMITIES: No edema or joint tenderness. BACK: Nontender without deformity or crepitance. No flank tenderness. NEURO: AOx3. SKIN: No rash or erythema of visible areas Initial Vital Signs Initial Vital Signs: Vital Signs Pulse Rate 88 04/30/22 11:19 Pulse Oximetry 96 04/30/22 11:19 Course Orders Ordered: Discontinued Medications Sodium Chloride (Normal Saline 0.9%) 1,000 mls @ 1,000 mls/hr IV BOLUS ONE Stop: 04/30/22 13:54 Last Infusion: 04/30/22 15:25 Dose: 0 mls/hr Documented By: Admin: 04/30/22 13:54 Dose: 1,000 mls/hr Documented By: AT Ondansetron HCl (Ondansetron 4 Mg/2 Ml Inj) 4 mg IV NOW ONE Stop: 04/30/22 13:01 Last Admin: 04/30/22 13:54 Dose: 4 mg Documented By: AT Reevaluation(s) Reevaluation #1: Patient feels much better after fluids, ambulating without difficulty, Vital Signs Vital signs: Vital Signs - 8 hr 04/30/22 11:29 04/30/22 11:33 Temperature 98.2 F Pulse Rate 85 Respiratory Rate 18 Blood Pressure 121/59 L Pulse Oximetry 97 Oxygen Delivery Method Room Air MDM - Abdominal Pain Lab Data Result diagrams: 04/30/22 11:48 04/30/22 11:48 Labs: Lab Results 04/30/22 04/30/22 04/30/22 Range/Units 11:40 11:48 11:48 WBC 8.3 (4.5-11.0) X10^3/uL RBC 4.34 (4.0-5.2) X10^6/uL Hgb 12.1 (12.0-16.0) g/dL Hct 36.6 (36-46) % MCV 84.5 (80-100) fL MCH 27.9 (26-34) PG MCHC 33.0 (30-36) % RDW 16.0 H (11.6-14.8) % Plt Count 330 (150-400) X10^3/uL Neut % (Auto) 80.7 H (50-75) % Lymph % (Auto) 11.2 L (25-40) % [place] % (Auto) 7.2 (3-14) % Eos % (Auto) 0.5 L (2-4) % Baso % (Auto) 0.4 (0-2) % Neut # (Auto) 6700 (3993-5036) /uL Lymph # (Auto) 900 L (5497-0751) /uL [place] # (Auto) 600 (0-900) /uL Eos # (Auto) 0 (0-450) /uL Baso # (Auto) 0 (0-100) /uL PT (10.1-12.7) SECONDS INR (0.9-1.3) Sodium 139 (137-145) mmol/L Potassium 4.4 (3.4-5.1) mmol/L Chloride 107 (98-107) mmol/L Carbon Dioxide 19 L (22-32) mmol/L BUN 51 H (7-17) mg/dL Creatinine 1.38 H (0.52-1.04) mg/dL Estimated GFR 40 L (>60) mL/min BUN/Creatinine Ratio 37.0 H (6-22) Glucose 164 H (80-110) mg/dL Lactate (0.7-2.1) mmol/L Calcium 9.5 (8.4-10.2) mg/dL Magnesium 1.0 L (1.6-2.3) mg/dL Total Bilirubin 0.6 (0.2-1.3) mg/dL AST 31 (14-36) IU/L ALT 25 (<35) IU/L Alkaline Phosphatase 70 (38-126) U/L Total Creatine Kinase (30-135) U/L CK-MB (CK-2) CK-MB (CK-2) Rel Index Troponin I (0.01-0.034) ng/mL NT-Pro-B Natriuret Pep 284 H (<125) pg/mL Total Protein 7.2 (6.3-8.2) g/dL Urine RBC (0-5/HPF) Urine WBC (0-5/HPF) Ur Squamous Epith Cells (0-5/HPF) Urine Bacteria (None) Ur Culture Indicated? SARS-CoV-2 (PCR) Negative (Negative) Influenza A (RT-PCR) Flu a negative (NEGATIVE) Influenza B (RT-PCR) Flu b negative (NEGATIVE) RSV (PCR) Negative (Negative) 04/30/22 04/30/22 04/30/22 Range/Units 11:48 11:48 11:48 WBC (4.5-11.0) X10^3/uL RBC (4.0-5.2) X10^6/uL Hgb (12.0-16.0) g/dL Hct (36-46) % MCV (80-100) fL MCH (26-34) PG MCHC (30-36) % RDW (11.6-14.8) % Plt Count (150-400) X10^3/uL Neut % (Auto) (50-75) % Lymph % (Auto) (25-40) % [place] % (Auto) (3-14) % Eos % (Auto) (2-4) % Baso % (Auto) (0-2) % Neut # (Auto) (7864-4975) /uL Lymph # (Auto) (0363-5895) /uL [place] # (Auto) (0-900) /uL Eos # (Auto) (0-450) /uL Baso # (Auto) (0-100) /uL PT 14.0 H (10.1-12.7) SECONDS INR 1.2 (0.9-1.3) Sodium (137-145) mmol/L Potassium (3.4-5.1) mmol/L Chloride (98-107) mmol/L Carbon Dioxide (22-32) mmol/L BUN (7-17) mg/dL Creatinine (0.52-1.04) mg/dL Estimated GFR (>60) mL/min BUN/Creatinine Ratio (6-22) Glucose (80-110) mg/dL Lactate 1.4 (0.7-2.1) mmol/L Calcium (8.4-10.2) mg/dL Magnesium (1.6-2.3) mg/dL Total Bilirubin (0.2-1.3) mg/dL AST (14-36) IU/L ALT (<35) IU/L Alkaline Phosphatase (38-126) U/L Total Creatine Kinase 26 L (30-135) U/L CK-MB (CK-2) TNP CK-MB (CK-2) Rel Index TNP Troponin I < 0.012 (0.01-0.034) ng/mL NT-Pro-B Natriuret Pep (<125) pg/mL Total Protein (6.3-8.2) g/dL Urine RBC (0-5/HPF) Urine WBC (0-5/HPF) Ur Squamous Epith Cells (0-5/HPF) Urine Bacteria (None) Ur Culture Indicated? SARS-CoV-2 (PCR) (Negative) Influenza A (RT-PCR) (NEGATIVE) Influenza B (RT-PCR) (NEGATIVE) RSV (PCR) (Negative) 04/30/22 Range/Units 13:05 WBC (4.5-11.0) X10^3/uL RBC (4.0-5.2) X10^6/uL Hgb (12.0-16.0) g/dL Hct (36-46) % MCV (80-100) fL MCH (26-34) PG MCHC (30-36) % RDW (11.6-14.8) % Plt Count (150-400) X10^3/uL Neut % (Auto) (50-75) % Lymph % (Auto) (25-40) % [place] % (Auto) (3-14) % Eos % (Auto) (2-4) % Baso % (Auto) (0-2) % Neut # (Auto) (7924-8945) /uL Lymph # (Auto) (3849-6000) /uL [place] # (Auto) (0-900) /uL Eos # (Auto) (0-450) /uL Baso # (Auto) (0-100) /uL PT (10.1-12.7) SECONDS INR (0.9-1.3) Sodium (137-145) mmol/L Potassium (3.4-5.1) mmol/L Chloride (98-107) mmol/L Carbon Dioxide (22-32) mmol/L BUN (7-17) mg/dL Creatinine (0.52-1.04) mg/dL Estimated GFR (>60) mL/min BUN/Creatinine Ratio (6-22) Glucose (80-110) mg/dL Lactate (0.7-2.1) mmol/L Calcium (8.4-10.2) mg/dL Magnesium (1.6-2.3) mg/dL Total Bilirubin (0.2-1.3) mg/dL AST (14-36) IU/L ALT (<35) IU/L Alkaline Phosphatase (38-126) U/L Total Creatine Kinase (30-135) U/L CK-MB (CK-2) CK-MB (CK-2) Rel Index Troponin I (0.01-0.034) ng/mL NT-Pro-B Natriuret Pep (<125) pg/mL Total Protein (6.3-8.2) g/dL Urine RBC None seen (0-5/HPF) Urine WBC 1-5/hpf (0-5/HPF) Ur Squamous Epith Cells 5-10 /hpf H (0-5/HPF) Urine Bacteria Few (2-10) H (None) Ur Culture Indicated? Specimen cultured SARS-CoV-2 (PCR) (Negative) Influenza A (RT-PCR) (NEGATIVE) Influenza B (RT-PCR) (NEGATIVE) RSV (PCR) (Negative) Point of care testing: Urine Dip Bedside Urine Glucose Negative Bedside Urine Bilirubin - Negative Bedside Urine Ketone - Negative Urine Specific [place] 1.015 Bedside Urine Occult Blood - Negative Bedside Urine pH 5.5 Bedside Urine Protein +/- 15 Bedside Urine Urobilinogen - Negative Bedside Urine Nitrite - Negative Bedside Urine Leukocytes +/- [address] scan - abdomen/pelvis: Radiologist's Impression: [address] [address] [address] Scan Report Signed Patient: Kiesha Cutler MR#: [id number] : 1950 Acct:[id number] Age/Sex: 71 / F Date of Service: 04/30/22 Loc: ED Accession Number: [id number] ?? Procedure: CT abdomen pelvis w con Ordering Provider: Sabas Matthews D.O. PROCEDURE:? CT ABDOMEN PELVIS W CON ? INDICATIONS:? severe abdominal pain, worsening hernia pain, no BM ? TECHNIQUE:? After the administration of intravenous contrast, axial sections acquired from the lung bases to the pubic symphysis.? Coronal and sagittal reformats were performed.? For radiation dose reduction, the following was used:? automated exposure control, adjustment of mA and/or kV according to patient size.? ? COMPARISON:? None. ? FINDINGS:? Image quality:? Excellent.? ? Lung bases:? Unremarkable. Heart:? No significant findings. ? ABDOMEN: Liver:? Unremarkable.? ? Gallbladder:? Surgically absent.? ? Biliary ducts:? Unremarkable.? ? Pancreas:? Unremarkable.? ? Spleen:? Unremarkable.? ? Adrenal Glands:? Unremarkable.? ? Kidneys and Ureters:? Unremarkable.? ? ? Stomach and Bowel:? The stomach is decompressed.? Focal wall thickening and perienteric fat stranding is present within the duodenum.? The more distal small bowel demonstrates normal caliber and wall thickness.? The colon demonstrates normal caliber and wall thickness.? A laparoscopic band is present near the gastric cardia. Peritoneum:? No abnormal intraperitoneal fluid.? No free air.? ? Ventral Wall:? There is a large, wide necked midline ventral hernia which contains multiple loops of nondilated small bowel and colon in addition to mesenteric fat. Abdominal Nodes:? No retroperitoneal or mesenteric adenopathy by size criteria.? Vessels:? Aorta and inferior vena cava are normal in size.? ? PELVIS: Pelvic Organs:? Unremarkable.? ? Bladder:? Unremarkable.? ? Pelvic Nodes: No enlarged lymph nodes.? Miscellaneous: No hernias are seen. ? ? ? Bones:? Unremarkable.? IMPRESSION:? ? 1. Focal wall thickening and perienteric fat stranding at the duodenum suspicious for enteritis.? Duodenal ulcer and resultant inflammatory change could also be consi dered in the differential. ? 2. Large ventral hernia.? No findings to suggest obstruction, strangulation or ischemia.? Dictated by: Cyndi Neil M.D. on 04/30/2022 at 13:35 ? ? Approved by: Cyndi Neil M.D. on 04/30/2022 at 13:44 ? MDM Narrative Medical decision making narrative: CC: 71-year-old female with vague complaints of feeling generally unwell and fatigued Complicating co-morbidities: H, elevated BMI, CHF, diabetes Data collected from: Patient Medical records reviewed: Multiple prior ED notes Differential considered, but not limited to: Dehydration, UTI, electrolyte abnormality, bowel obstruction versus other Exam documented above, pertinent findings include: Dry mucous membranes and poor skin turgor, abdomen is soft and nontender, bowel sounds present though distant. Patient awake and alert, lungs clear Lab Test results independently reviewed as above. Pertinent findings: No notable elevation of white blood cells, slight uptake and neutrophil%, low magnesium Independently reviewed EKG as above Imaging studies independently reviewed: [address] [id number] Scan ReportSigned Patient: Kiesha Cutler KMR#: [id number]: 9Acct:[id number]/Sex: 71 / FDate of Service: 04/30/22Loc: EDAccession Number: [id number] Procedure: CT abdomen pelvis w con Ordering Provider: Sabas Matthews D.O. PROCEDURE: CT ABDOMEN PELVIS W CON INDICATIONS: severe abdominal pain, worsening hernia pain, no BM TECHNIQUE: After the administration of intravenous contrast, axial sections acquired from the lung bases to the pubic symphysis. Coronal and sagittal reformats were performed. For radiation dose reduction, the following was used: automated exposure control, adjustment of mA and/or kV according to patient size. COMPARISON: None. FINDINGS: Image quality: Excellent. Lung bases: Unremarkable. Heart: No significant findings. ABDOMEN: Liver: Unremarkable. Gallbladder: Surgically absent. Biliary ducts: Unremarkable. Pancreas: Unremarkable. Spleen: Unremarkable. Adrenal Glands: Unremarkable. Kidneys and Ureters: Unremarkable. Stomach and Bowel: The stomach is decompressed. Focal wall thickening and perienteric fat stranding is present within the duodenum. The more distal small bowel demonstrates normal caliber and wall thickness. The colon demonstrates normal caliber and wall thickness. A laparoscopic band is present near the gastric cardia. Peritoneum: No abnormal intraperitoneal fluid. No free air. Ventral Wall: There is a large, wide necked midline ventral hernia which contains multiple loops of nondilated small bowel and colon in addition to mesenteric fa t. Abdominal Nodes: No retroperitoneal or mesenteric adenopathy by size criteria. Vessels: Aorta and inferior vena cava are normal in size. PELVIS: Pelvic Organs: Unremarkable. Bladder: Unremarkable. Pelvic Nodes: No enlarged lymph nodes. Miscellaneous: No hernias are seen. Bones: Unremarkable. IMPRESSION: 1. Focal wall thickening and perienteric fat stranding at the duodenum suspicious for enteritis. Duodenal ulcer and resultant inflammatory change could also be considered in the differential. 2. Large ventral hernia. No findings to suggest obstruction, strangulation or ischemia. Dictated by: Cyndi Neil M.D. on 04/30/2022 at 13:35 Approved by: Cyndi Neil M.D. on 04/30/2022 at 13:44 Treatments: Patient feeling significant improvement after above-stated therapies, ambulatory, stable orthostatics. Imaging does mention that there is possible enteritis which could be consistent with her symptoms. No evidence antibiotics are indicated. Re-evaluations: Significant improvement with above-stated therapies Disposition: see below, along with detailed discharge instructions that have been reviewed with patient as well as indications for ED re-evaluation and additional outpatient follow up Discharge Plan Departure Patient Disposition: Home Clinical Impression: Acute dehydration, Abdominal pain, Hypomagnesemia Instructions: DI for Dehydration -- Adult Activity Restrictions/Additional Instructions: *You have been diagnosed with [dehydration, low magnesium and abdominal pain.] As we discussed your history and physical exam as well as labs are very reassuring. There is no evidence of infection, bowel obstruction or surgical abnormality with your abdomen. Furthermore, your swabs for flu, COVID and RSV are negative. *What to do: *Please continue to take your regular medications as directed. *Please follow up with your primary care provider in 2-3 days, call for an appointment. Let them know you were seen in the Emergency Department and that we ask that you be seen in follow up. We will electronically transmit a record of today's note if your PCP is in our system * please continue following up with Wound Care for your abdominal wound as you have been planning *Return to Emergency Department if you should have any new, worsening or concerning symptoms, such as [fever greater than 101 F, shaking chills, worsening pain, persistent vomiting or other bothersome symptoms] Prescriptions: New magnesium oxide 400 mg magnesium tablet 400 mg PO BID Qty: 30 0RF No Action lidocaine 5 % adhesive patch,medicated 1 patch topical DAILY 15 Days Qty: 15 1RF Rx Instructions: leave on most painful area for up to 12 hrs glimepiride 2 mg tablet 2 mg PO DAILY Qty: 90 3RF lisinopril 10 mg tablet 10 mg PO DAILY Qty: 90 3RF metformin 1,000 mg tablet 1,000 mg PO BID Qty: 180 3RF paroxetine HCl 20 mg tablet 20 mg PO DAILY Qty: 90 3RF simvastatin 40 mg tablet 40 mg PO BEDTIME Qty: 90 3RF pioglitazone 15 mg tablet 15 mg PO DAILY Qty: 90 3RF (DME) Disabled Parking See Rx Instructions .ROUTE .MEDSUPPLY Qty: 1 0RF Rx Instructions: Patient qualifies for disabled parking as per the attached form. metoprolol tartrate 50 mg tablet 50 mg PO DAILY Qty: 90 3RF calcium citrate 1,000 mg tablet 1,000 mg PO BID multivitamin Tablet 1 tab PO DAILY krill oil 1 cap PO DAILY aspirin [Adult Low Dose Aspirin] 81 mg tablet,delayed release (DR/EC) 81 mg PO DAILY vitamin B complex 1 tab PO DAILY cholecalciferol (vitamin D3) 10 mcg (400 unit) capsule 10 mcg PO DAILY ascorbate calcium (vitamin C) 1 cap PO DAILY furosemide 20 mg tablet 20 mg PO DAILY Qty: 90 3RF potassium chloride 10 mEq tablet extended release 10 meq PO DAILY Qty: 90 3RF hydrocodone-acetaminophen 5-325 mg tablet 1 tab PO BID PRN (Reason: pain) Qty: 8 0RF Referrals: Galo Bucio MD [Primary Care Provider] - Stand Alone Forms: Patient Portal/API
--- NOTE | 2022-04-30 11:28 | DI.RAD.S_ITS ---
PROCEDURE: XR CHEST 1V INDICATIONS: weak, fatigued TECHNIQUE: One view of the chest was acquired. COMPARISON: [facility], CR, XR CHEST 1V, 03/06/2022, 14:35. FINDINGS: Surgical changes and devices: Patient is status post median sternotomy. The upper sternotomy wire is fractured, as before. Lungs and pleura: The left hemidiaphragm is obscured suggesting left basilar airspace opacities. The lungs are otherwise clear. No pleural effusion or pneumothorax. Mediastinum: Mediastinal contours appear normal. Heart size is normal. Bones and chest wall: No suspicious bony lesions. Overlying soft tissues appear unremarkable. IMPRESSION: Questionable left basilar pulmonary radiopacities. Differential considerations include atelectasis, aspiration, and infection. Dictated by: Cyndi Neil M.D. on 04/30/2022 at 12:13 Approved by: Cyndi Neil M.D. on 04/30/2022 at 12:13
[2022-04-30 11:58] LABS: Add Manual Diff / Slide Review NO; Basophils Absolute Auto 0 /uL (0-100); Basophils Percent Auto 0.4 % (0-2); Eosinophils Absolute Auto 0 /uL (0-450); Eosinophils Percent Auto 0.5 % (2-4); Hematocrit 36.6 % (36-46); Hemoglobin 12.1 g/dL (12.0-16.0); Lymphocytes Absolute Auto 900 /uL (1100-4500); Lymphocytes Percent Auto 11.2 % (25-40); Mean Corpuscular Hemoglobin 27.9 PG (26-34); Mean Corpuscular Volume 84.5 fL (80-100); Monocytes Absolute Auto 600 /uL (0-900); Monocytes Percent Auto 7.2 % (3-14); Neutrophils Absolute Auto 6700 /uL (1500-7000); Neutrophils Percent Auto 80.7 % (50-75); Platelet Count 330 X10^3/uL (150-400); Red Blood Cell Count 4.34 X10^6/uL (4.0-5.2); White Blood Cell Count 8.3 X10^3/uL (4.5-11.0)
[2022-04-30 12:05] LABS: INR 1.2 (0.9-1.3)
[2022-04-30 12:08] LABS: Lactate (Lactic Acid) 1.4 mmol/L (0.7-2.1)
[2022-04-30 12:10] LABS: Alanine Aminotransferase 25 IU/L (<35); Alkaline Phosphatase 70 U/L (38-126); Aspartate Aminotransferase 31 IU/L (14-36); Bilirubin Total 0.6 mg/dL (0.2-1.3); Blood Urea Nitrogen 51 mg/dL (7-17); Calcium 9.5 mg/dL (8.4-10.2); Carbon Dioxide 19 mmol/L (22-32); Chloride 107 mmol/L (98-107); Creatine Kinase 26 U/L (30-135); Estimated Glomerular Filt Rate 40 mL/min (>60); Glucose 164 mg/dL (80-110); Potassium 4.4 mmol/L (3.4-5.1); Sodium 139 mmol/L (137-145); Total Protein 7.2 g/dL (6.3-8.2)
[2022-04-30 12:18] LABS: NT-proBNP (BNP-Adult 18+) 284 pg/mL (<125)
[2022-04-30 12:21] LABS: Troponin I < 0.012 ng/mL (0.01-0.034)
[2022-04-30 12:51] LABS: Influenza A - CEPHEID Flu A NEGATIVE (NEGATIVE); Influenza B - CEPHEID Flu B NEGATIVE (NEGATIVE); Respiratory Syncytial Virus Negative (Negative)
[2022-04-30 12:54] LABS: COVID-19 CEPHEID 4-PLEX PCR Negative (Negative)
--- NOTE | 2022-04-30 12:55 | DI.CT.S_ITS ---
PROCEDURE: CT ABDOMEN PELVIS W CON INDICATIONS: severe abdominal pain, worsening hernia pain, no BM TECHNIQUE: After the administration of intravenous contrast, axial sections acquired from the lung bases to the pubic symphysis. Coronal and sagittal reformats were performed. For radiation dose reduction, the following was used: automated exposure control, adjustment of mA and/or kV according to patient size. COMPARISON: None. FINDINGS: Image quality: Excellent. Lung bases: Unremarkable. Heart: No significant findings. ABDOMEN: Liver: Unremarkable. Gallbladder: Surgically absent. Biliary ducts: Unremarkable. Pancreas: Unremarkable. Spleen: Unremarkable. Adrenal Glands: Unremarkable. Kidneys and Ureters: Unremarkable. Stomach and Bowel: The stomach is decompressed. Focal wall thickening and perienteric fat stranding is present within the duodenum. The more distal small bowel demonstrates normal caliber and wall thickness. The colon demonstrates normal caliber and wall thickness. A laparoscopic band is present near the gastric cardia. Peritoneum: No abnormal intraperitoneal fluid. No free air. Ventral Wall: There is a large, wide necked midline ventral hernia which contains multiple loops of nondilated small bowel and colon in addition to mesenteric fat. Abdominal Nodes: No retroperitoneal or mesenteric adenopathy by size criteria. Vessels: Aorta and inferior vena cava are normal in size. PELVIS: Pelvic Organs: Unremarkable. Bladder: Unremarkable. Pelvic Nodes: No enlarged lymph nodes. Miscellaneous: No hernias are seen. Bones: Unremarkable. IMPRESSION: 1. Focal wall thickening and perienteric fat stranding at the duodenum suspicious for enteritis. Duodenal ulcer and resultant inflammatory change could also be considered in the differential. 2. Large ventral hernia. No findings to suggest obstruction, strangulation or ischemia. Dictated by: Cyndi Neil M.D. on 04/30/2022 at 13:35 Approved by: Cyndi Neil M.D. on 04/30/2022 at 13:44
[2022-04-30 13:51] LABS: Bacteria Urine Few (2-10); Culture Indicated Urine Specimen Cultured; RBC Urine None Seen (0-5/HPF); Squamous Epithelial Cell Urine 5-10 /HPF (0-5/HPF); WBC Urine 1-5/HPF (0-5/HPF)
[2022-04-30] MEDS: SODIUM CHLORIDE 0.9% 1,000 ML 1000 ML IV (13:54)
[2022-04-30] MEDS: ONDANSETRON 4 MG/2 ML INJ IV (13:54)
[2022-05-04 15:41] LABS: Albumin 3.7 g/dL (3.5-5.0); Albumin Globulin Ratio 1.1 (1.0-2.8); Globulin 3.5 g/dL (1.7-4.1); HEMOLYSIS 17 (0-50)
== END 2022-04-30 15:46 | disposition home or self-care (01) ==
PROVIDERS: Emergency Provider Emergency Medicine; PCP Internal Medicine
DX: R10.31 Right lower quadrant pain (principal); E83.42 Hypomagnesemia; E86.0 Dehydration; Z79.899 Other long term (current) drug therapy; Z20.822 Contact with and (suspected) exposure to COVID-19
CPT/HCPCS: 0241U; 36415; 71045; 74177; 80053; 81003; 81015; 82550; 83605; 83735; 83880; 84484; 85025; 85610; 87086; 96361; 96374; 99284; J2405; Q9967

== ENCOUNTER → 2022-05-02 09:52 | Outpatient (CLI) | payer MEDICARE, OTHER, SELFPAY ==
[2022-03-06 21:52] VITALS: BMI 48.6
== END ==
PROVIDERS: PCP Internal Medicine; Referring Provider Internal Medicine; Visit Provider Surgery
DX: S31.103A Unspecified open wound of abdominal wall, right lower quadrant without penetration into peritoneal cavity, initial encounter (principal); T81.89XA Other complications of procedures, not elsewhere classified, initial encounter
CPT/HCPCS: 99213

== ENCOUNTER → 2022-05-09 14:04 | Outpatient (CLI) | payer MEDICARE, OTHER, SELFPAY ==
[2022-03-06 21:52] VITALS: BMI 48.6
== END ==
PROVIDERS: PCP Internal Medicine; Referring Provider Internal Medicine; Visit Provider Surgery
DX: S31.103A Unspecified open wound of abdominal wall, right lower quadrant without penetration into peritoneal cavity, initial encounter (principal); E66.9 Obesity, unspecified; R21 Rash and other nonspecific skin eruption; E11.628 Type 2 diabetes mellitus with other skin complications
CPT/HCPCS: 87070; 87075; 87077; 87147; 87186; 87205; 99213; 99214

== ENCOUNTER → 2022-05-16 08:50 | Outpatient (CLI) | payer MEDICARE, OTHER, SELFPAY ==
[2022-03-06 21:52] VITALS: BMI 48.6
== END ==
PROVIDERS: PCP Internal Medicine; Referring Provider Internal Medicine; Visit Provider Surgery
DX: S31.103A Unspecified open wound of abdominal wall, right lower quadrant without penetration into peritoneal cavity, initial encounter (principal); E11.628 Type 2 diabetes mellitus with other skin complications; E66.9 Obesity, unspecified
CPT/HCPCS: 99213

== ENCOUNTER → 2022-05-22 11:40 | Outpatient (CLI) | payer MEDICARE, OTHER, SELFPAY ==
[2022-03-06 21:52] VITALS: BMI 48.6
== END ==
PROVIDERS: PCP Internal Medicine; Referring Provider Internal Medicine; Visit Provider Surgery
DX: S31.103A Unspecified open wound of abdominal wall, right lower quadrant without penetration into peritoneal cavity, initial encounter (principal); T81.89XA Other complications of procedures, not elsewhere classified, initial encounter; E11.628 Type 2 diabetes mellitus with other skin complications
CPT/HCPCS: 99213

== ENCOUNTER → 2022-05-30 10:27 | Outpatient (CLI) | payer MEDICARE, OTHER, SELFPAY ==
[2022-03-06 21:52] VITALS: BMI 48.6
== END ==
PROVIDERS: PCP Internal Medicine; Referring Provider Internal Medicine; Visit Provider Surgery
DX: E11.628 Type 2 diabetes mellitus with other skin complications (principal); S31.103A Unspecified open wound of abdominal wall, right lower quadrant without penetration into peritoneal cavity, initial encounter; K43.2 Incisional hernia without obstruction or gangrene; M54.50 Low back pain, unspecified
CPT/HCPCS: 99213

== ENCOUNTER 2022-06-03 12:54 | Emergency (ER) | payer MEDICARE, OTHER, SELFPAY ==
[2022-03-06 21:52] VITALS: BMI 48.6
[2022-06-03] VITALS (35 sets, daily range): BP systolic 96–124; BP diastolic 49–78; PULSE 42–95; RESP 12–26; TEMP 36.5; O2SAT 82–99; BMI 43.4
[2022-06-03] MEDS: ONDANSETRON 4 MG/2 ML INJ IV (14:06)
[2022-06-03 14:13] LABS: Add Manual Diff / Slide Review NO; Basophils Absolute Auto 0 /uL (0-100); Basophils Percent Auto 0.3 % (0-2); Eosinophils Absolute Auto 0 /uL (0-450); Eosinophils Percent Auto 0.1 % (2-4); Hematocrit 34.8 % (36-46); Hemoglobin 11.3 g/dL (12.0-16.0); Lymphocytes Absolute Auto 1100 /uL (1100-4500); Lymphocytes Percent Auto 8.9 % (25-40); Mean Corpuscular HGB Conc 32.5 % (30-36); Mean Corpuscular Hemoglobin 27.2 PG (26-34); Mean Corpuscular Volume 83.7 fL (80-100); Monocytes Absolute Auto 800 /uL (0-900); Monocytes Percent Auto 6.4 % (3-14); Neutrophils Absolute Auto 10800 /uL (1500-7000); Neutrophils Percent Auto 84.3 % (50-75); Platelet Count 383 X10^3/uL (150-400); Red Blood Cell Count 4.16 X10^6/uL (4.0-5.2); Red Cell Distribution Width 17.2 % (11.6-14.8); White Blood Cell Count 12.7 X10^3/uL (4.5-11.0)
[2022-06-03 14:25] LABS: Alanine Aminotransferase 17 IU/L (<35); Albumin 3.4 g/dL (3.5-5.0); Alkaline Phosphatase 101 U/L (38-126); Aspartate Aminotransferase 24 IU/L (14-36); Bilirubin Total 0.3 mg/dL (0.2-1.3); Calcium 8.4 mg/dL (8.4-10.2); Chloride 107 mmol/L (98-107); Globulin 3.5 g/dL (1.7-4.1); Glucose 175 mg/dL (80-110); HEMOLYSIS < 15 (0-50); Lipase 395 U/L (23-300); Potassium 4.6 mmol/L (3.4-5.1); Sodium 139 mmol/L (137-145); Total Protein 6.9 g/dL (6.3-8.2)
[2022-06-03 14:33] LABS: BUN Creatinine Ratio 28.7 (6-22)
[2022-06-03 14:35] LABS: Blood Urea Nitrogen 147 mg/dL (7-17); Carbon Dioxide 9 mmol/L (22-32)
[2022-06-03 14:49] LABS: Estimated Glomerular Filt Rate 8 mL/min (>60); Influenza A - CEPHEID Flu A NEGATIVE (NEGATIVE); Influenza B - CEPHEID Flu B NEGATIVE (NEGATIVE); Respiratory Syncytial Virus Negative (Negative)
[2022-06-03 14:50] LABS: COVID-19 CEPHEID 4-PLEX PCR Negative (Negative)
--- NOTE | 2022-06-03 15:12 | ED.WEAKNESS ---
HPI - Weakness <Rachelle Arceo, DO - Last Filed: 06/12/22 02:32> General Chief complaint: Weakness Stated complaint: nausea, throwing up, fell yest, weak, fx L5 Time Seen by Provider: 06/03/22 15:12 Source: patient and family Mode of arrival: Wheelchair History of Present Illness HPI Narrative: Patient is 72-year-old female nonsmoker history pulmonary hypertension, congestive heart failure with preserved EF, diabetes, chronic abdominal hernia now with wound presenting with generalized weakness. She is followed by wound care she has a chronic abdominal wound thought secondary to be from a large abdominal hernia. She was put on Keflex in April for 10 days has been on doxycycline for 7 days in May. She is basically been nauseous with decreased oral intake for about a month. She thought she was reacting to the antibiotics. She is had any fever or chills. Last couple days she is had significant decreased urination. She is able to tolerate her oral pills. She denies any significant abdominal pain. No fever or chills. It is constantly draining but not significantly tender. Related Data Home Medications Medication Instructions Recorded Confirmed aspirin 81 mg tablet,delayed 81 mg PO DAILY 03/02/21 06/04/22 release (Adult Low Dose Aspirin) calcium citrate 1,000 mg tablet 1,000 mg PO BID 03/02/21 06/04/22 cholecalciferol (vitamin D3) 10 10 mcg PO DAILY 03/02/21 06/04/22 mcg (400 unit) capsule multivitamin 1 tab PO DAILY 03/02/21 06/04/22 omeprazole magnesium 20 mg 20 mg PO DAILY 05/08/22 06/04/22 capsule,delayed release ascorbate calcium (vitamin C) 500 500 mg PO DAILY 06/04/22 06/04/22 mg tablet krill oil 500 mg capsule 500 mg PO DAILY 06/04/22 06/04/22 vitamin B complex 1 tab PO DAILY 06/04/22 06/04/22 Previous Rx's Medication Instructions Recorded pioglitazone 15 mg tablet 15 mg PO DAILY #90 tabs 08/15/21 Disabled Parking #1 ea 12/28/21 furosemide 20 mg tablet 20 mg PO DAILY #90 tabs 03/15/22 potassium chloride 10 mEq 10 meq PO DAILY #90 tabs 03/15/22 tablet,extended release magnesium oxide 400 mg PO BID #30 tabs 05/01/22 metoprolol tartrate 50 mg tablet 25 mg PO BID #90 tabs 05/08/22 glimepiride 2 mg tablet 2 mg PO DAILY #90 tabs 05/15/22 lisinopril 10 mg tablet 10 mg PO DAILY #90 tabs 05/15/22 metformin 1,000 mg tablet 1,000 mg PO BID #180 tabs 05/15/22 paroxetine HCl 20 mg tablet 20 mg PO DAILY #90 tabs 05/15/22 simvastatin 40 mg tablet 40 mg PO BEDTIME #90 tabs 05/15/22 oxycodone 5 mg tablet 5 mg PO Q6H PRN pain #30 tabs 05/17/22 Allergies Allergy/AdvReac Type Severity Reaction Status Date / Time Penicillins Allergy Intermediate Hives Verified 05/08/22 15:03 morphine AdvReac Intermediate Nausea/Vomi Verified 05/08/22 15:03 ting sulfamethoxazole AdvReac Verified 05/08/22 15:03 [From Bactrim] trimethoprim [From Bactrim] AdvReac Verified 05/08/22 15:03 Review of Systems <Rachelle Arceo DO - Last Filed: 06/12/22 02:32> Review of Systems ROS Unobtainable: All systems reviewed & are unremarkable except as noted in HPI and below Patient History <Rachelle Arceo DO - Last Filed: 06/12/22 02:32> Medical History Arm pain Atrial septal defect Chicken pox Chronic heart failure with preserved ejection fraction Deep vein thrombosis Depression Diabetes type 2, controlled (~2003) Elevated transaminase measurement Essential hypertension Fractures Gilbert's syndrome (~1999) Hearing loss History of adenomatous polyp of colon Measles Mixed hyperlipidemia Obesity, morbid Paroxysmal atrial flutter Rubella (~1967) Ventral hernia Visit for wound care Surgical History Anesthesia H/O cardiac radiofrequency ablation (~04/2019) History of cataract removal with insertion of prosthetic lens (~2017) History of elbow surgery (~1986) Hx of laparoscopic gastric banding (~2009) S/P appy S/P atrial septal defect closure (~1983) S/P cholecystectomy S/P repair of ventral hernia Status post carpal tunnel release of both wrists Family History Father Colon cancer Atrial fibrillation Mother Diabetes mellitus Hypertension Brother Chronic pain Sister Mental health problem Uses wheelchair Grandfather Hypertension Stroke Grandfather Stroke Grandmother Alzheimer's disease Social History household members: none Smoking Status: Never smoker alcohol intake: current Smoking Status: Never smoker alcohol intake frequency: holidays/special occasions only Substance Use Type: does not use Exam <Rachelle Arceo DO - Last Filed: 06/12/22 02:32> Initial Vital Signs Initial Vital Signs: Vital Signs Temperature 97.7 F 06/03/22 13:07 Pulse Rate 90 06/03/22 13:07 Respiratory Rate 20 06/03/22 13:07 Blood Pressure 97/56 L 06/03/22 13:07 Pulse Oximetry 98 06/03/22 13:07 Oxygen Delivery Method 06/03/22 13:07 GENERAL: Alert week 72-year-old female BMI 40 and in no acute distress. HEENT: Head atraumatic,EOMI, pupils reactive, face symmetric, moist mucous membranes CARDIOVASCULAR: Regular rate and rhythm without murmurs, rubs or gallops. RESPIRATORY: Breath sounds equal bilaterally, no wheezes rales or rhonchi. ABDOMEN: Soft, obese abdomen right-sided hernia appreciated a wound in bandage slightly saturated mildly tender EXTREMITIES: Normal range of motion, no clubbing or edema. Neurovascularly intact NEUROLOGICAL: Alert and oriented x4.Normal gait and speech. SKIN: Warm, dry, no laceration, no petechiae, no rashes or lesions. <Sabas Matthews DO - Last Filed: 06/04/22 18:30> Initial Vital Signs Initial Vital Signs: Vital Signs Temperature 97.7 F 06/03/22 13:07 Pulse Rate 90 06/03/22 13:07 Respiratory Rate 20 06/03/22 13:07 Blood Pressure 97/56 L 06/03/22 13:07 Pulse Oximetry 98 06/03/22 13:07 Oxygen Delivery Method 06/03/22 13:07 Course <DO Horace Sterling Last Filed: 06/12/22 02:32> Orders Ordered: Discontinued Medications Acetaminophen (Acetaminophen 325 Mg Tablet) 650 mg PO Q6H [facility] [place] Last Admin: 06/04/22 16:11 Dose: 650 mg Documented By: Admin: 06/04/22 08:22 Dose: 650 mg Documented By: Admin: 06/04/22 02:14 Dose: 650 mg Documented By: Admin: 06/03/22 21:30 Dose: Not Given Documented By: MIA Heparin Sodium (Porcine) (Heparin 5,000 Unit/Ml Vial) 5,000 unit SUBCUT BID [facility] [place] Last Admin: 06/04/22 08:21 Dose: 5,000 unit Documented By: Admin: 06/03/22 21:30 Dose: 5,000 unit Documented By: MIA Hydroxyzine Pamoate (Hydroxyzine Pamoate 25 Mg Capsule) 25 mg PO NOW ONE Stop: 06/03/22 18:16 Last Admin: 06/03/22 18:38 Dose: 25 mg Documented By: MIA Hydroxyzine Pamoate (Hydroxyzine Pamoate 25 Mg Capsule) 25 mg PO NOW ONE Stop: 06/03/22 20:47 Last Admin: 06/03/22 21:25 Dose: Not Given Documented By: MIA Sodium Chloride (Normal Saline 0.9%) 1,000 mls @ 1,000 mls/hr IV BOLUS ONE Stop: 06/03/22 16:50 Last Infusion: 06/03/22 17:43 Dose: 0 mls/hr Documented By: Admin: 06/03/22 15:57 Dose: 1,000 mls/hr Documented By: MIA Sodium Chloride (Normal Saline 0.9%) 1,000 mls @ 1,000 mls/hr IV BOLUS ONE Stop: 06/03/22 16:51 Last Admin: 06/03/22 17:51 Dose: Not Given Documented By: MANUEL Sodium Chloride (Normal Saline 0.9%) 1,000 mls @ 125 mls/hr IV CONT [facility] [place] Last Infusion: 06/04/22 14:39 Dose: 0 mls/hr Documented By: Admin: 06/04/22 10:11 Dose: 125 mls/hr Documented By: Infusion: 06/04/22 07:53 Dose: 0 mls/hr Documented By: Admin: 06/03/22 18:05 Dose: 125 mls/hr Documented By: MANUEL Ceftriaxone Sodium 2,000 mg/ (Sodium Chloride) 100 mls @ 200 mls/hr IV NOW ONE Stop: 06/03/22 19:14 Last Infusion: 06/03/22 21:25 Dose: 0 mls/hr Documented By: Admin: 06/03/22 19:36 Dose: 200 mls/hr Documented By: MIA Ceftriaxone Sodium 1,000 mg/ (Sodium Chloride) 100 mls @ 200 mls/hr IV DAILY APOORVA Last Infusion: 06/04/22 09:14 Dose: 0 mls/hr Documented By: Admin: 06/04/22 08:20 Dose: 200 mls/hr Documented By: RB Sodium Chloride (Normal Saline 0.9%) 1,000 mls @ 1,000 mls/hr IV BOLUS ONE Stop: 06/04/22 08:52 Last Infusion: 06/04/22 09:51 Dose: 0 mls/hr Documented By: Infusion: 06/04/22 08:23 Dose: 800 mls/hr Documented By: Admin: 06/04/22 08:22 Dose: 1,000 mls/hr Documented By: ANN Sodium Bicarbonate 125 meq/ (Dextrose) 1,125 mls @ 150 mls/hr IV CONT APOORVA Last Infusion: 06/04/22 18:32 Dose: 0 mls/hr Documented By: Admin: 06/04/22 14:38 Dose: 150 mls/hr Documented By: MANUEL Naloxone HCl (Naloxone 0.4 Mg/Ml Vial) 0.2 mg IV Q2MIN PRN PRN Reason: Opiate Reversal Ondansetron HCl (Ondansetron 4 Mg Odt) 4 mg PO NOW PRN PRN Reason: Nausea And Vomiting Last Admin: 06/04/22 09:51 Dose: 4 mg Documented By: ANN Ondansetron HCl (Ondansetron 4 Mg/2 Ml Inj) 4 mg IV NOW PRN PRN Reason: Nausea And Vomiting Last Admin: 06/03/22 14:06 Dose: 4 mg Documented By: THIAGO Oxycodone HCl (Oxycodone Ir 5 Mg Tablet) 5 mg PO NOW ONE Stop: 06/03/22 18:16 Last Admin: 06/03/22 18:38 Dose: 5 mg Documented By: MIA Oxycodone HCl (Oxycodone 5 Mg/5 Ml Oral Solution) 5 mg PO Q4HR PRN PRN Reason: Pain, Moderate (4-6) Last Admin: 06/04/22 02:14 Dose: 5 mg Documented By: PRO Oxycodone HCl (Oxycodone Ir 5 Mg Tablet) 5 mg PO Q4HR PRN PRN Reason: Pain, Severe (7-10) Stop: 06/07/22 11:45 Last Admin: 06/04/22 11:52 Dose: 5 mg Documented By: MANUEL Vital Signs Vital signs: Vital Signs - 8 hr 06/04/22 10:30 06/04/22 10:45 06/04/22 11:00 Pulse Rate 91 H 91 H 89 Respiratory Rate Blood Pressure Pulse Oximetry 96 96 96 Oxygen Delivery Method Oxygen Flow Rate 06/04/22 11:15 06/04/22 11:19 06/04/22 11:23 Pulse Rate 97 H 88 90 Respiratory Rate 21 Blood Pressure Pulse Oximetry 96 95 97 Oxygen Delivery Method Oxygen Flow Rate 06/04/22 11:23 06/04/22 11:30 06/04/22 11:45 Pulse Rate 91 H 97 H Respiratory Rate Blood Pressure 126/57 L Pulse Oximetry 98 98 Oxygen Delivery Method Oxygen Flow Rate 06/04/22 11:54 06/04/22 11:54 06/04/22 12:00 Pulse Rate 97 H 92 H Respiratory Rate Blood Pressure 128/60 Pulse Oximetry 98 98 Oxygen Delivery Method Oxygen Flow Rate 06/04/22 12:15 06/04/22 12:30 06/04/22 12:45 Pulse Rate 96 H 92 H 94 H Respiratory Rate Blood Pressure Pulse Oximetry 98 97 97 Oxygen Delivery Method Nasal Cannula Oxygen Flow Rate 2 06/04/22 13:00 06/04/22 13:15 06/04/22 13:30 Pulse Rate 95 H 94 H 97 H Respiratory Rate Blood Pressure Pulse Oximetry 97 98 97 Oxygen Delivery Method Oxygen Flow Rate 06/04/22 13:51 06/04/22 13:54 06/04/22 13:54 Pulse Rate 98 H 99 H Respiratory Rate Blood Pressure 118/53 L Pulse Oximetry 95 91 Oxygen Delivery Method Oxygen Flow Rate 06/04/22 13:56 06/04/22 13:56 06/04/22 14:00 Pulse Rate 97 H 94 H Respiratory Rate Blood Pressure 120/56 L Pulse Oximetry 91 88 L Oxygen Delivery Method Nasal Cannula Nasal Cannula Oxygen Flow Rate 2 2 06/04/22 14:01 06/04/22 14:01 06/04/22 14:05 Pulse Rate 97 H 91 H Respiratory Rate Blood Pressure 116/53 L Pulse Oximetry 89 L 91 Oxygen Delivery Method Nasal Cannula Nasal Cannula Oxygen Flow Rate 2 3 06/04/22 14:05 06/04/22 14:10 06/04/22 14:10 Pulse Rate 92 H Respiratory Rate Blood Pressure 110/53 L 135/56 L Pulse Oximetry 94 Oxygen Delivery Method Nasal Cannula Oxygen Flow Rate 3 06/04/22 14:15 06/04/22 14:16 06/04/22 14:16 Pulse Rate 91 H 92 H Respiratory Rate Blood Pressure 103/51 L Pulse Oximetry 94 95 Oxygen Delivery Method Nasal Cannula Nasal Cannula Oxygen Flow Rate 3 3 06/04/22 14:20 06/04/22 14:20 06/04/22 14:30 Pulse Rate 93 H 95 H Respiratory Rate Blood Pressure 109/68 Pulse Oximetry 94 94 Oxygen Delivery Method Oxygen Flow Rate 06/04/22 14:31 06/04/22 14:31 06/04/22 14:45 Pulse Rate 95 H Respiratory Rate Blood Pressure 112/88 92/65 Pulse Oximetry 94 Oxygen Delivery Method Oxygen Flow Rate 06/04/22 14:45 06/04/22 15:00 06/04/22 15:00 Pulse Rate 93 H 93 H Respiratory Rate Blood Pressure 97/56 L Pulse Oximetry 94 93 Oxygen Delivery Method Oxygen Flow Rate 06/04/22 15:15 06/04/22 15:15 06/04/22 15:30 Pulse Rate 92 H Respiratory Rate Blood Pressure 102/63 100/60 Pulse Oximetry 93 Oxygen Delivery Method Oxygen Flow Rate 06/04/22 15:30 06/04/22 15:45 06/04/22 15:45 Pulse Rate 94 H 91 H Respiratory Rate Blood Pressure 100/59 L Pulse Oximetry 94 94 Oxygen Delivery Method Oxygen Flow Rate 06/04/22 16:00 06/04/22 16:00 06/04/22 16:15 Pulse Rate 93 H Respiratory Rate Blood Pressure 103/58 L 110/63 Pulse Oximetry 93 Oxygen Delivery Method Oxygen Flow Rate 06/04/22 16:15 06/04/22 16:30 06/04/22 16:30 Pulse Rate 92 H 92 H Respiratory Rate Blood Pressure 114/59 L Pulse Oximetry 94 94 Oxygen Delivery Method Oxygen Flow Rate 06/04/22 16:45 06/04/22 16:45 06/04/22 17:00 Pulse Rate 93 H Respiratory Rate Blood Pressure 101/53 L 116/60 Pulse Oximetry 94 Oxygen Delivery Method Oxygen Flow Rate 06/04/22 17:00 06/04/22 17:15 06/04/22 17:15 Pulse Rate 92 H 93 H Respiratory Rate Blood Pressure 104/60 Pulse Oximetry 96 94 Oxygen Delivery Method Oxygen Flow Rate 06/04/22 17:30 06/04/22 17:30 06/04/22 17:45 Pulse Rate 90 Respiratory Rate Blood Pressure 115/69 114/65 Pulse Oximetry 94 Oxygen Delivery Method Oxygen Flow Rate 06/04/22 17:45 06/04/22 18:00 06/04/22 18:00 Pulse Rate 91 H 90 Respiratory Rate Blood Pressure 113/63 Pulse Oximetry 92 95 Oxygen Delivery Method Nasal Cannula Oxygen Flow Rate 3 <Sabas Matthews DO - Last Filed: 06/04/22 18:30> Orders Ordered: Discontinued Medications Acetaminophen (Acetaminophen 325 Mg Tablet) 650 mg PO Q6H [facility] [place] Last Admin: 06/04/22 16:11 Dose: 650 mg Documented By: Admin: 06/04/22 08:22 Dose: 650 mg Documented By: Admin: 06/04/22 02:14 Dose: 650 mg Documented By: Admin: 06/03/22 21:30 Dose: Not Given Documented By: MIA Heparin Sodium (Porcine) (Heparin 5,000 Unit/Ml Vial) 5,000 unit SUBCUT BID [facility] [place] Last Admin: 06/04/22 08:21 Dose: 5,000 unit Documented By: Admin: 06/03/22 21:30 Dose: 5,000 unit Documented By: MIA Hydroxyzine Pamoate (Hydroxyzine Pamoate 25 Mg Capsule) 25 mg PO NOW ONE Stop: 06/03/22 18:16 Last Admin: 06/03/22 18:38 Dose: 25 mg Documented By: MIA Hydroxyzine Pamoate (Hydroxyzine Pamoate 25 Mg Capsule) 25 mg PO NOW ONE Stop: 06/03/22 20:47 Last Admin: 06/03/22 21:25 Dose: Not Given Documented By: MIA Sodium Chloride (Normal Saline 0.9%) 1,000 mls @ 1,000 mls/hr IV BOLUS ONE Stop: 06/03/22 16:50 Last Infusion: 06/03/22 17:43 Dose: 0 mls/hr Documented By: Admin: 06/03/22 15:57 Dose: 1,000 mls/hr Documented By: MIA Sodium Chloride (Normal Saline 0.9%) 1,000 mls @ 1,000 mls/hr IV BOLUS ONE Stop: 06/03/22 16:51 Last Admin: 06/03/22 17:51 Dose: Not Given Documented By: MANUEL Sodium Chloride (Normal Saline 0.9%) 1,000 mls @ 125 mls/hr IV CONT APOORVA Last Infusion: 06/04/22 14:39 Dose: 0 mls/hr Documented By: Admin: 06/04/22 10:11 Dose: 125 mls/hr Documented By: Infusion: 06/04/22 07:53 Dose: 0 mls/hr Documented By: Admin: 06/03/22 18:05 Dose: 125 mls/hr Documented By: MANUEL Ceftriaxone Sodium 2,000 mg/ (Sodium Chloride) 100 mls @ 200 mls/hr IV NOW ONE Stop: 06/03/22 19:14 Last Infusion: 06/03/22 21:25 Dose: 0 mls/hr Documented By: Admin: 06/03/22 19:36 Dose: 200 mls/hr Documented By: MIA Ceftriaxone Sodium 1,000 mg/ (Sodium Chloride) 100 mls @ 200 mls/hr IV DAILY APOORVA Last Infusion: 06/04/22 09:14 Dose: 0 mls/hr Documented By: Admin: 06/04/22 08:20 Dose: 200 mls/hr Documented By: RB Sodium Chloride (Normal Saline 0.9%) 1,000 mls @ 1,000 mls/hr IV BOLUS ONE Stop: 06/04/22 08:52 Last Infusion: 06/04/22 09:51 Dose: 0 mls/hr Documented By: Infusion: 06/04/22 08:23 Dose: 800 mls/hr Documented By: Admin: 06/04/22 08:22 Dose: 1,000 mls/hr Documented By: RB Sodium Bicarbonate 125 meq/ (Dextrose) 1,125 mls @ 150 mls/hr IV CONT APOORVA Last Infusion: 06/04/22 18:32 Dose: 0 mls/hr Documented By: Admin: 06/04/22 14:38 Dose: 150 mls/hr Documented By: MANUEL Naloxone HCl (Naloxone 0.4 Mg/Ml Vial) 0.2 mg IV Q2MIN PRN PRN Reason: Opiate Reversal Ondansetron HCl (Ondansetron 4 Mg Odt) 4 mg PO NOW PRN PRN Reason: Nausea And Vomiting Last Admin: 06/04/22 09:51 Dose: 4 mg Documented By: RB Ondansetron HCl (Ondansetron 4 Mg/2 Ml Inj) 4 mg IV NOW PRN PRN Reason: Nausea And Vomiting Last Admin: 06/03/22 14:06 Dose: 4 mg Documented By: THIAGO Oxycodone HCl (Oxycodone Ir 5 Mg Tablet) 5 mg PO NOW ONE Stop: 06/03/22 18:16 Last Admin: 06/03/22 18:38 Dose: 5 mg Documented By: MIA Oxycodone HCl (Oxycodone 5 Mg/5 Ml Oral Solution) 5 mg PO Q4HR PRN PRN Reason: Pain, Moderate (4-6) Last Admin: 06/04/22 02:14 Dose: 5 mg Documented By: PRO Oxycodone HCl (Oxycodone Ir 5 Mg Tablet) 5 mg PO Q4HR PRN PRN Reason: Pain, Severe (7-10) Stop: 06/07/22 11:45 Last Admin: 06/04/22 11:52 Dose: 5 mg Documented By: MANUEL Consultations Consultation #1: Dr. Goldman ([facility]) agrees with therapies thus far, no current indication for emergent dialysis, recommends discussing with hospitalist Time: 13:00 Vital Signs Vital signs: Vital Signs - 8 hr 06/04/22 10:30 06/04/22 10:45 06/04/22 11:00 Pulse Rate 91 H 91 H 89 Respiratory Rate Blood Pressure Pulse Oximetry 96 96 96 Oxygen Delivery Method Oxygen Flow Rate 06/04/22 11:15 06/04/22 11:19 06/04/22 11:23 Pulse Rate 97 H 88 90 Respiratory Rate 21 Blood Pressure Pulse Oximetry 96 95 97 Oxygen Delivery Method Oxygen Flow Rate 06/04/22 11:23 06/04/22 11:30 06/04/22 11:45 Pulse Rate 91 H 97 H Respiratory Rate Blood Pressure 126/57 L Pulse Oximetry 98 98 Oxygen Delivery Method Oxygen Flow Rate 06/04/22 11:54 06/04/22 11:54 06/04/22 12:00 Pulse Rate 97 H 92 H Respiratory Rate Blood Pressure 128/60 Pulse Oximetry 98 98 Oxygen Delivery Method Oxygen Flow Rate 06/04/22 12:15 06/04/22 12:30 06/04/22 12:45 Pulse Rate 96 H 92 H 94 H Respiratory Rate Blood Pressure Pulse Oximetry 98 97 97 Oxygen Delivery Method Nasal Cannula Oxygen Flow Rate 2 06/04/22 13:00 06/04/22 13:15 06/04/22 13:30 Pulse Rate 95 H 94 H 97 H Respiratory Rate Blood Pressure Pulse Oximetry 97 98 97 Oxygen Delivery Method Oxygen Flow Rate 06/04/22 13:51 06/04/22 13:54 06/04/22 13:54 Pulse Rate 98 H 99 H Respiratory Rate Blood Pressure 118/53 L Pulse Oximetry 95 91 Oxygen Delivery Method Oxygen Flow Rate 06/04/22 13:56 06/04/22 13:56 06/04/22 14:00 Pulse Rate 97 H 94 H Respiratory Rate Blood Pressure 120/56 L Pulse Oximetry 91 88 L Oxygen Delivery Method Nasal Cannula Nasal Cannula Oxygen Flow Rate 2 2 06/04/22 14:01 06/04/22 14:01 06/04/22 14:05 Pulse Rate 97 H 91 H Respiratory Rate Blood Pressure 116/53 L Pulse Oximetry 89 L 91 Oxygen Delivery Method Nasal Cannula Nasal Cannula Oxygen Flow Rate 2 3 06/04/22 14:05 06/04/22 14:10 06/04/22 14:10 Pulse Rate 92 H Respiratory Rate Blood Pressure 110/53 L 135/56 L Pulse Oximetry 94 Oxygen Delivery Method Nasal Cannula Oxygen Flow Rate 3 06/04/22 14:15 06/04/22 14:16 06/04/22 14:16 Pulse Rate 91 H 92 H Respiratory Rate Blood Pressure 103/51 L Pulse Oximetry 94 95 Oxygen Delivery Method Nasal Cannula Nasal Cannula Oxygen Flow Rate 3 3 06/04/22 14:20 06/04/22 14:20 06/04/22 14:30 Pulse Rate 93 H 95 H Respiratory Rate Blood Pressure 109/68 Pulse Oximetry 94 94 Oxygen Delivery Method Oxygen Flow Rate 06/04/22 14:31 06/04/22 14:31 06/04/22 14:45 Pulse Rate 95 H Respiratory Rate Blood Pressure 112/88 92/65 Pulse Oximetry 94 Oxygen Delivery Method Oxygen Flow Rate 06/04/22 14:45 06/04/22 15:00 06/04/22 15:00 Pulse Rate 93 H 93 H Respiratory Rate Blood Pressure 97/56 L Pulse Oximetry 94 93 Oxygen Delivery Method Oxygen Flow Rate 06/04/22 15:15 06/04/22 15:15 06/04/22 15:30 Pulse Rate 92 H Respiratory Rate Blood Pressure 102/63 100/60 Pulse Oximetry 93 Oxygen Delivery Method Oxygen Flow Rate 06/04/22 15:30 06/04/22 15:45 06/04/22 15:45 Pulse Rate 94 H 91 H Respiratory Rate Blood Pressure 100/59 L Pulse Oximetry 94 94 Oxygen Delivery Method Oxygen Flow Rate 06/04/22 16:00 06/04/22 16:00 06/04/22 16:15 Pulse Rate 93 H Respiratory Rate Blood Pressure 103/58 L 110/63 Pulse Oximetry 93 Oxygen Delivery Method Oxygen Flow Rate 06/04/22 16:15 06/04/22 16:30 06/04/22 16:30 Pulse Rate 92 H 92 H Respiratory Rate Blood Pressure 114/59 L Pulse Oximetry 94 94 Oxygen Delivery Method Oxygen Flow Rate 06/04/22 16:45 06/04/22 16:45 06/04/22 17:00 Pulse Rate 93 H Respiratory Rate Blood Pressure 101/53 L 116/60 Pulse Oximetry 94 Oxygen Delivery Method Oxygen Flow Rate 06/04/22 17:00 06/04/22 17:15 06/04/22 17:15 Pulse Rate 92 H 93 H Respiratory Rate Blood Pressure 104/60 Pulse Oximetry 96 94 Oxygen Delivery Method Oxygen Flow Rate 06/04/22 17:30 06/04/22 17:30 06/04/22 17:45 Pulse Rate 90 Respiratory Rate Blood Pressure 115/69 114/65 Pulse Oximetry 94 Oxygen Delivery Method Oxygen Flow Rate 06/04/22 17:45 06/04/22 18:00 06/04/22 18:00 Pulse Rate 91 H 90 Respiratory Rate Blood Pressure 113/63 Pulse Oximetry 92 95 Oxygen Delivery Method Nasal Cannula Oxygen Flow Rate 3 MDM - Weakness <Rachelle Arceo DO - Last Filed: 06/12/22 02:32> Lab Data 06/03/22 14:10 06/03/22 14:10 Labs: Lab Results 06/03/22 06/03/22 06/03/22 Range/Units 14:09 14:09 14:10 WBC 12.7 H (4.5-11.0) X10^3/uL RBC 4.16 (4.0-5.2) X10^6/uL Hgb 11.3 L (12.0-16.0) g/dL Hct 34.8 L (36-46) % MCV 83.7 (80-100) fL MCH 27.2 (26-34) PG MCHC 32.5 (30-36) % RDW 17.2 H (11.6-14.8) % Plt Count 383 (150-400) X10^3/uL Neut % (Auto) 84.3 H (50-75) % Lymph % (Auto) 8.9 L (25-40) % [place] % (Auto) 6.4 (3-14) % Eos % (Auto) 0.1 L (2-4) % Baso % (Auto) 0.3 (0-2) % Neut # (Auto) 30694 H (2518-5800) /uL Lymph # (Auto) 1100 (4006-7963) /uL [place] # (Auto) 800 (0-900) /uL Eos # (Auto) 0 (0-450) /uL Baso # (Auto) 0 (0-100) /uL Sodium (137-145) mmol/L Potassium (3.4-5.1) mmol/L Chloride (98-107) mmol/L Carbon Dioxide (22-32) mmol/L BUN (7-17) mg/dL Creatinine (0.52-1.04) mg/dL Estimated GFR (>60) mL/min BUN/Creatinine Ratio (6-22) Glucose (80-110) mg/dL Lactate 1.0 (0.7-2.1) mmol/L Calcium (8.4-10.2) mg/dL Total Bilirubin (0.2-1.3) mg/dL AST (14-36) IU/L ALT (<35) IU/L Alkaline Phosphatase (38-126) U/L Total Creatine Kinase (30-135) U/L CK-MB (CK-2) CK-MB (CK-2) Rel Index Troponin I (0.01-0.034) ng/mL NT-Pro-B Natriuret Pep (<125) pg/mL Total Protein (6.3-8.2) g/dL Albumin (3.5-5.0) g/dL Globulin (1.7-4.1) g/dL Albumin/Globulin Ratio (1.0-2.8) Lipase (23-300) U/L Procalcitonin 0.92 H (<0.5) ng/mL Urine Color Urine Appearance Urine pH (4.5-8.0) Ur Specific [place] (1.000-1.035) Urine Protein (Negative) Urine Glucose (UA) (Negative) g/dL Urine Ketones (NEGATIVE) Urine Occult Blood (Negative) Urine Nitrate (Negative) Urine Bilirubin (NEGATIVE) Urine Urobilinogen (0.2) E.U./dL Ur Leukocyte Esterase (NEGATIVE) Urine RBC (0-5/HPF) Urine WBC (0-5/HPF) Urine Bacteria (None) Ur Culture Indicated? Ur Random Sodium (30-90) mmol/L Urine Creatinine mg/dL SARS-CoV-2 (PCR) (Negative) Influenza A (RT-PCR) (NEGATIVE) Influenza B (RT-PCR) (NEGATIVE) RSV (PCR) (Negative) 06/03/22 06/03/22 06/03/22 Range/Units 14:10 14:10 14:10 WBC (4.5-11.0) X10^3/uL RBC (4.0-5.2) X10^6/uL Hgb (12.0-16.0) g/dL Hct (36-46) % MCV (80-100) fL MCH (26-34) PG MCHC (30-36) % RDW (11.6-14.8) % Plt Count (150-400) X10^3/uL Neut % (Auto) (50-75) % Lymph % (Auto) (25-40) % [place] % (Auto) (3-14) % Eos % (Auto) (2-4) % Baso % (Auto) (0-2) % Neut # (Auto) (5656-9195) /uL Lymph # (Auto) (8547-8796) /uL [place] # (Auto) (0-900) /uL Eos # (Auto) (0-450) /uL Baso # (Auto) (0-100) /uL Sodium 139 (137-145) mmol/L Potassium 4.6 (3.4-5.1) mmol/L Chloride 107 (98-107) mmol/L Carbon Dioxide 9 L* (22-32) mmol/L BUN 147 H* (7-17) mg/dL Creatinine 5.13 H (0.52-1.04) mg/dL Estimated GFR 8 L (>60) mL/min BUN/Creatinine Ratio 28.7 H (6-22) Glucose 175 H (80-110) mg/dL Lactate (0.7-2.1) mmol/L Calcium 8.4 (8.4-10.2) mg/dL Total Bilirubin 0.3 (0.2-1.3) mg/dL AST 24 (14-36) IU/L ALT 17 (<35) IU/L Alkaline Phosphatase 101 (38-126) U/L Total Creatine Kinase 37 (30-135) U/L CK-MB (CK-2) TNP CK-MB (CK-2) Rel Index TNP Troponin I < 0.012 (0.01-0.034) ng/mL NT-Pro-B Natriuret Pep 1530 H (<125) pg/mL Total Protein 6.9 (6.3-8.2) g/dL Albumin 3.4 L (3.5-5.0) g/dL Globulin 3.5 (1.7-4.1) g/dL Albumin/Globulin Ratio 1.0 (1.0-2.8) Lipase 395 H (23-300) U/L Procalcitonin (<0.5) ng/mL Urine Color Urine Appearance Urine pH (4.5-8.0) Ur Specific [place] (1.000-1.035) Urine Protein (Negative) Urine Glucose (UA) (Negative) g/dL Urine Ketones (NEGATIVE) Urine Occult Blood (Negative) Urine Nitrate (Negative) Urine Bilirubin (NEGATIVE) Urine Urobilinogen (0.2) E.U./dL Ur Leukocyte Esterase (NEGATIVE) Urine RBC (0-5/HPF) Urine WBC (0-5/HPF) Urine Bacteria (None) Ur Culture Indicated? Ur Random Sodium (30-90) mmol/L Urine Creatinine mg/dL SARS-CoV-2 (PCR) Negative (Negative) Influenza A (RT-PCR) Flu a negative (NEGATIVE) Influenza B (RT-PCR) Flu b negative (NEGATIVE) RSV (PCR) Negative (Negative) 06/03/22 06/04/22 06/04/22 Range/Units 18:21 06:01 06:01 WBC 11.8 H (4.5-11.0) X10^3/uL RBC 3.85 L (4.0-5.2) X10^6/uL Hgb 10.4 L (12.0-16.0) g/dL Hct 32.4 L (36-46) % MCV 84.1 (80-100) fL MCH 27.1 (26-34) PG MCHC 32.2 (30-36) % RDW 18.0 H (11.6-14.8) % Plt Count 290 (150-400) X10^3/uL Neut % (Auto) 78.4 H (50-75) % Lymph % (Auto) 13.2 L (25-40) % [place] % (Auto) 7.7 (3-14) % Eos % (Auto) 0.4 L (2-4) % Baso % (Auto) 0.3 (0-2) % Neut # (Auto) 9200 H (3331-0639) /uL Lymph # (Auto) 1600 (6595-8672) /uL [place] # (Auto) 900 (0-900) /uL Eos # (Auto) 100 (0-450) /uL Baso # (Auto) 0 (0-100) /uL Sodium 140 (137-145) mmol/L Potassium 4.3 (3.4-5.1) mmol/L Chloride 113 H (98-107) mmol/L Carbon Dioxide 8 L* (22-32) mmol/L BUN 149 H* (7-17) mg/dL Creatinine 4.97 H (0.52-1.04) mg/dL Estimated GFR 9 L (>60) mL/min BUN/Creatinine Ratio 30.0 H (6-22) Glucose 54 L D (80-110) mg/dL Lactate (0.7-2.1) mmol/L Calcium 7.5 L (8.4-10.2) mg/dL Total Bilirubin 0.2 (0.2-1.3) mg/dL AST 21 (14-36) IU/L ALT 15 (<35) IU/L Alkaline Phosphatase 88 (38-126) U/L Total Creatine Kinase (30-135) U/L CK-MB (CK-2) CK-MB (CK-2) Rel Index Troponin I (0.01-0.034) ng/mL NT-Pro-B Natriuret Pep (<125) pg/mL Total Protein 5.8 L (6.3-8.2) g/dL Albumin 2.8 L (3.5-5.0) g/dL Globulin 3.0 (1.7-4.1) g/dL Albumin/Globulin Ratio 0.9 L (1.0-2.8) Lipase (23-300) U/L Procalcitonin (<0.5) ng/mL Urine Color Yellow Urine Appearance Cloudy Urine pH 5.5 (4.5-8.0) Ur Specific [place] 1.020 (1.000-1.035) Urine Protein 2+ H (Negative) Urine Glucose (UA) Negative (Negative) g/dL Urine Ketones Negative (NEGATIVE) Urine Occult Blood 2+ H (Negative) Urine Nitrate Negative (Negative) Urine Bilirubin Negative (NEGATIVE) Urine Urobilinogen 0.2 (0.2) E.U./dL Ur Leukocyte Esterase 3+ H (NEGATIVE) Urine RBC 5-10/hpf H (0-5/HPF) Urine WBC 30-100/hpf H (0-5/HPF) Urine Bacteria Moderate (10-30) H (None) Ur Culture Indicated? Specimen cultured Ur Random Sodium (30-90) mmol/L Urine Creatinine mg/dL SARS-CoV-2 (PCR) (Negative) Influenza A (RT-PCR) (NEGATIVE) Influenza B (RT-PCR) (NEGATIVE) RSV (PCR) (Negative) 06/04/22 Range/Units 09:40 WBC (4.5-11.0) X10^3/uL RBC (4.0-5.2) X10^6/uL Hgb (12.0-16.0) g/dL Hct (36-46) % MCV (80-100) fL MCH (26-34) PG MCHC (30-36) % RDW (11.6-14.8) % Plt Count (150-400) X10^3/uL Neut % (Auto) (50-75) % Lymph % (Auto) (25-40) % [place] % (Auto) (3-14) % Eos % (Auto) (2-4) % Baso % (Auto) (0-2) % Neut # (Auto) (9045-9588) /uL Lymph # (Auto) (1860-5018) /uL [place] # (Auto) (0-900) /uL Eos # (Auto) (0-450) /uL Baso # (Auto) (0-100) /uL Sodium (137-145) mmol/L Potassium (3.4-5.1) mmol/L Chloride (98-107) mmol/L Carbon Dioxide (22-32) mmol/L BUN (7-17) mg/dL Creatinine (0.52-1.04) mg/dL Estimated GFR (>60) mL/min BUN/Creatinine Ratio (6-22) Glucose (80-110) mg/dL Lactate (0.7-2.1) mmol/L Calcium (8.4-10.2) mg/dL Total Bilirubin (0.2-1.3) mg/dL AST (14-36) IU/L ALT (<35) IU/L Alkaline Phosphatase (38-126) U/L Total Creatine Kinase (30-135) U/L CK-MB (CK-2) CK-MB (CK-2) Rel Index Troponin I (0.01-0.034) ng/mL NT-Pro-B Natriuret Pep (<125) pg/mL Total Protein (6.3-8.2) g/dL Albumin (3.5-5.0) g/dL Globulin (1.7-4.1) g/dL Albumin/Globulin Ratio (1.0-2.8) Lipase (23-300) U/L Procalcitonin (<0.5) ng/mL Urine Color Urine Appearance Urine pH (4.5-8.0) Ur Specific [place] (1.000-1.035) Urine Protein (Negative) Urine Glucose (UA) (Negative) g/dL Urine Ketones (NEGATIVE) Urine Occult Blood (Negative) Urine Nitrate (Negative) Urine Bilirubin (NEGATIVE) Urine Urobilinogen (0.2) E.U./dL Ur Leukocyte Esterase (NEGATIVE) Urine RBC (0-5/HPF) Urine WBC (0-5/HPF) Urine Bacteria (None) Ur Culture Indicated? Ur Random Sodium 31 (30-90) mmol/L Urine Creatinine 86.1 mg/dL SARS-CoV-2 (PCR) (Negative) Influenza A (RT-PCR) (NEGATIVE) Influenza B (RT-PCR) (NEGATIVE) RSV (PCR) (Negative) Point of Care Testing Glucose POC [address] scan - abdomen/pelvis: Radiologist Impression: CT Scan Report Signed Patient: Kiesha Cutler MR#: [id number] : 1950 Acct:[id number] Age/Sex: 72 / F Date of Service: 06/03/22 Loc: ED Accession Number: [id number] ?? Procedure: CT abdomen pelvis wo con Ordering Provider: Rachelle Arceo D.O. PROCEDURE:? CT ABDOMEN PELVIS WO CON ? INDICATIONS:? renal failure, right sided hernia ? TECHNIQUE:? Axial sections were acquired from the lung bases to the pubic symphysis.? Coronal and sagittal reformats were performed.? For radiation dose reduction, the following was used: ?automated exposure control, adjustment of mA and/or kV according to patient size.? ? COMPARISON:? [facility], CT, CT LUMBAR SPINE WO CON, 04/25/2022, 14:18.? [facility], CT, CT ABDOMEN PELVIS WO CON, 03/14/2022, 12:59.? [facility], CR, XR CHEST 1V, 06/03/2022, 16:36.? [facility], CT, CT ABDOMEN PELVIS W CON, 04/30/2022, 13:07. ? FINDINGS:? Image quality:? Excellent.? ? Lung bases:? Unremarkable.? ? Heart:? No significant findings. ? URINARY: Right Kidney: ? No stones or hydronephrosis.? Right Ureter:? No hydroureter.? ? Left Kidney: ? No stones or hydronephrosis. Left Ureter:? No hydroureter.? ? Bladder:? A Dupont catheter is seen, which decompresses the bladder.? ? ABDOMEN: Liver:? Unremarkable.? ? Gallbladder:? Removed.? ? Biliary ducts:? Unremarkable.? ? Pancreas:? Unremarkable.? ? Spleen:? Unremarkable.? ? Adrenal Glands:? Unremarkable.? ? ? Stomach and Bowel:? A lap band is seen.? No dilated loops of small bowel are seen.? There is a proximal colon anastomotic staple line seen within the hernia, as on series 2 images 43 through 48. Peritoneum:? No abnormal intraperitoneal fluid.? No free air.? ? Ventral Wall:? There is a large anterior abdominal wall hernia seen inferiorly, to the right of the midline.? The hernia contains nondilated colon and nondilated small bowel. Abdominal Nodes:? No enlarged retroperitoneal or mesenteric lymph nodes.? Vessels:? Aorta and inferior vena cava are normal in size.? ? PELVIS: Pelvic Organs: The uterus appears normal for age.? No adnexal masses are seen.? Pelvic Nodes: Unremarkable. Miscellaneous: No inguinal hernias are seen. ? ? ? Bones:? Degenerative changes are seen throughout, which are worst involving the thoracolumbar junction.? Mild dextroconvex scoliotic curvature is seen. ? There is a remote, stable L5 compression deformity seen, with 4-5 mm posterior displacement fracture fragments.? Severe central canal narrowing can be seen at L4-L5. ? IMPRESSION:? ? No acute abnormality is seen. ? There is a large right anterior abdominal wall hernia seen inferiorly, without findings of obstruction. ? No findings of kidney stones or obstructive uropathy. ? ? ? Additional findings:? Cholecystectomy Lap band Dextroconvex scoliotic curvature Focal thoracolumbar junction degenerative change Stable chronic L5 compression deformity Severe central canal narrowing at L4-L5. Proximal colon anastomotic staple line Dupont catheter ? ? ? Dictated by: Rodolfo Woodard M.D. on 06/03/2022 at 15:59 ? ? Chest x-ray: Radiologist Impression: XRay Report Signed Patient: Kiesha Cutler MR#: [id number] : 1950 Acct:[id number] Age/Sex: 72 / F Date of Service: 06/03/22 Loc: ED Accession Number: [id number] ?? Procedure: XR chest 1V Ordering Provider: Rachelle Arceo D.O. PROCEDURE:? XR CHEST 1V ? INDICATIONS:? weakness ? TECHNIQUE:? One view of the chest was acquired.? ? COMPARISON:? [facility], CT, CT ABDOMEN PELVIS WO CON, 06/03/2022, 16:06.? [facility], CT, CT ANGIO CHEST PE PROTOCOL, 03/06/2022, 17:20.? [facility], CR, XR CHEST 1V, 03/06/2022, 14:35.? [facility], CR, XR CHEST 1V, 04/30/2022, 11:34. ? FINDINGS:? This study is limited by body habitus.? ? Surgical changes and devices:? Sternotomy wires are seen.? Cholecystectomy clips are seen.? ? Lungs and pleura:? On this semiupright portable chest examination, no large pneumothorax or large pleural effusions are seen.? No focal infiltrates are seen.? Low lung volumes are noted. This causes a crowded appearance to the lung markings and limits evaluation.? ? Mediastinum:? Mediastinal contours appear normal.? Heart size is at the upper limits of normal.? ? Bones and chest wall:? No suspicious bony lesions.? Age-appropriate bony degenerative changes are seen. ? Overlying soft tissues appear unremarkable.? ? ? IMPRESSION:? ? Limited portable chest examination, without a significant cardiopulmonary abnormality identified.? ? ? Postoperative and degenerative changes are seen.? ? ? Dictated by: Rodolfo Woodard M.D. on 06/03/2022 at 15:57 ? ? ECG Data Interpretation: Normal sinus rhythm rate 92 PA interval 144 QRS [address] changes or T-wave inversions mild artifact noted no priors to compare MDM Narrative Medical decision making narrative: Patient 72-year-old female chronically ill history of hypertension hyperlipidemia presenting today for generalized weakness. She is found to have acute kidney injury with a creatinine of 5.1 BUN of 147. Previous creatinine was 04/30/2022 at 1.38. Dupont catheter initially placed without any urine out. Patient has had very little intake her antibiotics have made her extremely nauseous. She has a wound on her abdomen she is chronic and she is being followed by wound care. Dressing has been placed. After 1 L patient did make about 50 cc of urine. It does show bacteria no nitrates, but 3+ leukocytes. She is given antibiotics Rocephin IV. She is feeling a bit better after some fluids. I suspect that this is all acute kidney injury secondary to dehydration and poor intake. CT abdomen shows large right anterior abdominal wall hernia seen inferiorly no evidence of kidney abnormality. Concern that patient may require dialysis or Nephrology. She is placed on multiple list but unable to be transferred currently. Patient signed out to Dr. Madden for further management. <Sabas Matthews, DO - Last Filed: 06/04/22 18:30> Lab Data Labs: Lab Results 06/03/22 06/03/22 06/03/22 Range/Units 14:09 14:09 14:10 WBC 12.7 H (4.5-11.0) X10^3/uL RBC 4.16 (4.0-5.2) X10^6/uL Hgb 11.3 L (12.0-16.0) g/dL Hct 34.8 L (36-46) % MCV 83.7 (80-100) fL MCH 27.2 (26-34) PG MCHC 32.5 (30-36) % RDW 17.2 H (11.6-14.8) % Plt Count 383 (150-400) X10^3/uL Neut % (Auto) 84.3 H (50-75) % Lymph % (Auto) 8.9 L (25-40) % [place] % (Auto) 6.4 (3-14) % Eos % (Auto) 0.1 L (2-4) % Baso % (Auto) 0.3 (0-2) % Neut # (Auto) 30973 H (0792-5815) /uL Lymph # (Auto) 1100 (1216-0881) /uL [place] # (Auto) 800 (0-900) /uL Eos # (Auto) 0 (0-450) /uL Baso # (Auto) 0 (0-100) /uL Sodium (137-145) mmol/L Potassium (3.4-5.1) mmol/L Chloride (98-107) mmol/L Carbon Dioxide (22-32) mmol/L BUN (7-17) mg/dL Creatinine (0.52-1.04) mg/dL Estimated GFR (>60) mL/min BUN/Creatinine Ratio (6-22) Glucose (80-110) mg/dL Lactate 1.0 (0.7-2.1) mmol/L Calcium (8.4-10.2) mg/dL Total Bilirubin (0.2-1.3) mg/dL AST (14-36) IU/L ALT (<35) IU/L Alkaline Phosphatase (38-126) U/L Total Creatine Kinase (30-135) U/L CK-MB (CK-2) CK-MB (CK-2) Rel Index Troponin I (0.01-0.034) ng/mL NT-Pro-B Natriuret Pep (<125) pg/mL Total Protein (6.3-8.2) g/dL Albumin (3.5-5.0) g/dL Globulin (1.7-4.1) g/dL Albumin/Globulin Ratio (1.0-2.8) Lipase (23-300) U/L Procalcitonin 0.92 H (<0.5) ng/mL Urine Color Urine Appearance Urine pH (4.5-8.0) Ur Specific [place] (1.000-1.035) Urine Protein (Negative) Urine Glucose (UA) (Negative) g/dL Urine Ketones (NEGATIVE) Urine Occult Blood (Negative) Urine Nitrate (Negative) Urine Bilirubin (NEGATIVE) Urine Urobilinogen (0.2) E.U./dL Ur Leukocyte Esterase (NEGATIVE) Urine RBC (0-5/HPF) Urine WBC (0-5/HPF) Urine Bacteria (None) Ur Culture Indicated? Ur Random Sodium (30-90) mmol/L Urine Creatinine mg/dL SARS-CoV-2 (PCR) (Negative) Influenza A (RT-PCR) (NEGATIVE) Influenza B (RT-PCR) (NEGATIVE) RSV (PCR) (Negative) 06/03/22 06/03/22 06/03/22 Range/Units 14:10 14:10 14:10 WBC (4.5-11.0) X10^3/uL RBC (4.0-5.2) X10^6/uL Hgb (12.0-16.0) g/dL Hct (36-46) % MCV (80-100) fL MCH (26-34) PG MCHC (30-36) % RDW (11.6-14.8) % Plt Count (150-400) X10^3/uL Neut % (Auto) (50-75) % Lymph % (Auto) (25-40) % [place] % (Auto) (3-14) % Eos % (Auto) (2-4) % Baso % (Auto) (0-2) % Neut # (Auto) (4918-1346) /uL Lymph # (Auto) (1627-0787) /uL [place] # (Auto) (0-900) /uL Eos # (Auto) (0-450) /uL Baso # (Auto) (0-100) /uL Sodium 139 (137-145) mmol/L Potassium 4.6 (3.4-5.1) mmol/L Chloride 107 (98-107) mmol/L Carbon Dioxide 9 L* (22-32) mmol/L BUN 147 H* (7-17) mg/dL Creatinine 5.13 H (0.52-1.04) mg/dL Estimated GFR 8 L (>60) mL/min BUN/Creatinine Ratio 28.7 H (6-22) Glucose 175 H (80-110) mg/dL Lactate (0.7-2.1) mmol/L Calcium 8.4 (8.4-10.2) mg/dL Total Bilirubin 0.3 (0.2-1.3) mg/dL AST 24 (14-36) IU/L ALT 17 (<35) IU/L Alkaline Phosphatase 101 (38-126) U/L Total Creatine Kinase 37 (30-135) U/L CK-MB (CK-2) TNP CK-MB (CK-2) Rel Index TNP Troponin I < 0.012 (0.01-0.034) ng/mL NT-Pro-B Natriuret Pep 1530 H (<125) pg/mL Total Protein 6.9 (6.3-8.2) g/dL Albumin 3.4 L (3.5-5.0) g/dL Globulin 3.5 (1.7-4.1) g/dL Albumin/Globulin Ratio 1.0 (1.0-2.8) Lipase 395 H (23-300) U/L Procalcitonin (<0.5) ng/mL Urine Color Urine Appearance Urine pH (4.5-8.0) Ur Specific [place] (1.000-1.035) Urine Protein (Negative) Urine Glucose (UA) (Negative) g/dL Urine Ketones (NEGATIVE) Urine Occult Blood (Negative) Urine Nitrate (Negative) Urine Bilirubin (NEGATIVE) Urine Urobilinogen (0.2) E.U./dL Ur Leukocyte Esterase (NEGATIVE) Urine RBC (0-5/HPF) Urine WBC (0-5/HPF) Urine Bacteria (None) Ur Culture Indicated? Ur Random Sodium (30-90) mmol/L Urine Creatinine mg/dL SARS-CoV-2 (PCR) Negative (Negative) Influenza A (RT-PCR) Flu a negative (NEGATIVE) Influenza B (RT-PCR) Flu b negative (NEGATIVE) RSV (PCR) Negative (Negative) 06/03/22 06/04/22 06/04/22 Range/Units 18:21 06:01 06:01 WBC 11.8 H (4.5-11.0) X10^3/uL RBC 3.85 L (4.0-5.2) X10^6/uL Hgb 10.4 L (12.0-16.0) g/dL Hct 32.4 L (36-46) % MCV 84.1 (80-100) fL MCH 27.1 (26-34) PG MCHC 32.2 (30-36) % RDW 18.0 H (11.6-14.8) % Plt Count 290 (150-400) X10^3/uL Neut % (Auto) 78.4 H (50-75) % Lymph % (Auto) 13.2 L (25-40) % [place] % (Auto) 7.7 (3-14) % Eos % (Auto) 0.4 L (2-4) % Baso % (Auto) 0.3 (0-2) % Neut # (Auto) 9200 H (5893-2718) /uL Lymph # (Auto) 1600 (1661-7732) /uL [place] # (Auto) 900 (0-900) /uL Eos # (Auto) 100 (0-450) /uL Baso # (Auto) 0 (0-100) /uL Sodium 140 (137-145) mmol/L Potassium 4.3 (3.4-5.1) mmol/L Chloride 113 H (98-107) mmol/L Carbon Dioxide 8 L* (22-32) mmol/L BUN 149 H* (7-17) mg/dL Creatinine 4.97 H (0.52-1.04) mg/dL Estimated GFR 9 L (>60) mL/min BUN/Creatinine Ratio 30.0 H (6-22) Glucose 54 L D (80-110) mg/dL Lactate (0.7-2.1) mmol/L Calcium 7.5 L (8.4-10.2) mg/dL Total Bilirubin 0.2 (0.2-1.3) mg/dL AST 21 (14-36) IU/L ALT 15 (<35) IU/L Alkaline Phosphatase 88 (38-126) U/L Total Creatine Kinase (30-135) U/L CK-MB (CK-2) CK-MB (CK-2) Rel Index Troponin I (0.01-0.034) ng/mL NT-Pro-B Natriuret Pep (<125) pg/mL Total Protein 5.8 L (6.3-8.2) g/dL Albumin 2.8 L (3.5-5.0) g/dL Globulin 3.0 (1.7-4.1) g/dL Albumin/Globulin Ratio 0.9 L (1.0-2.8) Lipase (23-300) U/L Procalcitonin (<0.5) ng/mL Urine Color Yellow Urine Appearance Cloudy Urine pH 5.5 (4.5-8.0) Ur Specific [place] 1.020 (1.000-1.035) Urine Protein 2+ H (Negative) Urine Glucose (UA) Negative (Negative) g/dL Urine Ketones Negative (NEGATIVE) Urine Occult Blood 2+ H (Negative) Urine Nitrate Negative (Negative) Urine Bilirubin Negative (NEGATIVE) Urine Urobilinogen 0.2 (0.2) E.U./dL Ur Leukocyte Esterase 3+ H (NEGATIVE) Urine RBC 5-10/hpf H (0-5/HPF) Urine WBC 30-100/hpf H (0-5/HPF) Urine Bacteria Moderate (10-30) H (None) Ur Culture Indicated? Specimen cultured Ur Random Sodium (30-90) mmol/L Urine Creatinine mg/dL SARS-CoV-2 (PCR) (Negative) Influenza A (RT-PCR) (NEGATIVE) Influenza B (RT-PCR) (NEGATIVE) RSV (PCR) (Negative) 06/04/22 Range/Units 09:40 WBC (4.5-11.0) X10^3/uL RBC (4.0-5.2) X10^6/uL Hgb (12.0-16.0) g/dL Hct (36-46) % MCV (80-100) fL MCH (26-34) PG MCHC (30-36) % RDW (11.6-14.8) % Plt Count (150-400) X10^3/uL Neut % (Auto) (50-75) % Lymph % (Auto) (25-40) % [place] % (Auto) (3-14) % Eos % (Auto) (2-4) % Baso % (Auto) (0-2) % Neut # (Auto) (2827-0472) /uL Lymph # (Auto) (2748-9033) /uL [place] # (Auto) (0-900) /uL Eos # (Auto) (0-450) /uL Baso # (Auto) (0-100) /uL Sodium (137-145) mmol/L Potassium (3.4-5.1) mmol/L Chloride (98-107) mmol/L Carbon Dioxide (22-32) mmol/L BUN (7-17) mg/dL Creatinine (0.52-1.04) mg/dL Estimated GFR (>60) mL/min BUN/Creatinine Ratio (6-22) Glucose (80-110) mg/dL Lactate (0.7-2.1) mmol/L Calcium (8.4-10.2) mg/dL Total Bilirubin (0.2-1.3) mg/dL AST (14-36) IU/L ALT (<35) IU/L Alkaline Phosphatase (38-126) U/L Total Creatine Kinase (30-135) U/L CK-MB (CK-2) CK-MB (CK-2) Rel Index Troponin I (0.01-0.034) ng/mL NT-Pro-B Natriuret Pep (<125) pg/mL Total Protein (6.3-8.2) g/dL Albumin (3.5-5.0) g/dL Globulin (1.7-4.1) g/dL Albumin/Globulin Ratio (1.0-2.8) Lipase (23-300) U/L Procalcitonin (<0.5) ng/mL Urine Color Urine Appearance Urine pH (4.5-8.0) Ur Specific [place] (1.000-1.035) Urine Protein (Negative) Urine Glucose (UA) (Negative) g/dL Urine Ketones (NEGATIVE) Urine Occult Blood (Negative) Urine Nitrate (Negative) Urine Bilirubin (NEGATIVE) Urine Urobilinogen (0.2) E.U./dL Ur Leukocyte Esterase (NEGATIVE) Urine RBC (0-5/HPF) Urine WBC (0-5/HPF) Urine Bacteria (None) Ur Culture Indicated? Ur Random Sodium 31 (30-90) mmol/L Urine Creatinine 86.1 mg/dL SARS-CoV-2 (PCR) (Negative) Influenza A (RT-PCR) (NEGATIVE) Influenza B (RT-PCR) (NEGATIVE) RSV (PCR) (Negative) Point of Care Testing Glucose POC 361 MDM Narrative Medical decision making narrative: Patient 72-year-old female chronically ill history of hypertension hyperlipidemia presenting today for generalized weakness. She is found to have acute kidney injury with a creatinine of 5.1 BUN of 147. Previous creatinine was 04/30/2022 at 1.38. Dupont catheter initially placed without any urine out. Patient has had very little intake her antibiotics have made her extremely nauseous. She has a wound on her abdomen she is chronic and she is being followed by wound care. Dressing has been placed. After 1 L patient did make about 50 cc of urine. It does show bacteria no nitrates, but 3+ leukocytes. She is given antibiotics Rocephin IV. She is feeling a bit better after some fluids. I suspect that this is all acute kidney injury secondary to dehydration and poor intake. CT abdomen shows large right anterior abdominal wall hernia seen inferiorly no evidence of kidney abnormality. Concern that patient may require dialysis or Nephrology. She is placed on multiple list but unable to be transferred currently. Patient signed out to Dr. Madden for further management. [[id number]] ([place]) Patient received in sign out from [[place]]. I have reviewed the clinical course and performed an independent history and physical exam. I subsequently discussed this case with Dr. Goldman (Neph[facility] at [facility]) happy with treatments thusfar, recommends call to hospitalist. Call to Dr. Recio ([facility]) happy toa ccept, request the addition of D5W with 3 amps of bicarb at 125 cc/hour <Sabas Matthews, DO - Last Filed: 06/04/22 18:30> Critical Care Time Critical Care Time: Yes Total Critical Care Time: 45 Attestation: The high probability of a clinically significant, sudden or life threatening deterioration of the [] system(s) required my full and direct attention, intervention and personal management. The aggregate critical care time was [45] minutes. This time is in addition to time spent performing reported procedures but includes the following: [x] Data Review and interpretation [x] Patient assessment and monitoring of vital signs [x] Documentation [x] Medication orders and management Discharge Plan Departure Patient Disposition: [facility] Clinical Impression: Acute kidney injury, Metabolic acidosis Prescriptions: No Action pioglitazone 15 mg tablet 15 mg PO DAILY Qty: 90 3RF (DME) Disabled Parking See Rx Instructions .ROUTE .MEDSUPPLY Qty: 1 0RF Rx Instructions: Patient qualifies for disabled parking as per the attached form. paroxetine HCl 20 mg tablet 20 mg PO DAILY Qty: 90 3RF lisinopril 10 mg tablet 10 mg PO DAILY Qty: 90 3RF simvastatin 40 mg tablet 40 mg PO BEDTIME Qty: 90 3RF metformin 1,000 mg tablet 1,000 mg PO BID Qty: 180 3RF glimepiride 2 mg tablet 2 mg PO DAILY Qty: 90 3RF oxycodone 5 mg tablet 5 mg PO Q6H PRN (Reason: pain) Qty: 30 0RF calcium citrate 1,000 mg tablet 1,000 mg PO BID multivitamin Tablet 1 tab PO DAILY aspirin [Adult Low Dose Aspirin] 81 mg tablet,delayed release (DR/EC) 81 mg PO DAILY cholecalciferol (vitamin D3) 10 mcg (400 unit) capsule 10 mcg PO DAILY furosemide 20 mg tablet 20 mg PO DAILY Qty: 90 3RF potassium chloride 10 mEq tablet extended release 10 meq PO DAILY Qty: 90 3RF omeprazole magnesium 20 mg capsule,delayed release(DR/EC) 20 mg PO DAILY metoprolol tartrate 50 mg tablet 25 mg PO BID Qty: 90 3RF magnesium oxide 400 mg magnesium tablet 400 mg PO BID Qty: 30 0RF ascorbate calcium (vitamin C) 500 mg Tablet 500 mg PO DAILY krill oil 500 mg Capsule 500 mg PO DAILY vitamin B complex Tablet 1 tab PO DAILY Referrals: Galo Bucio MD [Primary Care Provider] -
[2022-06-03 15:41] LABS: Creatine Kinase 37 U/L (30-135)
--- NOTE | 2022-06-03 15:51 | DI.CT.S_ITS ---
PROCEDURE: CT ABDOMEN PELVIS WO CON INDICATIONS: renal failure, right sided hernia TECHNIQUE: Axial sections were acquired from the lung bases to the pubic symphysis. Coronal and sagittal reformats were performed. For radiation dose reduction, the following was used: automated exposure control, adjustment of mA and/or kV according to patient size. COMPARISON: [facility], CT, CT LUMBAR SPINE WO CON, 04/25/2022, 14:18. [facility], CT, CT ABDOMEN PELVIS WO CON, 03/14/2022, 12:59. [facility], CR, XR CHEST 1V, 06/03/2022, 16:36. [facility], CT, CT ABDOMEN PELVIS W CON, 04/30/2022, 13:07. FINDINGS: Image quality: Excellent. Lung bases: Unremarkable. Heart: No significant findings. URINARY: Right Kidney: No stones or hydronephrosis. Right Ureter: No hydroureter. Left Kidney: No stones or hydronephrosis. Left Ureter: No hydroureter. Bladder: A Dupont catheter is seen, which decompresses the bladder. ABDOMEN: Liver: Unremarkable. Gallbladder: Removed. Biliary ducts: Unremarkable. Pancreas: Unremarkable. Spleen: Unremarkable. Adrenal Glands: Unremarkable. Stomach and Bowel: A lap band is seen. No dilated loops of small bowel are seen. There is a proximal colon anastomotic staple line seen within the hernia, as on series 2 images 43 through 48. Peritoneum: No abnormal intraperitoneal fluid. No free air. Ventral Wall: There is a large anterior abdominal wall hernia seen inferiorly, to the right of the midline. The hernia contains nondilated colon and nondilated small bowel. Abdominal Nodes: No enlarged retroperitoneal or mesenteric lymph nodes. Vessels: Aorta and inferior vena cava are normal in size. PELVIS: Pelvic Organs: The uterus appears normal for age. No adnexal masses are seen. Pelvic Nodes: Unremarkable. Miscellaneous: No inguinal hernias are seen. Bones: Degenerative changes are seen throughout, which are worst involving the thoracolumbar junction. Mild dextroconvex scoliotic curvature is seen. There is a remote, stable L5 compression deformity seen, with 4-5 mm posterior displacement fracture fragments. Severe central canal narrowing can be seen at L4-L5. IMPRESSION: No acute abnormality is seen. There is a large right anterior abdominal wall hernia seen inferiorly, without findings of obstruction. No findings of kidney stones or obstructive uropathy. Additional findings: Cholecystectomy Lap band Dextroconvex scoliotic curvature Focal thoracolumbar junction degenerative change Stable chronic L5 compression deformity Severe central canal narrowing at L4-L5. Proximal colon anastomotic staple line Dupont catheter Dictated by: Rodolfo Woodard M.D. on 06/03/2022 at 15:59 Approved by: Rodolfo Woodard M.D. on 06/03/2022 at 16:03
[2022-06-03 15:54] LABS: NT-proBNP (BNP-Adult 18+) 1530 pg/mL (<125); Troponin I < 0.012 ng/mL (0.01-0.034)
[2022-06-03] MEDS: SODIUM CHLORIDE 0.9% 1,000 ML 1000 ML IV (15:57)
--- NOTE | 2022-06-03 16:09 | DI.RAD.S_ITS ---
PROCEDURE: XR CHEST 1V INDICATIONS: weakness TECHNIQUE: One view of the chest was acquired. COMPARISON: [facility], CT, CT ABDOMEN PELVIS WO CON, 06/03/2022, 16:06. [facility], CT, CT ANGIO CHEST PE PROTOCOL, 03/06/2022, 17:20. [facility], CR, XR CHEST 1V, 03/06/2022, 14:35. [facility], CR, XR CHEST 1V, 04/30/2022, 11:34. FINDINGS: This study is limited by body habitus. Surgical changes and devices: Sternotomy wires are seen. Cholecystectomy clips are seen. Lungs and pleura: On this semiupright portable chest examination, no large pneumothorax or large pleural effusions are seen. No focal infiltrates are seen. Low lung volumes are noted. This causes a crowded appearance to the lung markings and limits evaluation. Mediastinum: Mediastinal contours appear normal. Heart size is at the upper limits of normal. Bones and chest wall: No suspicious bony lesions. Age-appropriate bony degenerative changes are seen. Overlying soft tissues appear unremarkable. IMPRESSION: Limited portable chest examination, without a significant cardiopulmonary abnormality identified. Postoperative and degenerative changes are seen. Dictated by: Rodolfo Woodard M.D. on 06/03/2022 at 15:57 Approved by: Rodolfo Woodard M.D. on 06/03/2022 at 15:58
[2022-06-03 16:10] LABS: Procalcitonin 0.92 ng/mL (<0.5)
[2022-06-03] MEDS: SODIUM CHLORIDE 0.9% 1,000 ML 125 ML IV (18:05)
--- NOTE | 2022-06-03 18:26 | PC.NURSE ---
In regards to Transfer: sent face sheets to [employer], [employer], [employer] and [employer]. No capacity at [facility] or [facility]. Tashia Walls states to call 06/04/22 t check back. Pushed images to [employer] and [employer] as requested.
[2022-06-03 18:29] LABS: Appearance Urine UA CLOUDY; Bilirubin Urine UA NEGATIVE (NEGATIVE); Color Urine UA YELLOW; Glucose Urine UA NEGATIVE (Negative); Ketones Urine UA NEGATIVE (NEGATIVE); Leukocyte Esterase Urine UA 3+ (NEGATIVE); Nitrite Urine UA NEGATIVE (Negative); Occult Blood Urine UA 2+ (Negative); Protein Urine UA 2+ (Negative); Urobilinogen Urine UA 0.2 E.U./dL (0.2)
[2022-06-03 18:30] LABS: Culture Indicated Urine Specimen Cultured; pH Urine UA 5.5 (4.5-8.0)
[2022-06-03] MEDS: hydrOXYzine pamoate 25 MG CAPSULE PO (18:38)
[2022-06-03] MEDS: OXYCODONE IR 5 MG TABLET PO (18:38)
[2022-06-03 18:39] LABS: Bacteria Urine Moderate (10-30); RBC Urine 5-10/HPF (0-5/HPF); WBC Urine 30-100/HPF (0-5/HPF)
[2022-06-03] MEDS: cefTRIAXone 2,000 MG in SODIUM CHLORIDE 0.9% 100 ML 200 MG IV (19:36)
[2022-06-03] MEDS: HEPARIN 5,000 UNIT/ML VIAL 5000 UNIT SUBCUT (21:30)
[2022-06-04] VITALS (101 sets, daily range): BP systolic 89–135; BP diastolic 51–88; PULSE 83–99; RESP 21; TEMP 37.2; O2SAT 88–98
[2022-06-04] MEDS: OXYCODONE 5 MG/5 ML ORAL SOLUTION PO (02:14)
[2022-06-04] MEDS: ACETAMINOPHEN 325 MG TABLET 650 MG PO ×3 (02:14→16:11)
[2022-06-04 06:23] LABS: Add Manual Diff / Slide Review NO; Basophils Absolute Auto 0 /uL (0-100); Basophils Percent Auto 0.3 % (0-2); Eosinophils Absolute Auto 100 /uL (0-450); Eosinophils Percent Auto 0.4 % (2-4); Hematocrit 32.4 % (36-46); Hemoglobin 10.4 g/dL (12.0-16.0); Lymphocytes Absolute Auto 1600 /uL (1100-4500); Lymphocytes Percent Auto 13.2 % (25-40); Mean Corpuscular HGB Conc 32.2 % (30-36); Mean Corpuscular Hemoglobin 27.1 PG (26-34); Mean Corpuscular Volume 84.1 fL (80-100); Monocytes Absolute Auto 900 /uL (0-900); Monocytes Percent Auto 7.7 % (3-14); Neutrophils Absolute Auto 9200 /uL (1500-7000); Neutrophils Percent Auto 78.4 % (50-75); Platelet Count 290 X10^3/uL (150-400); Red Blood Cell Count 3.85 X10^6/uL (4.0-5.2); White Blood Cell Count 11.8 X10^3/uL (4.5-11.0)
[2022-06-04 06:29] LABS: Alanine Aminotransferase 15 IU/L (<35); Albumin 2.8 g/dL (3.5-5.0); Albumin Globulin Ratio 0.9 (1.0-2.8); Alkaline Phosphatase 88 U/L (38-126); Aspartate Aminotransferase 21 IU/L (14-36); Bilirubin Total 0.2 mg/dL (0.2-1.3); Calcium 7.5 mg/dL (8.4-10.2); Chloride 113 mmol/L (98-107); Estimated Glomerular Filt Rate 9 mL/min (>60); Glucose 54 mg/dL (80-110); HEMOLYSIS < 15 (0-50); Sodium 140 mmol/L (137-145); Total Protein 5.8 g/dL (6.3-8.2)
[2022-06-04 06:48] LABS: Potassium 4.3 mmol/L (3.4-5.1)
[2022-06-04 06:51] LABS: Carbon Dioxide 8 mmol/L (22-32)
[2022-06-04 06:52] LABS: Blood Urea Nitrogen 149 mg/dL (7-17)
[2022-06-04] MEDS: cefTRIAXone 1,000 MG in SODIUM CHLORIDE 0.9% 100 ML 200 MG IV (08:20)
[2022-06-04] MEDS: HEPARIN 5,000 UNIT/ML VIAL 5000 UNIT SUBCUT (08:21)
[2022-06-04] MEDS: SODIUM CHLORIDE 0.9% 1,000 ML 1000 ML IV (08:22)
[2022-06-04] MEDS: ONDANSETRON 4 MG ODT PO (09:51)
[2022-06-04] MEDS: SODIUM CHLORIDE 0.9% 1,000 ML 125 ML IV (10:11)
[2022-06-04 10:34] LABS: Creatinine Urine Random 86.1 mg/dL; Sodium Urine Random 31 mmol/L (30-90)
[2022-06-04] MEDS: OXYCODONE IR 5 MG TABLET PO (11:52)
[2022-06-04] MEDS: WATER IV (14:38)
[2022-06-04] MEDS: SODIUM BICARB IV (14:38)
[2022-06-04] MEDS: DEXTROSE 5% IV (14:38)
--- NOTE | 2022-06-04 18:41 | PC.NURSE ---
Daughter took patient meño blackwell and vinayak with patient consent. Patient left with all the other material including her cell phone. Patient report given to Pawel [facility]CCLA[facility] and SARAHI Bella at [facility].
== END 2022-06-04 18:25 | disposition short-term general hospital (02) ==
PROVIDERS: Emergency Medicine; Emergency Provider Emergency Medicine; PCP Internal Medicine
DX: N17.9 Acute kidney failure, unspecified (principal); E87.21 Acute metabolic acidosis; R79.81 Abnormal blood-gas level; R79.89 Other specified abnormal findings of blood chemistry; K46.9 Unspecified abdominal hernia without obstruction or gangrene; Z79.82 Long term (current) use of aspirin; Z20.822 Contact with and (suspected) exposure to COVID-19
CPT/HCPCS: 0241U; 36415; 71045; 74176; 80053; 81001; 82550; 82570; 82962; 83605; 83690; 83880; 84145; 84300; 84484; 85025; 87077; 87086; 87186; 93005; 96361; 96365; 96366; 96367; 96372; 96375; 99285; 99291; J0696; J1644; J2405

== ENCOUNTER → 2022-06-21 10:05 | Outpatient (CLI) | payer MEDICARE, OTHER, SELFPAY ==
[2022-03-06 21:52] VITALS: BMI 48.6
== END ==
PROVIDERS: PCP Internal Medicine; Referring Provider Internal Medicine; Visit Provider Surgery
DX: S31.103A Unspecified open wound of abdominal wall, right lower quadrant without penetration into peritoneal cavity, initial encounter (principal); E11.628 Type 2 diabetes mellitus with other skin complications
CPT/HCPCS: 11042; 11045

== ENCOUNTER → 2022-06-26 11:07 | Outpatient (CLI) | payer MEDICARE, OTHER, SELFPAY ==
[2022-03-06 21:52] VITALS: BMI 48.6
[2022-06-26 11:35] LABS: Hematocrit 32.7 % (36-46); Hemoglobin 10.6 g/dL (12.0-16.0); Mean Corpuscular HGB Conc 32.3 % (30-36); Mean Corpuscular Hemoglobin 27.9 PG (26-34); Mean Corpuscular Volume 86.4 fL (80-100); Platelet Count 420 X10^3/uL (150-400); Red Blood Cell Count 3.78 X10^6/uL (4.0-5.2); Red Cell Distribution Width 17.9 % (11.6-14.8); White Blood Cell Count 6.8 X10^3/uL (4.5-11.0)
[2022-06-26 11:40] LABS: Add Manual Diff / Slide Review YES
[2022-06-26 11:52] LABS: Neutrophils Absolute Manual 4624 /uL (3000-5900); Total Cells Counted 100
[2022-06-26 11:53] LABS: Anisocytosis 1+
[2022-06-26 13:17] LABS: Alanine Aminotransferase 39 IU/L (<35); Albumin 3.5 g/dL (3.5-5.0); Albumin Globulin Ratio 1.1 (1.0-2.8); Alkaline Phosphatase 88 U/L (38-126); Aspartate Aminotransferase 43 IU/L (14-36); BUN Creatinine Ratio 19.2 (6-22); Bilirubin Total 0.7 mg/dL (0.2-1.3); Blood Urea Nitrogen 15 mg/dL (7-17); Calcium 9.4 mg/dL (8.4-10.2); Carbon Dioxide 25 mmol/L (22-32); Chloride 101 mmol/L (98-107); Estimated Glomerular Filt Rate > 60 mL/min (>60); Globulin 3.3 g/dL (1.7-4.1); Glucose 112 mg/dL (80-110); HEMOLYSIS 25 (0-50); Magnesium 1.5 mg/dL (1.6-2.3); Potassium 5.1 mmol/L (3.4-5.1); Sodium 139 mmol/L (137-145); Total Protein 6.8 g/dL (6.3-8.2)
== END ==
PROVIDERS: PCP Internal Medicine; Referring Provider Internal Medicine; Visit Provider Internal Medicine
DX: D64.9 Anemia, unspecified (principal); I10 Essential (primary) hypertension
CPT/HCPCS: 36415; 80053; 83735; 85007; 85025

== ENCOUNTER → 2022-06-27 09:49 | Outpatient (CLI) | payer MEDICARE, OTHER, SELFPAY ==
[2022-03-06 21:52] VITALS: BMI 48.6
== END ==
PROVIDERS: PCP Internal Medicine; Referring Provider Internal Medicine; Visit Provider Surgery
DX: E11.628 Type 2 diabetes mellitus with other skin complications (principal); S31.103A Unspecified open wound of abdominal wall, right lower quadrant without penetration into peritoneal cavity, initial encounter; L89.323 Pressure ulcer of left buttock, stage 3
CPT/HCPCS: 11042; 11045; 15271; 15272; 97597; 99213; Q4196

== ENCOUNTER → 2022-07-04 09:57 | Outpatient (CLI) | payer MEDICARE, OTHER, SELFPAY ==
[2022-03-06 21:52] VITALS: BMI 48.6
== END ==
PROVIDERS: PCP Internal Medicine; Referring Provider Internal Medicine; Visit Provider Surgery
DX: E11.628 Type 2 diabetes mellitus with other skin complications (principal); S31.103A Unspecified open wound of abdominal wall, right lower quadrant without penetration into peritoneal cavity, initial encounter
CPT/HCPCS: 97597; 97598

== ENCOUNTER → 2022-07-11 09:58 | Outpatient (CLI) | payer MEDICARE, OTHER, SELFPAY ==
[2022-03-06 21:52] VITALS: BMI 48.6
== END ==
PROVIDERS: PCP Internal Medicine; Referring Provider Internal Medicine; Visit Provider Surgery
DX: E11.628 Type 2 diabetes mellitus with other skin complications (principal); S31.103A Unspecified open wound of abdominal wall, right lower quadrant without penetration into peritoneal cavity, initial encounter
CPT/HCPCS: 97597; 97598; 99213